=== PATIENT | female | born 1990 | race Caucasian/White ===

== ENCOUNTER → 2019-06-17 | Outpatient (CLI) | payer OTHER, SELFPAY ==
[2019-06-17 15:11] VITALS: BMI 30.3
[2019-06-17 17:40] LABS: Absolute Lymphocyte Count 1.62 X10^3/uL (0.83-4.51); Absolute Neutrophil Count 4.8 X10^3/uL (2.0-7.7); Basophil# 0.03 X10^3/uL; Basophil% 0.4 % (0-1); Eosinophil# 0.05 X10^3/uL; Eosinophils% 0.7 % (0-5); Hematocrit 39.1 % (37-47); Hemoglobin 12.9 g/dL (12.0-15.0); Lymphocyte # 1.62 X10^3/ul (4.0); Lymphocyte % 23.2 % (19-41); Mean Corpuscular Hgb 29.4 pg (27.0-32.0); Mean Corpuscular Volume 89.1 fL (81-99); Mean Platelet Vol. 10.4 fl (6.2-12.0); Monocyte# 0.45 X10^3/uL; Monocyte% 6.5 % (0-10); NRBC Flagged by Analyzer 0 % (0-5); Neutrophil # 4.79 X10^3/uL (2.7-7.7); Neutrophil % 68.8 % (47-70); Platelet Count 242 K/mm3 (150-450); RBC Distribution Width CV 11.9 % (11.6-14.6); RBC Distribution Width SD 39.1 fl (35.1-43.9); Red Blood Count 4.39 M/mm3 (4.2-5.4)
[2019-06-17 18:49] LABS: HIV - WCH Non-Reactive (Nonreactive); Rubella IgG 95.9 IU/mL
[2019-06-20 09:41] LABS: HPV Reflexed? NOT INDICATED
[2019-06-21 04:45] LABS: Rapid Plasmin Reagin (RPR) NONREACTIVE (NONREACTIVE)
== END | disposition home or self-care (01) ==
LOC: LAB 16:05
PROVIDERS: Family Provider Pediatrics; PCP Pediatrics; Referring Provider Nurse Practitioner Women's Health; Visit Provider Nurse Practitioner Women's Health
DX: Z34.90 Encounter for supervision of normal pregnancy, unspecified, unspecified trimester (principal)
CPT/HCPCS: 36415; 85025; 86592; 86703; 86762; 86850; 86900; 87086; 87088; 87624; 88175; G0145

== ENCOUNTER → 2019-07-19 | Outpatient (CLI) | payer OTHER, SELFPAY ==
[2019-07-19 17:00] VITALS: BMI 30.3
[2019-07-19 19:06] LABS: Chlamydia Trachomatis by PCR Negative (Negative); Neisserai gonorrhoeae by PCR Negative (Negative); Probe Check PASS; Sample Adequacy Control PASS; Specimen Processing Control PASS
== END | disposition home or self-care (01) ==
LOC: LAB 17:13
PROVIDERS: Family Provider Pediatrics; PCP Pediatrics; Referring Provider Obstetrics & Gynecology; Visit Provider Obstetrics & Gynecology
DX: Z34.81 Encounter for supervision of other normal pregnancy, first trimester (principal)
CPT/HCPCS: 36415; 87491; 87591

== ENCOUNTER → 2019-11-07 12:36 | Outpatient (CLI) | payer OTHER, SELFPAY ==
[2019-10-08 16:01] VITALS: BMI 30.3
[2019-11-07 13:03] LABS: Absolute Lymphocyte Count 1.56 X10^3/uL (0.83-4.51); Absolute Neutrophil Count 5.1 X10^3/uL (2.0-7.7); Basophil# 0.03 X10^3/uL; Basophil% 0.4 % (0-1); Eosinophil# 0.08 X10^3/uL; Eosinophils% 1.1 % (0-5); Hematocrit 33.8 % (37-47); Hemoglobin 11.3 g/dL (12.0-15.0); Lymphocyte # 1.56 X10^3/ul (4.0); Lymphocyte % 21.2 % (19-41); Mean Corp Hgb Conc 33.4 g/dL (32-36); Mean Corpuscular Hgb 30.2 pg (27.0-32.0); Mean Corpuscular Volume 90.4 fL (81-99); Monocyte# 0.51 X10^3/uL; Monocyte% 6.9 % (0-10); NRBC Flagged by Analyzer 0 % (0-5); Neutrophil # 5.12 X10^3/uL (2.7-7.7); Neutrophil % 69.7 % (47-70); Platelet Count 203 K/mm3 (150-450); RBC Distribution Width CV 12.7 % (11.6-14.6); RBC Distribution Width SD 41.3 fl (35.1-43.9); Red Blood Count 3.74 M/mm3 (4.2-5.4); White Blood Count 7.4 K/mm3 (4.4-11.0)
[2019-11-07 13:29] LABS: Glucose Challenge Gest 1H 50g 85 mg/dL (70-140)
[2019-11-07 13:57] LABS: Hepatitis B Surface Antigen Non-Reactive (Nonreactive)
== END ==
PROVIDERS: Family Provider Family Medicine; PCP Family Medicine; Referring Provider Obstetrics & Gynecology; Visit Provider Obstetrics & Gynecology
DX: Z34.00 Encounter for supervision of normal first pregnancy, unspecified trimester (principal)
CPT/HCPCS: 36415; 82950; 85025; 87340

== ENCOUNTER → 2020-01-03 | Outpatient (CLI) | payer OTHER, SELFPAY ==
[2020-01-03 16:13] VITALS: BMI 30.3
== END | disposition home or self-care (01) ==
LOC: LABSPEC 16:40
PROVIDERS: PCP Family Medicine; Referring Provider Obstetrics & Gynecology; Visit Provider Obstetrics & Gynecology
DX: Z34.93 Encounter for supervision of normal pregnancy, unspecified, third trimester (principal); Z3A.36 36 weeks gestation of pregnancy
CPT/HCPCS: 87081

== ENCOUNTER 2020-01-15 15:05 | Outpatient (CLI) | payer OTHER, SELFPAY ==
[2020-01-15 14:38] VITALS: BMI 30.3
[2020-01-15 15:21] VITALS: BMI 31.6
[2020-01-15 15:46] VITALS: BP 131/87; PULSE 86
[2020-01-15 15:53] LABS: Hematocrit 31.9 % (37-47); Hemoglobin 10.3 g/dL (12.0-15.0); Mean Corp Hgb Conc 32.3 g/dL (32-36); Mean Corpuscular Hgb 27.8 pg (27.0-32.0); Mean Corpuscular Volume 86.2 fL (81-99); Mean Platelet Vol. 12.3 fl (6.2-12.0); Platelet Count 157 K/mm3 (150-450); RBC Distribution Width CV 12.8 % (11.6-14.6); RBC Distribution Width SD 39.3 fl (35.1-43.9); White Blood Count 8.4 K/mm3 (4.4-11.0)
[2020-01-15 15:57] LABS: International Normalized Ratio 0.9; Partial Thromboplast Time 26.9 Seconds (24.1-36.2); Prothrombin Time (Protime)PT. 12.4 SECONDS (11.7-14.9)
[2020-01-15 16:02] VITALS: BP 135/80; PULSE 78
[2020-01-15 16:17] VITALS: BP 125/84; PULSE 83
[2020-01-15 16:32] VITALS: BP 135/93; PULSE 86
[2020-01-15 16:47] VITALS: BP 128/86; PULSE 79
[2020-01-15 16:52] LABS: AST(SGOT) 14 U/L (15-37); Alanine Aminotransfer ALT/SGPT 13 U/L (13-56); Creatinine, Serum 0.98 mg/dL (0.55-1.02); EST Glomerular Filtration Rate 72 mL/min (>60); Est Glom Filt Rate - Afr Amer 87 mL/min (>60); Estimated Creatinine Clearance 77.59 ml/min; Protein, Urine (Random) 19.7 mg/dL (<11.9); Protein:Creat Ratio 124 mg/g CRE (0-200); Uric Acid 5.7 mg/dL (2.6-6.0)
--- NOTE | 2020-01-16 16:27 | OB.TRI.PN ---
Progress Notes Date of Service: 01/15/20 Progress Note: Patient seen for elevated blood pressure in the office heart tone 130 moderate variability reactive no decelerations category 1 tracing [place]: No regular contractions Assessment and plan elevated blood pressure in the office with repeat blood pressures within normal limits normal preeclampsia labs. Patient asymptomatic at this time. Recommend preeclampsia precautions reviewed follow-up in the office for a blood pressure check. Laboratory Studies: Laboratory Tests 01/15/20 01/15/20 01/15/20 Range/Units 15:35 15:35 15:35 WBC (4.4-11.0) K/mm3 RBC (4.2-5.4) M/mm3 Hgb (12.0-15.0) g/dL Hct (37-47) % MCV (81-99) fL MCH (27.0-32.0) pg MCHC (32-36) g/dL RDW Std Deviation (35.1-43.9) fl RDW Coeff of Janelle (11.6-14.6) % Plt Count (150-450) K/mm3 MPV (6.2-12.0) fl PT 12.4 (11.7-14.9) SECONDS INR 0.9 APTT 26.9 (24.1-36.2) Seconds Creatinine 0.98 (0.55-1.02) mg/dL Estim Creat Clear Calc 77.59 ml/min Est GFR (MDRD) Af Amer 87 (>60) mL/min Est GFR (MDRD) Non-Af 72 (>60) mL/min Uric Acid 5.7 (2.6-6.0) mg/dL AST 14 L (15-37) U/L ALT 13 (13-56) U/L U Random Total Protein 19.7 H (<11.9) mg/dL Urine Creatinine 159.00 (NO RANGE EST.) mg/dL Protein/Creatinin Ratio 124 (0-200) mg/g CRE 01/15/20 Range/Units 15:35 WBC 8.4 (4.4-11.0) K/mm3 RBC 3.70 L (4.2-5.4) M/mm3 Hgb 10.3 L (12.0-15.0) g/dL Hct 31.9 L (37-47) % MCV 86.2 (81-99) fL MCH 27.8 (27.0-32.0) pg MCHC 32.3 (32-36) g/dL RDW Std Deviation 39.3 (35.1-43.9) fl RDW Coeff of Janelle 12.8 (11.6-14.6) % Plt Count 157 (150-450) K/mm3 MPV 12.3 H (6.2-12.0) fl PT (11.7-14.9) SECONDS INR APTT (24.1-36.2) Seconds Creatinine (0.55-1.02) mg/dL Estim Creat Clear Calc ml/min Est GFR (MDRD) Af Amer (>60) mL/min Est GFR (MDRD) Non-Af (>60) mL/min Uric Acid (2.6-6.0) mg/dL AST (15-37) U/L ALT (13-56) U/L U Random Total Protein (<11.9) mg/dL Urine Creatinine (NO RANGE EST.) mg/dL Protein/Creatinin Ratio (0-200) mg/g CRE Multi Select Codes - Urinary/Genital Urinary/Genital CPT Codes: 03325-65 non-stress test Interp
== END 2020-01-15 17:05 | disposition home or self-care (01) ==
LOC: WPOUT 15:15 → OBT 15:17
PROVIDERS: PCP Family Medicine; Referring Provider Obstetrics & Gynecology; Visit Provider Obstetrics & Gynecology
DX: O26.899 Other specified pregnancy related conditions, unspecified trimester (principal); R03.0 Elevated blood-pressure reading, without diagnosis of hypertension; Z3A.00 Weeks of gestation of pregnancy not specified
CPT/HCPCS: 36415; 59025; 59050; 82565; 82570; 84156; 84450; 84460; 84550; 85027; 85610; 85730; 99218; G0378

== ENCOUNTER → 2020-01-17 | Outpatient (CLI) | payer OTHER, SELFPAY ==
[2020-01-15 15:21] VITALS: BMI 31.6
[2020-01-17 08:33] LABS: Absolute Lymphocyte Count 2.06 X10^3/uL (0.83-4.51); Absolute Neutrophil Count 5.3 X10^3/uL (2.0-7.7); Basophil# 0.04 X10^3/uL; Basophil% 0.5 % (0-1); Eosinophil# 0.06 X10^3/uL; Eosinophils% 0.7 % (0-5); Hematocrit 36.9 % (37-47); Lymphocyte # 2.06 X10^3/ul (4.0); Lymphocyte % 25.3 % (19-41); Mean Corp Hgb Conc 32.5 g/dL (32-36); Mean Corpuscular Hgb 28.2 pg (27.0-32.0); Mean Corpuscular Volume 86.8 fL (81-99); Monocyte# 0.55 X10^3/uL; Monocyte% 6.8 % (0-10); NRBC Flagged by Analyzer 0 % (0-5); Neutrophil # 5.33 X10^3/uL (2.7-7.7); Neutrophil % 65.6 % (47-70); Platelet Count 168 K/mm3 (150-450); RBC Distribution Width CV 12.7 % (11.6-14.6); RBC Distribution Width SD 39.4 fl (35.1-43.9); Red Blood Count 4.25 M/mm3 (4.2-5.4); White Blood Count 8.1 K/mm3 (4.4-11.0)
[2020-01-17 08:46] LABS: Protein, Urine (Random) 26.7 mg/dL (<11.9); Protein:Creat Ratio 158 mg/g CRE (0-200)
[2020-01-17 08:48] LABS: ALB/GLOB Ratio 0.7 RATIO (0.9-2.4); AST(SGOT) 14 U/L (15-37); Alanine Aminotransfer ALT/SGPT 15 U/L (13-56); Albumin, Serum 2.9 g/dL (3.2-5.0); Alkaline Phosphatase 181 U/L (45-117); Anion Gap 6 (5-15); BUN 10 mg/dL (7-18); BUN/Creat Ratio 10.8 RATIO (10-20); Calcium,Total 8.8 mg/dL (8.5-10.1); Chloride 108 mmol/L (98-107); Creatinine, Serum 0.92 mg/dL (0.55-1.02); EST Glomerular Filtration Rate 77 mL/min (>60); Est Glom Filt Rate - Afr Amer 94 mL/min (>60); Globulin 4.2 g/dL (2.2-4.2); Glucose 78 mg/dL (74-106); Potassium 3.9 mmol/L (3.5-5.1); Protein, Total 7.1 g/dL (6.4-8.2); Sodium Level 138 mmol/L (136-145)
== END | disposition home or self-care (01) ==
LOC: PAVLAB 08:16
PROVIDERS: PCP Family Medicine; Referring Provider Obstetrics & Gynecology; Visit Provider Obstetrics & Gynecology
DX: O16.3 Unspecified maternal hypertension, third trimester (principal); Z3A.00 Weeks of gestation of pregnancy not specified
CPT/HCPCS: 36415; 80053; 82570; 84156; 85025

== ENCOUNTER → 2020-01-23 | Outpatient (CLI) | payer OTHER, SELFPAY ==
[2020-01-23 08:12] VITALS: BMI 31.6
[2020-01-23 08:51] LABS: Protein, Urine (Random) 25.1 mg/dL (<11.9); Protein:Creat Ratio 171 mg/g CRE (0-200)
== END | disposition home or self-care (01) ==
LOC: LABSPEC 08:24
PROVIDERS: PCP Family Medicine; Referring Provider Obstetrics & Gynecology; Visit Provider Obstetrics & Gynecology
DX: O16.9 Unspecified maternal hypertension, unspecified trimester (principal); Z3A.00 Weeks of gestation of pregnancy not specified
CPT/HCPCS: 82570; 84156

== ENCOUNTER 2020-02-05 03:48 | Inpatient (IN) | payer OTHER, SELFPAY ==
[2020-01-10 16:05] VITALS: BMI 30.3
[2020-01-31 15:48] VITALS: BMI 31.6
[2020-02-05] VITALS (80 sets, daily range): BP systolic 105–155; BP diastolic 60–98; PULSE 65–119; RESP 16–18; TEMP 36.6–37.9; O2SAT 92–100; BMI 31.1
[2020-02-05 03:48] LABS: ROM Internal Control Test YES-OK TO RESULT pt. (Internal QC)
[2020-02-05 03:49] LABS: ROM Patient Test POSITIVE (Negative)
[2020-02-05] MEDS: Lactated Ringers 1,000 ML 200 ML IV ×3 (04:05→15:33)
[2020-02-05] MEDS: Lactated Ringers 500 ML 999 ML IV ×3 (04:10→11:56)
[2020-02-05 04:20] LABS: Absolute Lymphocyte Count 2.13 X10^3/uL (0.83-4.51); Absolute Neutrophil Count 8.8 X10^3/uL (2.0-7.7); Basophil# 0.03 X10^3/uL; Basophil% 0.3 % (0-1); Eosinophil# 0.01 X10^3/uL; Eosinophils% 0.1 % (0-5); Hematocrit 34.1 % (37-47); Hemoglobin 11.3 g/dL (12.0-15.0); Lymphocyte # 2.13 X10^3/ul (4.0); Lymphocyte % 18.1 % (19-41); Mean Corp Hgb Conc 33.1 g/dL (32-36); Mean Corpuscular Volume 84.4 fL (81-99); Monocyte# 0.72 X10^3/uL; Monocyte% 6.1 % (0-10); NRBC Flagged by Analyzer 0 % (0-5); Neutrophil # 8.77 X10^3/uL (2.7-7.7); Neutrophil % 74.5 % (47-70); Platelet Count 176 K/mm3 (150-450); Red Blood Count 4.04 M/mm3 (4.2-5.4); White Blood Count 11.8 K/mm3 (4.4-11.0)
[2020-02-05] MEDS: fentaNYL-bupivacaine (epidural) 100 ML BAG EPIDURAL ×2 (05:22→10:15)
[2020-02-05] MEDS: Ondansetron 4 MG/2 ML Vial IV ×2 (07:20→11:25)
--- NOTE | 2020-02-05 07:34 | PCM.HP.OB ---
- Problem List (1) Active labor at term Status: Acute (2) Influenza vaccine administered Status: Acute Comment: Given on 08/16/19 (3) Status: Acute Qualifiers: Comment: decline ntd screen. declines carrier screening. NIPT low risk. Anatomy US normal (4) Supervision of normal first Status: Acute Qualifiers: Comment: PRR LILLY 01/30/20 gender surprise Spouse Lynn (5) Anxiety Status: Acute Comment: no meds, counseling encouraged History Date of Admission: 02/05/20 Final LILLY: 01/30/20 Gestational age: 40 Weeks and 6 Days History of this : This is a 29 year-old, G 1P0 at 40 weeks gestational age [place] in active labor made cervical change to 4 cm with positive rupture of membranes. Patient has had an uncomplicated and denies any vaginal bleeding reports some loss of fluid admits good movement.. Medical History: Medical History (Last Reviewed 01/31/20 @ 15:22 by Hyun Moyer) Anxiety (Acute) F41.9 no meds, counseling encouraged Surgical History: Surgical History (Last Reviewed 01/31/20 @ 15:22 by Hyun Moyer) s/p right ear surgery Allergies No Known Allergies Allergy (Verified 02/05/20 03:19) Home Medications: Home Medications prenat.vits,monica,[id number] 1 tab PO DAILY 06/17/19 Smoking Status: Former smoker NST - FHR Rate Baby A Baseline: 130 Variability:: Moderate Accelerations:: 15 x 15 Decelerations:: None NST Reactive:: Yes FHR Category:: Category I Uterine Activity:: Every 3 to 5 History Past Pregnancies: Past Pregnancies Delivery Date Name GA/ Weeks Outcome Route Wt Sex Labor Length Anesthesia Delivery Location Provider FOB Labs: Mom's Labs & Results 02/05/20 02/05/20 02/05/20 03:31 04:05 04:05 WBC 11.8 H RBC 4.04 L Hgb 11.3 L Hct 34.1 L MCV 84.4 MCH 28.0 MCHC 33.1 RDW Std Deviation 39.0 RDW Coeff of Janelle 13.0 Plt Count 176 MPV 13.0 H Immature Gran % (Auto) 0.900 Neut % (Auto) 74.5 H Lymph % (Auto) 18.1 L [place] % (Auto) 6.1 Eos % (Auto) 0.1 Baso % (Auto) 0.3 Absolute Neuts (auto) 8.8 H Absolute Lymphs (auto) 2.13 Nucleated RBC % 0 Vag Amniotic Fld Detect POSITIVE H Blood Type O POSITIVE Antibody Screen NEGATIVE Course Did the patient receive Yes care? Labs Blood Type: O RH: POSITIVE RPR/VDRL/Syphilis Nonreactive Rubella status Immune HbSAg Negative Date Done: 11/07/20 Chlamydia Negative Gonorrhea Negative HIV/AIDS Non-Reactive Group B Strep: Negative Current Obstetrical History Gestational Diabetes No Incompetent Cervix No Infertility No IUGR No Macrosomia No Hypertension/Pre-eclampsia No: had elevated bp x2, lab work done once and was wnl Placenta Previa/Abruption No PTL/PROM No Uterine anomaly No Oligohydramnios No Polyhydramnios No Multiple gestation No Past Medical History Asthma No Diabetes No Hypertension No Heart disease No Mitral valve prolapse No Neurologic/Seizure disorder/ No Migraines Kidney disease No Liver disease No Varicosities No Clotting disorders/Hx of DVT No Thyroid Dysfunction No Other medical diseases No Psychiatric disorders No Major trauma No Abnormal PAP smear No Sleep apnea No Mammogram in the last 2 years No Enter DETAILS of medical hx of anxiety history Social History Marital Status: Alleged father lynn gong Hx Smoking Yes Smoking Status Former smoker Expected Infant Delivery Method: Spontaneous Vaginal Review of Systems Constitutional: Denies: Fever, Malaise Eyes: Denies: Blurred vision, Vision Change HEENT: Denies: Head Aches, Visual Changes Cardiovascular: Denies: Chest Pain, Palpitations Respiratory: Denies: Cough, Shortness of Breath, Wheezing Gastrointestinal: Denies: Abdominal Pain, Diarrhea, Nausea, Vomiting Genitourinary: Denies: Dysuria, Hematuria Musculoskeletal: Denies: Joint Pain, Muscle pain Skin: Denies: Lesions, Rash Neurological: Denies: Blurred vision, Focal weakness, Headaches Psychiatric: Denies: Anxiety, Depression Endocrine: Denies: Heat/ Cold Intolerance Hematologic/ Lymphatic: Denies: Easy Bruising, Easy Bleeding Physical Exam Vitals: Vital Signs Temp Pulse BP Pulse Ox 98.0 F 88 112/68 100 02/05/20 07:03 02/05/20 07:03 02/05/20 07:03 02/05/20 06:53 General: Alert, Cooperative, No apparent distress HEENT: Atraumatic, Normocephalic. Negative for: Thyromegaly, Lymphadenopathy Cardiovascular: Regular rate Lungs: Normal air movement Abdomen: Soft, Non Tender, Gravid Neurological: Deep Tendon Reflexes 2+/4 and Symmetrical, Neuro grossly intact. Negative for: Clonus [employer]: Normal external genitalia. Negative for: Vulvar lesions Estimated gestational size: Appropriate for gestational size Presentation: Cephalic Cervix Dilation (cm): 4 Assessment/Plan All Active Problems (Last Reviewed 01/31/20 @ 15:22 by Hyun Moyer) Active labor at term (Acute) Elevated blood pressure affecting , antepartum (Acute) Influenza vaccine administered (Acute) (Acute) Supervision of normal first (Acute) Anxiety (Acute) This is a 29 year-old, at 40 weeks gestational age presents in active labor. Patient presents IAL, plan expectant management for , AROM clear fluid, Pitocin if needed. Pain management: Plans epidural. GBS negative. Management of any complications: None I have reviewed the [facility] and made any clinically relevant updates.
[2020-02-05] MEDS: fentaNYL 100 MCG/2 ML Ampul IV (10:25)
[2020-02-05] MEDS: DiphenhydrAMINE 50 MG/ML Syringe 25 MG IV (12:47)
--- NOTE | 2020-02-05 15:43 | PCM.OPRPT ---
Problem List (1) Active labor at term Status: Acute (2) Influenza vaccine administered Status: Acute Comment: Given on 08/16/19 (3) Status: Acute Qualifiers: Comment: decline ntd screen. declines carrier screening. NIPT low risk. Anatomy US normal (4) Supervision of normal first Status: Acute Qualifiers: Comment: PRR LILLY 01/30/20 gender surprise Spouse Wilian (5) Anxiety Status: Acute Comment: no meds, counseling encouraged Vaginal Delivery Maternal Presentation: Active Labor ial Amniotic Membrane Rupture Type: Spontaneous at home Amniotic Fluid Description: Clear Final LILLY: 01/30/20 Gestational age: 41 Weeks and 0 Days Date of Procedure: 02/05/20 Pre-Operative Diagnosis: ial Post-Operative Diagnosis: same Surgery/ Procedure Performed: Spontaneous Vaginal Delivery Type of Anesthesia: None Description of Procedure: Patient began pushing and delivered the head in the KANDI presentation. The head was delivered atraumatically. The anterior and posterior shoulders delivered without complication followed by the rest of the and the was placed on the maternal abdomen. Delayed cord clamping was employed for approximately 60 seconds. Cord was clamped and cut and gentle traction was applied to the cord and the placenta delivered spontaneously immediately following it was noted to be intact with three-vessel cord. The perineum and vagina were inspected and noted to have a second-degree perineal laceration that was repaired in the usual fashion with 3-0 Vicryl Rapide. EBL was 300 cc. Patient and infant tolerated delivery well. Presentation: KANDI Placental Delivery Description: Spontaneous Placenta Disposition: [facility] Cord Entanglement: None Estimated Blood Loss: 300 Infant A gender: Male Episiotomy Description: None Laceration: Perineal Extension/lac, 2nd degree Medications given after delivery: IV Pitocin Complications: None Multi Select Codes - Urinary/Genital Urinary/Genital CPT Codes: 61317 Vaginal Delivery [facility]
[2020-02-05] MEDS: Oxytocin 30 units/NS 500 ml 30 UNITS/500 ML IV.SOLN 334 UNITS IV (15:58)
[2020-02-05] MEDS: Acetaminophen 500 MG Tablet 1000 MG PO (22:54)
[2020-02-06] VITALS: BP 117/77; PULSE 78; RESP 16; TEMP 37.1
[2020-02-06] MEDS: Naproxen 250 MG Tablet 500 MG PO (01:50)
[2020-02-06 04:55] VITALS: BP 122/60; PULSE 69; RESP 16; TEMP 37.1
[2020-02-06] MEDS: Senna/Docusate Sodium 1 Tablet PO (06:17)
[2020-02-06 08:00] VITALS: BP 125/73; PULSE 77; RESP 18; TEMP 37.1
--- NOTE | 2020-02-06 08:01 | PCM.PN.OB ---
Patient Problems: Active and Suspected Problems (Last Reviewed 01/31/20 @ 15:22 by Hyun Moyer) Active labor at term (Acute) Subjective: Doing well, no complaints.Pain controlled. Denies CP, SOB, N,V. Ambulating well, tolerating po. Lochia moderate, going well. - Physical Exam Vitals/I&O's: Vital Signs Temp Pulse Resp BP Pulse Ox 98.7 F 69 16 122/60 H 98 02/06/20 04:55 02/06/20 04:55 02/06/20 04:55 02/06/20 04:55 02/05/20 20:34 Oxygen Delivery Method Room Air Weight: 187 lb 8 oz Body Mass Index (BMI) 31.1 Intake and Output for Last 24 Hours 02/04/20 02/05/20 02/06/20 23:59 23:59 23:59 Intake Total 4049.99 / 4049.99 0 / 0 Output Total 950 / 1950 1000 / 1000 Balance 3099.99 / 2099.99 -1000 / -1000 General: Alert, Oriented x3 Abdomen: Soft, Non Tender, - - FF below U Current Medications Acetaminophen (Tylenol) 1,000 mg PO Q8H PRN PRN PRN Reason: Pain Score 1-3/10 Last Admin: 02/05/20 22:54 Dose: 1,000 mg Documented by: Bisacodyl (Dulcolax) 10 mg RECTAL UD PRN PRN Reason: If no BM Dibucaine (Dibucaine) 1 applic TOPICAL TID PRN PRN; Protocol PRN Reason: Discomfort Hydrocortisone (Hytone) 1 applic TOPICAL TID PRN PRN; Protocol PRN Reason: Discomfort Methylergonovine Maleate (Methergine) 0.2 mg IM X1 PRN PRN Reason: Excess bleeding/uterine atony Naproxen (Naprosyn) 500 mg PO Q8H PRN PRN PRN Reason: Pain Score 1-3/10 Last Admin: 02/06/20 01:50 Dose: 500 mg Documented by: Ondansetron HCl (Zofran) 4 mg IV Q4H PRN PRN PRN Reason: Nausea Oxycodone HCl (Oxyir) 5 - 10 mg PO Q4H PRN PRN PRN Reason: Pain Score 4-10/10 Multivit/Folic Acid/Iron (Prenatabs Fa) 1 tablet PO DAILY@1200 CODY Senna/Docusate Sodium (Senokot-S, Eli-Colace) 1 - 2 tablet PO DAILY PRN PRN PRN Reason: Constipation Last Admin: 02/06/20 06:17 Dose: 2 tablet Documented by: Simethicone (Mylicon) 80 mg PO PCHS PRN PRN Reason: Indigestion/Stomach pain Sodium Chloride () 5 - 15 ml IV UD PRN PRN Reason: SALINE FLUSH Medical Necessity - Tobacco Use Smoking Status: Former smoker Assessment/Plan All Active Problems (Last Reviewed 01/31/20 @ 15:22 by Hyun Moyer) Active labor at term (Acute) Elevated blood pressure affecting , antepartum (Acute) Influenza vaccine administered (Acute) (Acute) Supervision of normal first (Acute) Anxiety (Acute) s/p PPD # 1 1. routine post delivery care 2. breast feeding- support given 3. rh positive 4. rubella immune
[2020-02-06 12:00] VITALS: BP 114/76; PULSE 68; RESP 20; TEMP 36.7
[2020-02-06] MEDS: Prenatal Vits Tablet 1 TABLET PO (13:41)
[2020-02-06 16:00] VITALS: BP 120/72; PULSE 81; RESP 18; TEMP 36.3
[2020-02-06 20:23] VITALS: BP 133/91; PULSE 89; RESP 16; TEMP 36.9
[2020-02-07 01:18] VITALS: BP 126/85; PULSE 76; RESP 16; TEMP 37.3
--- NOTE | 2020-02-07 07:53 | PCM.PN.OB ---
Patient Problems: Active and Suspected Problems (Last Reviewed 01/31/20 @ 15:22 by Hyun Moyer) Active labor at term (Acute) Subjective: doing well no complaints pain controlled no CP SOB N V ambulating well tolerating po lochia moderate, going well - Physical Exam Vitals/I&O's: Vital Signs Temp Pulse Resp BP Pulse Ox 99.1 F 76 16 126/85 H 98 02/07/20 01:18 02/07/20 01:18 02/07/20 01:18 02/07/20 01:18 02/05/20 20:34 Oxygen Delivery Method Room Air Weight: 187 lb 8 oz Body Mass Index (BMI) 31.1 Intake and Output for Last 24 Hours 02/05/20 02/06/20 02/07/20 23:59 23:59 23:59 Intake Total 4049.99 / 4049.99 0 / 0 Output Total 950 / 1950 1000 / 1000 Balance 3099.99 / 2099.99 -1000 / -1000 General: Alert, Oriented x3 Current Medications Acetaminophen (Tylenol) 1,000 mg PO Q8H PRN PRN PRN Reason: Pain Score 1-3/10 Last Admin: 02/05/20 22:54 Dose: 1,000 mg Documented by: Bisacodyl (Dulcolax) 10 mg RECTAL UD PRN PRN Reason: If no BM Dibucaine (Dibucaine) 1 applic TOPICAL TID PRN PRN; Protocol PRN Reason: Discomfort Hydrocortisone (Hytone) 1 applic TOPICAL TID PRN PRN; Protocol PRN Reason: Discomfort Methylergonovine Maleate (Methergine) 0.2 mg IM X1 PRN PRN Reason: Excess bleeding/uterine atony Naproxen (Naprosyn) 500 mg PO Q8H PRN PRN PRN Reason: Pain Score 1-3/10 Last Admin: 02/06/20 01:50 Dose: 500 mg Documented by: Ondansetron HCl (Zofran) 4 mg IV Q4H PRN PRN PRN Reason: Nausea Oxycodone HCl (Oxyir) 5 - 10 mg PO Q4H PRN PRN PRN Reason: Pain Score 4-10/10 Multivit/Folic Acid/Iron (Prenatabs Fa) 1 tablet PO DAILY@1200 CODY Last Admin: 02/06/20 13:41 Dose: 1 tablet Documented by: Senna/Docusate Sodium (Senokot-S, Eli-Colace) 1 - 2 tablet PO DAILY PRN PRN PRN Reason: Constipation Last Admin: 02/06/20 06:17 Dose: 2 tablet Documented by: Simethicone (Mylicon) 80 mg PO PCHS PRN PRN Reason: Indigestion/Stomach pain Sodium Chloride () 5 - 15 ml IV UD PRN PRN Reason: SALINE FLUSH Medical Necessity - Tobacco Use Smoking Status: Former smoker Assessment/Plan All Active Problems (Last Reviewed 01/31/20 @ 15:22 by Hyun Moyer) Active labor at term (Acute) Elevated blood pressure affecting , antepartum (Acute) Influenza vaccine administered (Acute) (Acute) Supervision of normal first (Acute) Anxiety (Acute) s/p PPD # 2 1. routine post delivery care 2. breast feeding- support given 3. rh positive 4. rubella immune
[2020-02-07 07:54] VITALS: BP 126/80; PULSE 74; RESP 18; TEMP 36.6; O2SAT 97
--- NOTE | 2020-02-07 07:54 | DCINST_ITS ---
Discharge Diet: No Restrictions Discharge Activity: Return to Normal Activity, May not drive while taking narcotic pain medications., May Shower May resume sexual activity in: 4-6 weeks Call your doctor if your incision/area has: Continuous Slow Oozing, Sudden Increased Bleeding, Increased Pain/ Swelling, Increased Redness, Foul Smelling Discharge Additional Instructions: If you experience any of the following, contact your healthcare provider. * Bleeding that soaks a pad every hour for 2 hours * Fever 100.4 or higher * Unrelieved incision or abdominal pain * Swelling, redness, discharge or bleeding from your incision or episiotomy site * Your incision begins to separate * Problems urinating (including inability to urinate or burning while urinating). * Visual changes * Severe headache * Flu-like symptoms * Pain or redness in one of both of your breasts * Pain, warmth, tenderness or swelling in your legs, especially the calf area * Frequent nausea and vomiting * Symptoms of depression or anxiety If you experience any of the following, call 911 or go to the nearest Emergency Room. * Chest pain * Problems breathing * Seizure activity * Partial or complete paralysis of a body part, slurred speech, weakness or drooping of the face, or a sudden inability to walk or hold your balance Allergies/Adverse Reactions: Allergies No Known Allergies Allergy (Verified 02/05/20 03:19) Medications to take at Discharge prenat.vits,monica,[id number] 1 tab PO DAILY 06/17/19 Naproxen [Naprosyn] 250 - 500 mg PO Q8H PRN PRN #30 tab 02/07/20 The following prescriptions were given: Naproxen [Naprosyn] 250 - 500 mg PO Q8H PRN PRN #30 tab PRN Reason: MILD PAIN Transmission Status: Pending to [facility] Please Follow Up With: Chari Zheng MD - [phone] When: Call to make an appointment with your doctor in 6 weeks. If you had elevated Blood pressure or 4th degree laceration you will need to be seen in 2 weeks. Primary Care Physician: Socrates Devlin MD [Primary Care Provider] - Test Results: Test results from this visit will be discussed in further detail at your follow- up appointment, if applicable.
--- NOTE | 2020-02-07 07:54 | PCM.DCVAG ---
Discharge Diet: No Restrictions Discharge Activity: Return to Normal Activity, May not drive while taking narcotic pain medications., May Shower May resume sexual activity in: 4-6 weeks Call your doctor if your incision/area has: Continuous Slow Oozing, Sudden Increased Bleeding, Increased Pain/ Swelling, Increased Redness, Foul Smelling Discharge Additional Instructions: If you experience any of the following, contact your healthcare provider. Bleeding that soaks a pad every hour for 2 hours Fever 100.4 or higher Unrelieved incision or abdominal pain Swelling, redness, discharge or bleeding from your incision or episiotomy site Your incision begins to separate Problems urinating (including inability to urinate or burning while urinating). Visual changes Severe headache Flu-like symptoms Pain or redness in one of both of your breasts Pain, warmth, tenderness or swelling in your legs, especially the calf area Frequent nausea and vomiting Symptoms of depression or anxiety If you experience any of the following, call 911 or go to the nearest Emergency Room. Chest pain Problems breathing Seizure activity Partial or complete paralysis of a body part, slurred speech, weakness or drooping of the face, or a sudden inability to walk or hold your balance Allergies/Adverse Reactions: Allergies No Known Allergies Allergy (Verified 02/05/20 03:19) Medications to take at Discharge prenat.vits,monica,[id number] 1 tab PO DAILY 06/17/19 Naproxen [Naprosyn] 250 - 500 mg PO Q8H PRN PRN #30 tab 02/07/20 The following prescriptions were given: Naproxen [Naprosyn] 250 - 500 mg PO Q8H PRN PRN #30 tab PRN Reason: MILD PAIN Transmission Status: Pending to [facility] Please Follow Up With: Chari Zheng MD - [phone] When: Call to make an appointment with your doctor in 6 weeks. If you had elevated Blood pressure or 4th degree laceration you will need to be seen in 2 weeks. Primary Care Physician: Socrates Devlin MD [Primary Care Provider] - Test Results: Test results from this visit will be discussed in further detail at your follow-up appointment, if applicable.
[2020-02-07 08:15] VITALS: BP 126/80; PULSE 74; RESP 18; TEMP 36.6; O2SAT 97
[2020-02-07] MEDS: Senna/Docusate Sodium 1 Tablet PO (08:33)
== END 2020-02-07 11:35 | disposition home or self-care (01) | DRG 807 ==
LOC: WP 16:01
PROVIDERS: Admitting Provider Obstetrics & Gynecology; PCP Family Medicine; Referring Provider Obstetrics & Gynecology; Visit Provider Obstetrics & Gynecology
DX: O48.0 Post-term pregnancy (principal); Z37.0 Single live birth; Z3A.40 40 weeks gestation of pregnancy; O70.1 Second degree perineal laceration during delivery
CPT/HCPCS: 59025; 59050; 84112; 85025; 86850; 86900; 86901; 99218; J7120; G0378; J2405

== ENCOUNTER → 2021-03-24 | Outpatient (CLI) | payer BC, SELFPAY ==
[2021-03-24 15:38] VITALS: BMI 31.1
== END | disposition home or self-care (01) ==
LOC: LABSPEC 16:45
PROVIDERS: PCP Family Medicine; Visit Provider Nurse Practitioner Women's Health
DX: N94.9 Unspecified condition associated with female genital organs and menstrual cycle (principal)
CPT/HCPCS: 87070; 87205

== ENCOUNTER → 2021-08-11 16:33 | Outpatient (CLI) | payer BC, SELFPAY | PROVIDERS: PCP Family Medicine; Visit Provider Obstetrics & Gynecology | DX: R35.0 Frequency of micturition (principal) | CPT/HCPCS: 87086; 87088 ==

== ENCOUNTER → 2022-06-24 | Outpatient (CLI) | payer OTHER, SELFPAY ==
--- NOTE | 2022-06-24 18:25 | US_ITS ---
HISTORY: check viability. LMP: 05/07/2022. TECHNIQUE: Transvaginal pelvic ultrasound was performed. 90 images. COMPARISON: None. FINDINGS: UTERUS: 9.5 x 6 x 5 cm. RIGHT OVARY: 3 x 3.6 x 2.5 cm. 2.3 cm and 1.8 cm cysts. LEFT OVARY: 1.5 x 3.2 x 1.7 cm with small follicles. No adnexal masses. FREE FLUID: None. INTRAUTERINE GESTATIONAL SAC: Single. Mean sac diameter 2.7 cm corresponding to 7 weeks 5 days. YOLK SAC: 4 mm, slightly irregular contour. Additional 8 mm irregular yolk sac in the gestational sac without associated pole. POLE: [place]-rump length 6 mm. ESTIMATED GESTATIONAL AGE: 6 weeks 4 days. HEART MOTION: 125 bpm. ESTIMATED DELIVERY DATE: 02/09/2023. US/Transvaginal w/Preg US IMPRESSION: Single living intrauterine with an estimated gestational age of 6 weeks 4 days. Second 8 mm irregular yolk sac in the gestational sac without pole. Small right ovarian cysts. Electronically Signed: Beth Reese MD at 8:21 EDT ,
== END | disposition home or self-care (01) ==
PROVIDERS: PCP Family Medicine; Visit Provider Obstetrics & Gynecology
DX: Z34.91 Encounter for supervision of normal pregnancy, unspecified, first trimester (principal); Z3A.01 Less than 8 weeks gestation of pregnancy
CPT/HCPCS: 36415; 76817; 84702

== ENCOUNTER → 2022-07-12 | Outpatient (CLI) | payer OTHER, SELFPAY ==
[2022-07-12 16:36] LABS: Amphetamine Urine VISTA NEGATIVE (<1000 ng/mL); Barbiturate Urine VISTA NEGATIVE (< 200 ng/mL); Benzodiazepine Urine VISTA NEGATIVE (< 200 ng/mL); Cocaine Urine VISTA NEGATIVE (< 300 ng/mL); Ecstacy Urine VISTA NEGATIVE (< 500 ng/mL); Methadone Urine VISTA NEGATIVE (< 300 ng/mL); PCP Urine VISTA NEGATIVE (< 25 ng/mL); THC Urine VISTA NEGATIVE (< 50 ng/mL); Vista UDS pH Range 4
[2022-07-15 00:06] LABS: Chlamydia By Nucleic Acid AMP Negative (Negative)
[2022-07-17 14:20] LABS: Gonococcus By Nucleic Acid AMP Negative (Negative)
[2022-07-21 16:41] LABS: HPV Reflexed? NOT INDICATED
== END | disposition home or self-care (01) ==
LOC: LABSPEC 15:59
PROVIDERS: PCP Family Medicine; Visit Provider Obstetrics & Gynecology
DX: Z34.90 Encounter for supervision of normal pregnancy, unspecified, unspecified trimester (principal)
CPT/HCPCS: 80307; 87086; 87088; 87491; 87591; 88175; G0145

== ENCOUNTER → 2022-08-12 | Outpatient (CLI) | payer OTHER, SELFPAY ==
[2022-08-12 11:15] LABS: Absolute Lymphocyte Count 1.82 X10^3/uL (0.83-4.51); Absolute Neutrophil Count 4.2 X10^3/uL (2.0-7.7); Basophil# 0.03 X10^3/uL; Basophil% 0.5 % (0-1); Eosinophil# 0.06 X10^3/uL; Eosinophils% 0.9 % (0-5); Hematocrit 36.2 % (37-47); Hemoglobin 12.4 g/dL (12.0-15.0); Lymphocyte # 1.82 X10^3/ul (0.83-4.51); Mean Corp Hgb Conc 34.3 g/dL (32-36); Mean Corpuscular Hgb 29.9 pg (27.0-32.0); Mean Corpuscular Volume 87.2 fL (81-99); Mean Platelet Vol. 10.4 fl (6.2-12.0); Monocyte# 0.38 X10^3/uL; Monocyte% 5.8 % (0-10); NRBC Flagged by Analyzer 0 % (0-5); Neutrophil % 64.5 % (47-70); Platelet Count 189 K/mm3 (150-450); RBC Distribution Width CV 12.2 % (11.6-14.6); RBC Distribution Width SD 38.9 fl (35.1-43.9); Red Blood Count 4.15 M/mm3 (4.2-5.4); White Blood Count 6.5 K/mm3 (4.4-11.0)
[2022-08-12 12:23] LABS: HIV - WCH Non-Reactive (Nonreactive); Hepatitis B Surface Antigen Non-Reactive (Nonreactive); Hepatitis C Antibody Non-Reactive (Nonreactive); Rubella IgG Reactive (Nonreactive); Syphilis Antibodies Non-reactive
== END | disposition home or self-care (01) ==
LOC: PAVLAB 10:55
PROVIDERS: PCP Family Medicine; Referring Provider Obstetrics & Gynecology; Visit Provider Obstetrics & Gynecology
DX: Z34.90 Encounter for supervision of normal pregnancy, unspecified, unspecified trimester (principal)
CPT/HCPCS: 36415; 85025; 86703; 86762; 86780; 86803; 86850; 86900; 86901; 87340

== ENCOUNTER 2022-09-20 18:07 | Emergency (ER) | payer OTHER, SELFPAY ==
[2022-09-20 18:07] VITALS: BP 123/92; PULSE 86; RESP 18; TEMP 36.1; O2SAT 99; BMI 29.2
--- NOTE | 2022-09-20 18:10 | NURSING ---
NO OLD EKGS
--- NOTE | 2022-09-20 18:58 | EDS_ITS ---
HPI History of Present Illness Chief Complaint: Chest Pain Informant: patient Onset/Context/Timing Onset: Today and Hours (3-4) Activity at onset: sudden Timing: Continuous Quality: Positive for Aching and Tightness Location: Right Chest and Left Chest Worsened By: Nothing Relieved By: Nothing Associated Symptoms: Positive for Palpitations; Negative for Nausea, Vomiting, Diaphoresis, Dyspnea, Cough, Fever, Lightheadedness or Acid Reflux Narrative Narrative: Patient is aPatient presents with chest pain that began approximately 3 hours prior to arrival. Patient states it began rather suddenly. Patient describes it as aching and tightness across her chest. Patient states it is across both sides of her chest. Patient states nothing makes it worse and nothing makes it better. Patient denies any shortness of breath or lightheadedness. Patient does admit to some palpitations where she feels like her heart is skipping beats. Patient is approximately 19 weeks . Patient denies any abnormal vaginal bleeding or discharge. Patient denies any abdominal cramping. CVD Risk Factors: Negative for Hypertension, Diabetes, Hypercholesterolemia, Family History 1' </=55 or Smoking PE Risk Factors: Positive for Recent Travel/Surgery (Recent melanoma removal) and Cancer (Melanoma); Negative for Recent Immobilization or Prior DVT or PE [facility] Medical History Anxiety Melanoma Home Medications prenat.vits,monica,jiq-[id number] 1 tab PO DAILY vitamin 06/17/19 [History Last Taken 02/04/20 08:00] Allergy/AdvReac Type Severity Reaction Status Date / Time No Known Allergies Allergy Verified 09/20/22 18:09 Family History Father Diabetes Colon cancer Surgical History s/p right ear surgery Social History adopted: No household members: spouse and children number of children: 1 current occupational status: employed current occupation: [employer] pets and animals: Yes pets and animals: dog(s) history of recent travel: No sexually active: Yes Smoking Status: Never smoker alcohol intake: former details: occasionally- not while substance use type: does not use well-balanced diet: daily or most days caffeine: No eating out: rarely or never during the past year weight has: remained stable what type of physical activity do you participate in: walking frequency: 1-2 times per week duration: 15-30 minutes/day alba/taoism: Adventism seatbelt use: always do you feel safe at home: Yes additional social history: [employer] 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 ROS ROS ED Constitutional Constitutional ED: Denies chills or fever(s) Eyes Eyes: Denies blurry vision or change in vision ENT ENT ED: Denies rhinorrhea or sore throat Cardiovascular Cardiovascular: Reports chest pain and palpitations Respiratory/Chest Respiratory/Chest: Denies cough or dyspnea Gastrointestinal Gastrointestinal: Denies abdominal pain, nausea or vomiting Genitourinary Genitourinary ED: Denies dysuria or hematuria Musculoskeletal Musculoskeletal: Reports back pain; Denies neck pain Integumentary Denies abscess or rash Neurologic Neurologic: Denies headache(s) or weakness Allergic/Immunologic Allergic/Immunologic ED: Denies mouth swelling or urticaria EXAM Physical Exam Const Vital Signs: 09/20/22 18:07 09/20/22 18:53 09/20/22 19:15 Temperature 97 F L Temperature Source Temporal Pulse Rate 86 Respiratory Rate 18 Respiratory Effort Normal Non-Labored Blood Pressure 123/92 H Blood Pressure Mean 102 Pulse Ox 99 98 Oxygen Delivery Method Room Air Room Air 09/20/22 19:07 09/20/22 20:43 Temperature 98.5 F Temperature Source Temporal Pulse Rate 95 86 Respiratory Rate 15 20 H Respiratory Effort Blood Pressure 125/77 H 118/84 H Blood Pressure Mean 93 95 Pulse Ox 99 99 Oxygen Delivery Method Room Air Room Air Positive well nourished, well developed and obese General Appearance ED: well developed and NAD Nutritional Appearance: obese HEENT normocephalic and atraumatic Eyes PERRL and EOMs intact bilaterally Neck supple and no JVD Chest Wall palpation of chest normal Resp normal respiratory effort and clear to auscultation bilaterally Effort and Inspection: Negative for respiratory distress Cardio regular rate, regular rhythm and no murmurs GI normal to inspection, nondistended, normoactive bowel sounds, soft to palpation, non-tender and non-distended Extremity normal to inspection General Extremety ED: Negative for edema or tenderness General Extremity: Negative for edema Neuro oriented x3, CN's II-XII intact bilaterally and no sensory deficits noted Sensorium / Orientation: awake and alert Motor Exam: strength 5/5 throughout Psych mental status grossly normal Heart Score History: Slightly/Non-Suspicious ECG: Normal Age: </= 45 years Risk Factors: No Risk Factors Score: 0 MDM MDM MDM Narrative Medical decision making narrative: EKG was obtained. On my interpretation, it showed a normal sinus rhythm with a rate of 91. [place] interval, QRS interval, and QTc intervals were all normal. [place] was normal. There are no acute ST or T wave changes. Portable 1 view chest x- ray was obtained. On my interpretation, lung lbuin are clear. There is normal cardiac silhouette. Bony thorax is normal. There is no acute process noted. Radiologist also interpreted the x-ray and agrees. CBC was within normal limits. Basic metabolic profile was within normal limits. High-sensitivity troponin was less than 3. D-dimer was elevated 2.27. Because of this, CTA of the chest was obtained. There is no evidence of pulmonary embolism or aortic dissection. This was interpreted by the radiologist and reviewed by myself. Patient was advised of her findings. 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 Patient understood and was agreeable with the plan. All questions were answered. Lab Data Attestation: I reviewed the patient's lab results. Labs: Laboratory Results - last 24 hr 09/20/22 09/20/22 09/20/22 19:12 19:12 19:12 WBC 7.5 RBC 3.85 L Hgb 11.5 L Hct 33.5 L MCV 87.0 MCH 29.9 MCHC 34.3 RDW Std Deviation 39.7 RDW Coeff of Janelle 12.6 Plt Count 163 MPV 10.3 Immature Gran % (Auto) 0.500 Neut % (Auto) 66.2 Lymph % (Auto) 24.2 Wells % (Auto) 7.4 Eos % (Auto) 1.2 Baso % (Auto) 0.5 Absolute Neuts (auto) 5.0 Absolute Lymphs (auto) 1.82 Nucleated RBC % 0 D-Dimer Quant (PE/DVT) 2.27 H* Sodium 137 Potassium 3.7 Chloride 107 Carbon Dioxide 21.0 Anion Gap 9 BUN 15 Creatinine 0.78 Estim Creat Clear Calc 95.76 Est GFR (MDRD) Af Amer 111 Est GFR (MDRD) Non-Af 92 BUN/Creatinine Ratio 19.1 Glucose 82 Calcium 8.7 Troponin I High Sens < 3 L Radiography Diagnostic Testing: Clinical Impression(s) from Imaging Studies Chest X-Ray 09/20/22 19:18 IMPRESSION: There are no acute findings. Electronically Signed: Colton Cohn MD at 19:29 EST , Chest CTA 09/20/22 19:54 IMPRESSION: No acute findings in the visualized arteries of the chest. Electronically Signed: Colton Cohn MD at 20:31 EST , EKG Initial EKG: Attestation: I personally reviewed and interpreted this EKG as follows: Interpretation: Sinus Rhythm (91) and No Acute Injury Pattern Prior EKG tracings: not available for review Prior: No Prior Discharge Plan Triage Chief Complaint: Chest Pain ED Provider: Haresh Garcia Dx/Rx/DC Orders Clinical Impression: Chest pain, Instructions: ED Chest Pain, Uncertain Cause Prescriptions: No Action prenat.vits,monica,[id number] Tablet 1 tab PO DAILY Primary Care Provider: Socrates Devlin Referrals: Socrates Devlin MD [Primary Care Provider] - 5-7 Days Disposition Disposition: Home, Self Care
--- NOTE | 2022-09-20 19:05 | EKG12_ITS ---
Test Reason : CP Blood Pressure : / mmHG Vent. Rate : 091 BPM Atrial Rate : 091 BPM P-R Int : 146 ms QRS Dur : 076 ms QT Int : 354 ms P-R-T Axes : 024 078 026 degrees QTc Int : 435 ms Normal sinus rhythm Normal ECG Confirmed by MYNOR EDWARDS, LANDY ([id number]), book editor ZOE JAIMES ([id number]) on 09/21/2022 11:21:32 AM Referred By: Confirmed By:LANDY LOWE MD
[2022-09-20 19:07] VITALS: BP 125/77; PULSE 95; RESP 15; O2SAT 99
[2022-09-20] MEDS: Aspirin 81 MG TAB.CHEW 324 MG PO (19:13)
[2022-09-20 19:15] VITALS: O2SAT 98
--- NOTE | 2022-09-20 19:18 | RAD_ITS ---
STUDY: X-RAY CHEST REASON FOR EXAM: Female, 31 years old. CHEST PAIN chest pain -- Shield abdomen TECHNIQUE: XR Chest 1 View COMPARISON: None FINDINGS: There is no demonstrated pleural abnormality. Normal size heart. Normal mediastinum and la. Normal visualized pulmonary arteries. Normal visualized aortic arch and descending thoracic aorta. Normal visualized thoracic spine. Normal visualized ribs, clavicles, and shoulders. There is no demonstrated abnormality of the visualized soft tissue structures of the upper abdomen. RAD/Chest 1 View (Portable) IMPRESSION: There are no acute findings. Electronically Signed: Colton Cohn MD at 19:29 EST ,
[2022-09-20 19:23] LABS: Absolute Lymphocyte Count 1.82 X10^3/uL (0.83-4.51); Basophil# 0.04 X10^3/uL; Basophil% 0.5 % (0-1); Eosinophil# 0.09 X10^3/uL; Eosinophils% 1.2 % (0-5); Hematocrit 33.5 % (37-47); Hemoglobin 11.5 g/dL (12.0-15.0); Lymphocyte # 1.82 X10^3/ul (0.83-4.51); Lymphocyte % 24.2 % (19-41); Mean Corp Hgb Conc 34.3 g/dL (32-36); Mean Corpuscular Hgb 29.9 pg (27.0-32.0); Mean Platelet Vol. 10.3 fl (6.2-12.0); Monocyte# 0.56 X10^3/uL; Monocyte% 7.4 % (0-10); NRBC Flagged by Analyzer 0 % (0-5); Neutrophil # 4.97 X10^3/uL (2.7-7.7); Neutrophil % 66.2 % (47-70); Platelet Count 163 K/mm3 (150-450); RBC Distribution Width CV 12.6 % (11.6-14.6); RBC Distribution Width SD 39.7 fl (35.1-43.9); Red Blood Count 3.85 M/mm3 (4.2-5.4); White Blood Count 7.5 K/mm3 (4.4-11.0)
[2022-09-20 19:39] LABS: D-Dimer Quantitative (DVT/PE) 2.27 FEU/ug/m (0.27-0.49)
[2022-09-20 19:42] LABS: Anion Gap 9 (5-15); BUN 15 mg/dL (7-18); BUN/Creat Ratio 19.1 RATIO (10-20); Calcium,Total 8.7 mg/dL (8.5-10.1); Chloride 107 mmol/L (98-107); Creatinine, Serum 0.78 mg/dL (0.55-1.02); EST Glomerular Filtration Rate 92 mL/min (>60); Est Glom Filt Rate - Afr Amer 111 mL/min (>60); Estimated Creatinine Clearance 95.76 ml/min; Glucose 82 mg/dL (74-106); Potassium 3.7 mmol/L (3.5-5.1); Sodium Level 137 mmol/L (136-145); Troponin-I HS (w/2H Reflex) < 3 pg/mL (3.0-54.0)
--- NOTE | 2022-09-20 19:54 | CT_ITS ---
EXAM: CT ANGIOGRAPHY CHEST WITHOUT AND WITH INTRAVENOUS CONTRAST CLINICAL INDICATION: Elevated D-dimer -- Shield abdomen TECHNIQUE: Helically acquired angiography images were obtained of the chest without and with intravenous contrast. This CT exam was performed using one or more of the following dose reduction techniques: automated exposure control, adjustment of the mA and/or kV according to patient size, and/or use of iterative reconstruction technique. This report was created using [employer] report generation technology. MIP reconstructed images were created and reviewed. CONTRAST: IV 75mL [id number]-300 RADIATION DOSE: CTDIvol = 9.81 mGy, DLP = 378.50 mGy-cm COMPARISON: None. FINDINGS: PULMONARY ARTERIES: Unremarkable. Normal in caliber. No evidence of pulmonary embolism. AORTA: Unremarkable. Normal in caliber. No evidence of dissection. GREAT VESSELS OF AORTIC ARCH: Unremarkable. Normal in caliber. No evidence of dissection. LUNGS AND PLEURAL SPACES: Unremarkable. No mass. No consolidation or edema. No pleural effusion or thickening. No pneumothorax. HEART: Unremarkable. Heart size is normal. No pericardial effusion. No signs of right heart strain, ratio of right ventricle to left ventricle measures less than 1. MEDIASTINUM: Unremarkable. No mediastinal or hilar adenopathy. Esophagus is unremarkable. No hiatal hernia. THYROID: Unremarkable. No thyroid lesions. BONES/JOINTS: Unremarkable. No suspicious lytic or blastic abnormality. SPLEEN: 64 mm hypodensity in the spleen. ACR White Paper guidelines (Camila, et al. JACR 2013; 10(11):833-9) suggest no follow-up is necessary. CT/CTA Chest W/WO Contrast IMPRESSION: No acute findings in the visualized arteries of the chest. Electronically Signed: Colton Cohn MD at 20:31 EST ,
[2022-09-20 20:43] VITALS: BP 118/84; PULSE 86; RESP 20; TEMP 36.9; O2SAT 99
[2022-09-20 21:20] LABS: Reflex Troponin-HS? (from REC) Y
== END 2022-09-20 21:22 | disposition home or self-care (01) ==
PROVIDERS: Emergency Provider Emergency Medicine; PCP Family Medicine; Visit Provider Emergency Medicine
DX: O99.891 Other specified diseases and conditions complicating pregnancy (principal); O99.212 Obesity complicating pregnancy, second trimester; R07.9 Chest pain, unspecified; Z3A.19 19 weeks gestation of pregnancy
CPT/HCPCS: 71045; 71275; 80048; 84484; 85025; 85379; 93005; 99284; Q9967; A4216

== ENCOUNTER → 2022-11-09 | Outpatient (CLI) | payer OTHER, SELFPAY ==
[2022-11-09 09:41] LABS: Absolute Lymphocyte Count 1.33 X10^3/uL (0.83-4.51); Absolute Neutrophil Count 5.4 X10^3/uL (2.0-7.7); Basophil# 0.03 X10^3/uL; Basophil% 0.4 % (0-1); Eosinophil# 0.09 X10^3/uL; Eosinophils% 1.2 % (0-5); Hematocrit 37.4 % (37-47); Hemoglobin 12.8 g/dL (12.0-15.0); Lymphocyte # 1.33 X10^3/ul (0.83-4.51); Lymphocyte % 18.2 % (19-41); Mean Corp Hgb Conc 34.2 g/dL (32-36); Mean Corpuscular Hgb 31.2 pg (27.0-32.0); Mean Corpuscular Volume 91.2 fL (81-99); Mean Platelet Vol. 10.8 fl (6.2-12.0); Monocyte# 0.41 X10^3/uL; Monocyte% 5.6 % (0-10); NRBC Flagged by Analyzer 0 % (0-5); Neutrophil # 5.39 X10^3/uL (2.7-7.7); Neutrophil % 73.9 % (47-70); Platelet Count 197 K/mm3 (150-450); RBC Distribution Width CV 13.2 % (11.6-14.6); RBC Distribution Width SD 43.2 fl (35.1-43.9); White Blood Count 7.3 K/mm3 (4.4-11.0)
[2022-11-09 10:07] LABS: Glucose Challenge Gest 1H 50g 103 mg/dL (70-140)
[2022-11-09 10:38] LABS: HIV - WCH Non-Reactive (Nonreactive); Syphilis Antibodies Non-reactive
== END | disposition home or self-care (01) ==
LOC: PAVLAB 09:13
PROVIDERS: PCP Family Medicine; Referring Provider Obstetrics & Gynecology; Visit Provider Obstetrics & Gynecology
DX: Z34.90 Encounter for supervision of normal pregnancy, unspecified, unspecified trimester (principal)
CPT/HCPCS: 36415; 82950; 85025; 86703; 86780

== ENCOUNTER → 2023-01-13 | Outpatient (CLI) | payer OTHER, SELFPAY ==
[2023-01-13 17:46] LABS: Protein, Urine (Random) 78.5 mg/dL (<11.9); Protein:Creat Ratio 132 mg/g CRE (0-200)
== END | disposition home or self-care (01) ==
LOC: LABSPEC 16:50
PROVIDERS: PCP Family Medicine; Visit Provider Obstetrics & Gynecology
DX: O12.10 Gestational proteinuria, unspecified trimester (principal)
CPT/HCPCS: 82570; 84156

== ENCOUNTER → 2023-01-20 | Outpatient (CLI) | payer OTHER, SELFPAY | END | disposition home or self-care (01) | LOC: LABSPEC 16:40 | PROVIDERS: PCP Family Medicine; Referring Provider Obstetrics & Gynecology; Visit Provider Obstetrics & Gynecology | DX: Z34.90 Encounter for supervision of normal pregnancy, unspecified, unspecified trimester (principal) | CPT/HCPCS: 87081 ==

== ENCOUNTER 2023-01-30 01:30 | Inpatient (IN) | payer OTHER, SELFPAY ==
[2023-01-30] VITALS (74 sets, daily range): BP systolic 126–151; BP diastolic 66–96; PULSE 71–118; RESP 16–18; TEMP 36.2–37.1; O2SAT 92–100; BMI 30.9
[2023-01-30] MEDS: LACTATED RINGERS 500 ML 999 ML IV (02:13)
[2023-01-30 02:14] LABS: Absolute Lymphocyte Count 1.95 X10^3/uL (0.83-4.51); Absolute Neutrophil Count 5.6 X10^3/uL (2.0-7.7); Basophil# 0.07 X10^3/uL; Basophil% 0.8 % (0-1); Eosinophil# 0.06 X10^3/uL; Eosinophils% 0.7 % (0-5); Hematocrit 37.1 % (37-47); Lymphocyte # 1.95 X10^3/ul (0.83-4.51); Lymphocyte % 23.2 % (19-41); Mean Corp Hgb Conc 32.3 g/dL (32-36); Mean Corpuscular Volume 89.6 fL (81-99); Mean Platelet Vol. 12.5 fl (6.2-12.0); Monocyte# 0.65 X10^3/uL; Monocyte% 7.7 % (0-10); NRBC Flagged by Analyzer 0 % (0-5); Neutrophil # 5.62 X10^3/uL (2.7-7.7); Neutrophil % 66.8 % (47-70); Platelet Count 148 K/mm3 (150-450); RBC Distribution Width CV 12.8 % (11.6-14.6); RBC Distribution Width SD 41.8 fl (35.1-43.9); Red Blood Count 4.14 M/mm3 (4.2-5.4); White Blood Count 8.4 K/mm3 (4.4-11.0)
[2023-01-30] MEDS: Lactated Ringers 1,000 ML 200 ML IV (02:24)
[2023-01-30] MEDS: fentaNYL-bupivacaine (epidural) 100 ML BAG EPIDURAL (02:58)
[2023-01-30 03:05] LABS: Syphilis Antibodies Non-reactive
[2023-01-30] MEDS: Oxytocin 15 Units/NS 250ml 15 UNITS/250 ML IV.SOLN 83 UNITS IV (03:52)
[2023-01-30] MEDS: Oxytocin 10 UNITS/ML Vial IM (03:55)
--- NOTE | 2023-01-30 04:05 | HP.PCM.OB_ITS ---
HPI - General General Date of Admission: 01/30/23 HPI Narrative ED PORTILLO, is a 32 F who presents IAL delivers quick within 4 hours. Maternal Data Information LILLY Calculator Estimated Delivery Date Method Current WG Current Estimate 02/11/23 LMP (Certain) 38w 2d Other Estimates 02/08/23 Ultrasound #1 38w 5d PFSH PFSH Medical History Anxiety Melanoma Home Medications prenat.vits,monica,[id number] 1 tab PO DAILY vitamin 06/17/19 [History Last Taken 02/04/20 08:00] Allergy/AdvReac Type Severity Reaction Status Date / Time No Known Allergies Allergy Verified 01/27/23 10:55 Family History Father Diabetes Colon cancer Surgical History s/p right ear surgery Social History adopted: No household members: spouse and children number of children: 1 current occupational status: employed current occupation: [employer] pets and animals: Yes pets and animals: dog(s) history of recent travel: No sexually active: Yes Smoking Status: Never smoker alcohol intake: former details: occasionally- not while substance use type: does not use well-balanced diet: daily or most days caffeine: No eating out: rarely or never during the past year weight has: remained stable what type of physical activity do you participate in: walking frequency: 1-2 times per week duration: 15-30 minutes/day alba/christianity: Hinduism seatbelt use: always do you feel safe at home: Yes additional social history: [employer] 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 Date Name GA/Weeks Outcome Route Bth Weight Infant Gen Labor Lgth Anesthesia Del Locatn Provider FOB 02/05/20 Chay 41 live - full term Male none [facility] Visit Details Expected Delivery Route/Plan Labor Preferences- CB/BF classes: no labor support person: Wilian labor intervention preferences: [] pain management options preferred: epidural cut cord/dad catch: yes, could love to catch again! : yes PP control planned: discussed discussed possible routes of delivery and associated risks: [] special requests: [] Plans Covid status: vaccinated, not boosted Flu vaccine: given Tdap vaccine: given Rhogam: NA LARC form signed: yes Problem list reviewed and updated with the most current plan of care details and appropriate orders placed. Relevant counseling for the gestational age provided. Continue routine care and follow up unless otherwise noted in visit notes/problem list details OB Flowsheet Initial Weight: Not Recorded Date -?-?-?-?-?-?-?-?-?-?-?-?- EGA Weight BP Urine Prot -?-?-?-?-?-?--?-?-?-?-?-?- Glucose FHR FuHt Pres Dilation -?-?-?-?-?-?-?-?-?-?-?-?- Effaced St Visit Note 07/12/22 -?-?-?-?-?-?-?-?-?-?-?-?- 9w 3d 176 lb 4 oz 120/70 -?-?-?-?-?-?-?-?-?-?-?-?- 175 -?-?-?-?-?-?-?-?-?-?-?-?- JV- CRL consiste nt with LMP. declines genetics. 08/12/22 -?-?-?-?-?-?-?-?-?-?-?-?- 13w 6d 172 lb 120/80 Negative -?-?-?-?-?-?-?-?-?-?-?-?- Negative 160 -?-?-?-?-?-?-?-?-?-?-?-?- SM- no vb crampi ng SM- had small episode spotti ng x 1, no crmaping 09/09/22 -?-?-?-?-?-?-?-?-?-?-?-?- 17w 6d 175 lb 6 oz 123/84 Nega tive -?-?-?-?-?-?-?-?-?-?-?-?- Negative 178 158 -?-?-?-?-?-?-?-?-?-?-?-?- JV- no lof, vagi nal bleeding, or cramping. normal labs reviewed 10/21/22 -?-?-?-?-?-?-?-?-?-?-?-?- 23w 6d 178 lb 4 oz 135/82 Nega tive -?-?-?-?-?-?-?-?-?-?-?-?- Negative 150 -?-?-?-?-?-?-?-?-?-?-?-?- JV- no lof, vagi nal bleeding, or dec fm. glucola drink ordered. no complaints. 11/09/22 -?-?-?-?-?-?-?-?-?-?-?-?- 26w 4d 179 lb 130/80 Negative -?-?-?-?-?-?-?-?-?-?-?-?- Negative 154 26 -?-?-?-?-?-?-?-?-?-?-?-?- MH-No Vb, LOF. G ood FM. 28 wk labs. [facility] 11/25/22 -?-?-?-?-?-?-?-?-?-?-?-?- 28w 6d 179 lb 116/83 -?-?-?-?-?-?-?-?-?-?-?-?- 145 29 -?-?-?-?-?-?-?-?-?-?-?-?- SM- no vb lof go od fm no regular ctx 12/09/22 -?-?-?-?-?-?-?-?-?-?-?-?- 30w 6d 182 lb 149/82 121/83 Negative -?-?-?-?-?-?-?-?-?-?-?-?- Negative 147 30 -?-?-?-?-?-?-?-?-?-?-?-?- JV-no lof, vagin al bleeding, or dec fm. tdap today. 12/23/22 -?-?-?-?-?-?-?-?-?-?-?-?- 32w 6d 181 lb 8 oz 122/74 Nega tive -?-?-?-?-?-?-?-?-?-?-?-?- Negative 137 32 -?-?-?-?-?-?-?-?-?-?-?-?- LC- no lof/vb/ct x. good fm. no concerns. reviewed hx of elevated d-dimer without evidence of pe/dvt. reviewed s/sx of dvt. 01/06/23 -?-?-?-?-?-?-?-?-?-?-?-?- 34w 6d 181 lb 4 oz 124/86 Nega tive -?-?-?-?-?-?-?-?-?-?--?-?- Negative 132 33 -?-?-?-?-?-?-?-?-?-?-?-?- JV- no lof, vagi nal bleeding, or dec fm. no complaints today. normal D- dimer 01/13/23 -?-?-?-?-?-?-?-?-?-?-?-?- 35w 6d 183 lb 124/85 1+ -?-?-?-?-?-?-?-?-?-?-?-?- Negative 145 35 Cephalic -?-?-?-?-?-?-?-?-?-?-?-?- JV- +1 protein i n urine but likely dehydration. will send pr:cr and call if issues. vtx on bedside scan today. 01/20/23 -?-?-?-?-?-?-?-?-?-?-?-?- 36w 6d 182 lb 6 oz 133/86 Nega tive -?-?-?-?-?-?-?-?-?-?-?-?- Negative 120 37 Cephalic 1 -?-?-?-?-?-?-?-?-?-?-?-?- 70 -3 JV- no com plaints today. GBS collectd. 01/27/23 -?-?-?-?-?-?-?--?-?-?-?-?- 37w 6d 184 lb 4 oz 125/86 1+ -?-?-?-?-?-?-?-?-?-?-?-?- Negative 135 35 Cephalic 2 -?-?-?-?-?-?-?-?-?-?-?-?- 70 -1 JV- station dropped significantly making FH look lower. no lof ,vaginal bleeding, or dec fm. 01/30/23 -?-?-?-?-?-?-?-?-?-?-?-?- 38w 2d 186 lb 134/89 140/78 140/90 140/85 129/79 135/83 130/96 133/66 136/82 135/84 132/72 129/75 126/75 131/82 134/87 134/79 135/78 -?-?-?-?-?-?-?-?-?-?-?-?- -?-?-?-?-?-?-?-?-?-?-?-?- NST FHR Rate Baby A Baseline: 140 Variability:: Moderate Accelerations:: 15 x 15 Decelerations:: None NST Reactive:: Yes FHR Category:: Category I Uterine Activity:: q3-5 ROS Constitutional Constitutional: Reports systems reviewed and no addt'l complaints, except as documented ENT HEENT: Reports systems reviewed and no addt'l complaints, except as documented Cardiovascular Cardiovascular: Reports systems reviewed and no addt'l complaints, except as documented Respiratory/Chest Respiratory/Chest: Reports systems reviewed and no addt'l complaints, except as documented Gastrointestinal Gastrointestinal: Reports systems reviewed and no addt'l complaints, except as documented and nausea; Denies abdominal pain Genitourinary Genitourinary: Reports systems reviewed and no addt'l complaints, except as documented, contractions Details: present and frequency (regular ) and movement Details: present Musculoskeletal Musculoskeletal: Reports systems reviewed and no addt'l complaints, except as documented Integumentary Integumentary: Reports as per HPI Neurologic Neurologic: Reports systems reviewed and no addt'l complaints, except as documented Endocrine Endocrinology: Reports systems reviewed and no addt'l complaints, except as documented Vital Signs Vital Signs Vital Signs: 01/30/23 01:09 01/30/23 01:09 01/30/23 01:09 Temperature Temperature Source Pulse Rate 102 H Blood Pressure 134/89 H BP Systolic 134 BP Diastolic 89 Pulse Ox 99 01/30/23 01:09 01/30/23 01:13 01/30/23 01:13 Temperature Temperature Source Pulse Rate 87 101 H Blood Pressure BP Systolic BP Diastolic Pulse Ox 99 01/30/23 01:09 01/30/23 01:09 01/30/23 01:09 Temperature 98.2 F Temperature Source Tympanic Pulse Rate Blood Pressure BP Systolic BP Diastolic Pulse Ox 99 01/30/23 01:19 01/30/23 01:19 01/30/23 02:23 Temperature Temperature Source Pulse Rate 85 101 H Blood Pressure BP Systolic BP Diastolic Pulse Ox 99 01/30/23 02:23 01/30/23 02:28 01/30/23 02:28 Temperature Temperature Source Pulse Rate 91 Blood Pressure BP Systolic BP Diastolic Pulse Ox 100 100 01/30/23 02:30 01/30/23 02:30 01/30/23 02:32 Temperature Temperature Source Pulse Rate 74 Blood Pressure 140/78 H 140/90 H BP Systolic 140 140 BP Diastolic 78 90 Pulse Ox 01/30/23 02:33 01/30/23 02:33 01/30/23 02:37 Temperature Temperature Source Pulse Rate 99 Blood Pressure 140/85 H BP Systolic 140 BP Diastolic 85 Pulse Ox 100 01/30/23 02:38 01/30/23 02:38 01/30/23 02:39 Temperature Temperature Source Pulse Rate 77 Blood Pressure 129/79 H BP Systolic 129 BP Diastolic 79 Pulse Ox 98 01/30/23 02:39 01/30/23 02:43 01/30/23 02:43 Temperature Temperature Source Pulse Rate 76 99 Blood Pressure BP Systolic BP Diastolic Pulse Ox 92 01/30/23 02:43 01/30/23 02:43 01/30/23 02:48 Temperature Temperature Source Pulse Rate 94 87 Blood Pressure 135/83 H BP Systolic 135 BP Diastolic 83 Pulse Ox 01/30/23 02:48 01/30/23 02:52 01/30/23 02:53 Temperature Temperature Source Pulse Rate 84 Blood Pressure 130/96 H BP Systolic 130 BP Diastolic 96 Pulse Ox 99 01/30/23 02:53 01/30/23 02:58 01/30/23 02:58 Temperature Temperature Source Pulse Rate 88 Blood Pressure 133/66 H BP Systolic 133 BP Diastolic 66 Pulse Ox 96 01/30/23 02:59 01/30/23 02:59 01/30/23 02:59 Temperature Temperature Source Tympanic Pulse Rate 84 Blood Pressure BP Systolic BP Diastolic Pulse Ox 100 01/30/23 02:59 01/30/23 02:59 01/30/23 03:04 Temperature 97.1 F L Temperature Source Pulse Rate Blood Pressure 136/82 H BP Systolic 136 BP Diastolic 82 Pulse Ox 100 01/30/23 03:04 01/30/23 03:04 01/30/23 03:07 Temperature Temperature Source Pulse Rate 97 Blood Pressure 135/84 H BP Systolic 135 BP Diastolic 84 Pulse Ox 100 01/30/23 03:07 01/30/23 03:09 01/30/23 03:09 Temperature Temperature Source Pulse Rate 95 97 Blood Pressure BP Systolic BP Diastolic Pulse Ox 99 01/30/23 03:12 01/30/23 03:12 01/30/23 03:13 Temperature Temperature Source Pulse Rate 115 H Blood Pressure 132/72 H 129/75 H BP Systolic 132 129 BP Diastolic 72 75 Pulse Ox 01/30/23 03:13 01/30/23 03:14 01/30/23 03:14 Temperature Temperature Source Pulse Rate 90 97 Blood Pressure BP Systolic BP Diastolic Pulse Ox 99 01/30/23 03:17 01/30/23 03:17 01/30/23 03:19 Temperature Temperature Source Pulse Rate 84 90 Blood Pressure 126/75 H BP Systolic 126 BP Diastolic 75 Pulse Ox 01/30/23 03:19 01/30/23 03:19 01/30/23 03:19 Temperature Temperature Source Pulse Rate 92 Blood Pressure BP Systolic BP Diastolic Pulse Ox 96 94 01/30/23 03:23 01/30/23 03:24 01/30/23 03:24 Temperature Temperature Source Pulse Rate 118 H Blood Pressure 131/82 H BP Systolic 131 BP Diastolic 82 Pulse Ox 99 01/30/23 03:27 01/30/23 03:27 01/30/23 03:29 Temperature Temperature Source Pulse Rate 86 93 Blood Pressure 134/87 H BP Systolic 134 BP Diastolic 87 Pulse Ox 01/30/23 03:29 01/30/23 03:33 01/30/23 03:33 Temperature Temperature Source Pulse Rate 83 Blood Pressure 134/79 H BP Systolic 134 BP Diastolic 79 Pulse Ox 100 01/30/23 03:34 01/30/23 03:34 01/30/23 03:57 Temperature Temperature Source Pulse Rate 107 H Blood Pressure 135/78 H BP Systolic 135 BP Diastolic 78 Pulse Ox 99 01/30/23 03:57 01/30/23 04:01 01/30/23 04:01 Temperature Temperature Source Pulse Rate 96 92 Blood Pressure BP Systolic BP Diastolic Pulse Ox 100 01/30/23 03:57 Temperature 97.6 F L Temperature Source Pulse Rate Blood Pressure BP Systolic BP Diastolic Pulse Ox Weight Weight: 186 lb Body Mass Index (BMI) 30.9 Physical Exam Const alert, oriented x3 and healthy appearing Constitutional Narrative: uncomfortable with contractions HEENT normocephalic and moist oral mucous membranes Head and Scalp: atraumatic Neck full ROM, no lymphadenopathy, supple and thyroid normal General: trachea midline Thyroid: thyroid normal Lymph Lymphatic: no lymphadenopathy noted Chest inspection of chest normal Resp normal respiratory effort Cardio regular rate GI normal to inspection, nondistended, normoactive bowel sounds, soft to palpation and non-tender Inspection: gravid external exam normal Bimanual Exam - Vag & Uterus: uterus non-tender Manual OB Exam: estimated gestational size appropriate, presentation cephalic, dilated, effaced and station Extremity normal to inspection General Extremity: Negative for edema Skin no rashes or lesions noted Neuro deep tendon reflexes 2+ bilaterally Motor Exam: strength 5/5 throughout and clonus absent Psych mental status grossly normal Labs Labs Labs: Blood Type O POSITIVE Antibody Screen NEGATIVE Hct 37.1 % (37-47) Hgb 12.0 g/dL (12.0-15.0) Obstetrics US Syphilis Total Ab Non-reactive Rubella IgG Antibody Reactive (Nonreactive) Hep Bs Antigen Non-Reactive (Nonreactive) Chlamydia DNA (LIBBY) Negative (Negative) Neisseria gonorrhoeae DNA (LIBBY) Negative (Negative) HIV 1&2 Antibody Non-Reactive (Nonreactive) Glucose 1 Hr 50 gm 103 mg/dL (70-140) Rhogam given: No Miscellaneous Test Assessment & Plan (1) : QUALIFIERS: Weeks of gestation: 37 weeks Qualified Code(s): Z3A.37 - 37 weeks gestation of COMMENT: GBS neg, anatomy nl, declined NIPT & Carrier testing (2) Supervision of normal : COMMENT: [id number], LILLY 02/11/23, ZAHRA Cartwright, Spouse Wilian (3) Anxiety: COMMENT: no meds, counseling encouraged; stable (4) Active labor at term: PLAN: Plan Patient presents IAL, plan expectant management for , pitocin/AROM PRN if needed. Pain management: plans epidural. GBS neg. Management of any complications: none I have reviewed the PFSH and made any clinically relevant updates.
--- NOTE | 2023-01-30 04:05 | OP.PCM_ITS ---
Assessment & Plan (1) Anxiety: COMMENT: no meds, counseling encouraged; stable (2) Supervision of normal : COMMENT: [id number], LILLY 02/11/23, ZAHRA Cartwright, Spouse Wilian (3) : QUALIFIERS: Weeks of gestation: 37 weeks Qualified Code(s): Z3A.37 - 37 weeks gestation of COMMENT: GBS neg, anatomy nl, declined NIPT & Carrier testing (4) Active labor at term: (5) Vaginal delivery: COMMENT: SM IAL girl Tino Maternal Data Information LILLY Calculator 2 Estimated Delivery Date Method Current WG Current Estimate 02/11/23 LMP (Certain) 38w 2d Other Estimates 02/08/23 Ultrasound #1 38w 5d Vaginal Delivery Operative Information Date of Procedure: 01/30/23 Pre-Operative Diagnosis: see a/p diagnoses Post-Operative Diagnosis: same Surgery / Procedure Performed: Spontaneous Vaginal Delivery Type of Anesthesia: Epidural Special Medications: none Estimated Blood Loss: 200 Fluids Replaced: crystalloid Findings Description of Procedure: Patient began pushing and delivered the head in the KANDI presentation. The head was delivered atraumatically . The anterior and posterior shoulders delivered without complication followed by the rest of the and the infant was placed on the maternal abdomen. Delayed cord clamping was employed for approximately 60 seconds. Cord was clamped and cut and gentle traction was applied to the cord and the placenta delivered spontaneously immediately following it was noted to be intact with three-vessel cord. The perineum and vagina were inspected and noted to have a first degree perineal laceration which was repaired in the usual fashion with 3-0 vicryl rapide.. EBL was 200 cc. Patient and tolerated delivery well. Amniotic Fluid Description: Clear Placental Delivery Description: Spontaneous Placenta Disposition: [facility] Cord Vessel Description: 3 Vessels Cord Entanglement: None Delayed Cord Clamping: Yes Post Vaginal Delivery Medications Given After Delivery: IV Pitocin Episiotomy Description: None Complication Complications: None Procedures Urinary/Genital [id number]: [id number] Vaginal Delivery global pkg
--- NOTE | 2023-01-30 04:06 | DCINST_ITS ---
Discharge Instructions Diet Discharge Diet: No restrictions Activity Discharge Activity: Return to Normal Activity, May Drive, May Shower and May Take a Tub Bath (in 4 weeks) May resume sexual activity in: 6-8 weeks (after seen by OB provider) Weight Bearing Status: Full weight bearing Lifting Restrictions: none Dressing / Incision Call your doctor if you observe: Fever of 101 or Higher, Inability to urinate, Using more than 1 pad per hour (for more than 2 hours in a row or more), Shortness of breath, Dizziness, Chest pain and - (headache not controlled with tylenol, change in vision) Follow Up Care When: in 6 weeks for visit, call the office to make the appointment. If you had elevated blood pressures call the office to be seen within 1 week. Test Results: Test results from this visit will be discussed in further detail at your follow- up appointment, if applicable. Discharge Plan Admission Admit Date/Time: 01/30/23 01:30 Attending Provider: Chari Zheng Primary Care Provider: Socrates Devlin Discharge Orders/Prescriptions Prescriptions: No Action prenat.vits,monica,[id number] Tablet 1 tab PO DAILY Referrals / Follow Up: Socrates Devlin MD [Primary Care Provider] - Disposition Disposition (needs filled in before D/C Order can be placed): Home, Self Care
[2023-01-31 04:13] VITALS: BP 121/81; PULSE 76; RESP 14; TEMP 36.1
[2023-01-31 07:42] VITALS: BP 141/81; PULSE 86; RESP 16; TEMP 36.6; O2SAT 100
[2023-01-31 07:44] VITALS: BP 141/81; PULSE 83
[2023-01-31 07:55] VITALS: BP 122/80; PULSE 88
[2023-01-31 07:56] VITALS: BP 122/80
--- NOTE | 2023-01-31 08:04 | PCM.PN.OB ---
Subjective Subjective Patient doing well without complaints. Tolerating PO. Ambulating and voiding without difficulty. Feeding well. Denies chest pain, shortness of breath, calf pain/swelling, fevers, chills, lightheadedness. Objective Data Objective Data Vital Signs: Vital Signs Temp Pulse Resp BP Pulse Ox O2 Del Method 97.8 F 88 16 122/80 H 100 Room Air 01/31/23 07:42 01/31/23 07:55 01/31/23 07:42 01/31/23 07:56 01/31/23 07:42 01/31/23 07:42 Oxygen Delivery Method Room Air Weight: 186 lb Body Mass Index (BMI) 30.9 Intake & Output: Intake and Output for Last 24 Hours 01/29/23 01/30/23 01/31/23 23:59 23:59 23:59 Intake Total 713.15 / 713.15 Output Total 1200 / 1200 Balance -486.85 / -486.85 Lab / Micro Data Attestation: I reviewed the patient's lab results. Result Diagrams: 01/30/23 02:05 ROS Constitutional Constitutional: Reports systems reviewed and no addt'l complaints, except as documented Cardiovascular Cardiovascular: Reports systems reviewed and no addt'l complaints, except as documented Respiratory/Chest Respiratory/Chest: Reports systems reviewed and no addt'l complaints, except as documented Gastrointestinal Gastrointestinal: Reports systems reviewed and no addt'l complaints, except as documented; Denies anorexia, constipation, diarrhea, heartburn or nausea Genitourinary Genitourinary: Reports systems reviewed and no addt'l complaints, except as documented; Denies burning urination or difficulty urinating Musculoskeletal Musculoskeletal: Reports systems reviewed and no addt'l complaints, except as documented Neurologic Neurologic: Reports systems reviewed and no addt'l complaints, except as documented Psychiatric Psychiatric: Reports systems reviewed and no addt'l complaints, except as documented; Denies anxiety or depression Physical Exam Const alert, oriented x3 and no apparent distress General Appearance: cooperative and comfortable Neck full ROM Chest inspection of chest normal Resp normal respiratory effort and normal air movement Effort and Inspection: able to speak in complete sentences GI normal to inspection, nondistended, normoactive bowel sounds, soft to palpation and non-tender external exam normal Extremity normal to inspection and full ROM Psych mental status grossly normal, thought process normal, cooperative and affect normal Assessment & Plan (1) Vaginal delivery: COMMENT: SM IAL girl Jiménez PLAN: s/p PPD # 1 1. routine post delivery care 2. breast feeding- support given 3. rh positive 4. rubella immune
--- NOTE | 2023-01-31 08:09 | DCINST_ITS ---
Discharge Instructions Diet Discharge Diet: No restrictions Activity May resume sexual activity in: 6-8 weeks (after seen by OB provider) Weight Bearing Status: Full weight bearing Dressing / Incision Call your doctor if you observe: Fever of 101 or Higher, Inability to urinate, Using more than 1 pad per hour (for more than 2 hours in a row or more), Shortness of breath, Dizziness, Chest pain and - (headache not controlled with tylenol, change in vision) Follow Up Care Test Results: Test results from this visit will be discussed in further detail at your follow- up appointment, if applicable. Discharge Plan Admission Admit Date/Time: 01/30/23 01:30 Primary Reason for Your Visit: Attending Provider: Chari Zheng Primary Care Provider: Socrates Devlin Instructions Patient Instructions: After a Vaginal Discharge Orders/Prescriptions Prescriptions: No Action prenat.vits,monica,[id number] Tablet 1 tab PO DAILY Referrals / Follow Up: Socrates Devlin MD [Primary Care Provider] - Disposition Disposition (needs filled in before D/C Order can be placed): Home, Self Care
== END 2023-01-31 11:35 | disposition home or self-care (01) | DRG 807 ==
LOC: WPOUT 01:31 → WP 01:31
PROVIDERS: Admitting Provider Obstetrics & Gynecology; PCP Family Medicine; Referring Provider Obstetrics & Gynecology; Visit Provider Obstetrics & Gynecology
DX: O99.344 Other mental disorders complicating childbirth (principal); Z37.0 Single live birth; F41.9 Anxiety disorder, unspecified; O70.0 First degree perineal laceration during delivery; Z3A.37 37 weeks gestation of pregnancy
CPT/HCPCS: 59025; 59050; 85025; 86780; 86850; 86900; 86901; 99221; J7120; G0378

== ENCOUNTER → 2023-03-20 | Outpatient (CLI) | payer OTHER, SELFPAY ==
[2023-03-23 07:08] LABS: Chlamydia By Nucleic Acid AMP Negative (Negative); Gonococcus By Nucleic Acid AMP Negative (Negative)
== END | disposition home or self-care (01) ==
LOC: LABSPEC 16:56
PROVIDERS: PCP Family Medicine; Referring Provider Registered Nurse; Visit Provider Registered Nurse
DX: Z11.51 Encounter for screening for human papillomavirus (HPV) (principal)
CPT/HCPCS: 87491; 87591

== ENCOUNTER → 2023-03-27 | Outpatient (CLI) | payer OTHER, SELFPAY ==
--- NOTE | 2023-03-27 09:20 | US_ITS ---
STUDY: ULTRASOUND OF THE FEMALE PELVIS - COMPLETE REASON FOR EXAM: Female, 32 years old. IUD placement -- POST 8 WEEKS -- LMP UNKNOWN LMP: Unknown. TECHNIQUE: Transvaginal TECHNICAL QUALITY: Adequate. COMPARISON: None. FINDINGS: The uterus is anteverted and is in a midline position. The uterus measures 9 cm x 6.1 cm x 3.6 cm. Normal uterine cervix. The endometrium measures 5 mm in thickness, and is hyperechoic. There is no demonstrated endometrial mass. There is no demonstrated myometrial mass. I.U.D. - The patient does have an I.U.D. . The IUD is in the fundal portion of uterus. The right ovary is visualized. The right ovary measures 3.4 cm x 2.9 cm x 1.6 cm. There is no right ovarian cyst or ovarian mass. There is no visualized right adnexal mass or complex lesion. There is normal arterial and normal venous vascularity. The left ovary is visualized. The left ovary measures 2.8 cm x 2 cm x 1.6 cm. There is no left ovarian cyst or ovarian mass. There is no visualized left adnexal mass or complex lesion. There is normal arterial and normal venous vascularity. There is no fluid in the cul-de-sac. US/Transvaginal Non- IMPRESSION: The IUD is in the fundal portion of the uterus. Electronically Signed: David Gilman MD at 15:04 EDT ,
== END | disposition home or self-care (01) ==
PROVIDERS: PCP Family Medicine; Referring Provider Registered Nurse; Visit Provider Registered Nurse
DX: Z30.431 Encounter for routine checking of intrauterine contraceptive device (principal)
CPT/HCPCS: 76830

== ENCOUNTER 2024-09-01 09:40 | Emergency (ER) | payer OTHER, SELFPAY ==
[2024-09-01 09:41] VITALS: BP 131/82; PULSE 109; RESP 20; TEMP 36.2; O2SAT 100; BMI 27.9
--- NOTE | 2024-09-01 10:31 | EDS_ITS ---
HPI History of Present Illness Chief Complaint: Cellulitis Narrative Narrative: Chief complaint and HPI: Right foot cellulitis. 33-year-old female presents for evaluation of right foot cellulitis. Patient states that she went to [place] couple days ago and noticed redness at the web of the right first and second digit. She states the redness progressed and was seen by urgent care. She was placed on Bactrim for cellulitis. Patient denies any injury to her foot or insect bite that she knows of. She states the redness is progressing. She endorses mild pain in the area of the redness. She denies any fever, chills, abdominal pain, nausea, vomiting. Review of systems: See HPI Medications: As listed on the chart Allergies: As listed on the chart PFSH: Per chart Vital signs: As listed on the chart. Reviewed. Physical exam: Gen: A&O x3, NAD Head: Normocephalic, atraumatic Eyes: No sclera icterus, conjunctiva clear ENT: Moist mucous membranes CV: Regular rate and rhythm, no murmurs Resp: Lungs CTA BL, no w/r/c Musc: Full ROM, no deformity, patient has erythema and warmth at the right webspace of the first and second digit, there is a small area of ecchymosis in the center. Mild swelling to the first and second digit. No crepitus. No bullae. No skin sloughing. Mildly tender to palpation. Full range of motion of the foot, toes, ankle. Neuro: Alert, oriented, grossly intact, sensation intact Psych: Cooperative, appropriate mood and affect [facility] Medical History Vaginal delivery Melanoma Anxiety Home Medications ?Medication ?Instructions ?Recorded ?Last Taken ?Type levonorgestrel 21 mcg/24 hr (up to 1 device intrauterine ONCE 04/05/24 Unknown History 8 years) 52 mg intrauterine device (Mirena) doxycycline hyclate 100 mg capsule 100 mg PO BID #10 caps 09/01/24 Unknown Rx Allergy/AdvReac Type Severity Reaction Status Date / Time No Known Allergies Allergy Verified 04/05/24 09:39 Family History Father Diabetes Colon cancer Surgical History s/p right ear surgery Social History (Updated 04/05/24 @ 09:40 by Genesis Valenzuela) adopted: No household members: spouse and children number of children: 2 current occupational status: employed current occupation: [employer] pets and animals: Yes pets and animals: dog(s) history of recent travel: No sexually active: Yes Smoking Status: Never smoker alcohol intake: former details: occasionally- not while substance use type: does not use well-balanced diet: daily or most days caffeine: No eating out: rarely or never during the past year weight has: remained stable what type of physical activity do you participate in: none alba/sikh: [employer] seatbelt use: always do you feel safe at home: Yes additional social history: [employer] 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 See physical exam findings. Findings are concerning for cellulitis however cannot rule out early Lyme disease or spider bite. Given that patient is tender in this area will obtain x-ray of the foot. [place] ordered for pain. X-ray of the right foot was interpreted by me, EM physician no fracture or dislocation. Patient does have swelling of the first and second digit which is seen also on physical exam. Patient has no systemic symptoms at this time. Will broaden the patient's antibiotic to doxycycline. She was placed on a 10-day course. Patient was told to monitor for worsening symptoms such as worsening swelling, worsening spreading, fever, chills, abdominal pain, nausea vomiting, worsening pain in the foot. She was told to return back to the ED if any of these occur or she receives no improvement. She confirmed understanding the plan. Follow- up with PCP. Impression: 1. Right foot cellulitis Radiography Diagnostic Testing: Clinical Impression(s) from Imaging Studies Foot X-Ray 09/01/24 10:35 IMPRESSION: No acute osseous abnormality identified in the right foot. Soft tissue swelling of the first and second toes. Electronically Signed: Beth Reese MD at 11:02 EDT , Discharge Plan Triage Chief Complaint: Cellulitis ED Provider: Nader Monk Dx/Rx/DC Orders Clinical Impression: Cellulitis of foot, right Instructions: Cellulitis Dc Prescriptions: New doxycycline hyclate 100 mg capsule 100 mg PO BID Qty: 10 0RF No Action Mirena 21 mcg/24 hr (8 yrs) 52 mg intrauterine device 1 device intrauterine ONCE Rx Instructions: as a single dose Primary Care Provider: Socrates Devlin Referrals: Socrates Devlin MD [Primary Care Provider] - 3-5 Days Activity Restrictions/Additional Instructions: Return back to the ED if swelling or redness worsens, pain worsens, you develop symptoms such as fever, chills, nausea, vomiting. Print Language: [place]an Disposition Disposition: Home, Self Care Discharge Date/Time: 09/01/24 12:03
--- NOTE | 2024-09-01 10:35 | RAD_ITS ---
HISTORY: Pain. TECHNIQUE: XR Foot Min 3 Views. COMPARISON: None. FINDINGS: BONES : No acute fracture identified. Mineralization unremarkable. JOINTS: No dislocation. Joint spaces maintained. SOFT TISSUES: Soft tissue swelling of the first and second toes. No radiopaque foreign body identified. RAD/Foot min 3 Views IMPRESSION: No acute osseous abnormality identified in the right foot. Soft tissue swelling of the first and second toes. Electronically Signed: Beth Reese MD at 11:02 EDT ,
== END 2024-09-01 12:03 | disposition home or self-care (01) ==
PROVIDERS: Emergency Provider Surgery; PCP Family Medicine; Visit Provider Surgery
DX: L03.115 Cellulitis of right lower limb (principal); S80.11XA Contusion of right lower leg, initial encounter; X58.XXXA Exposure to other specified factors, initial encounter; Z97.5 Presence of (intrauterine) contraceptive device; Z85.820 Personal history of malignant melanoma of skin
CPT/HCPCS: 73630; 99282

== ENCOUNTER → 2025-04-21 | Outpatient (CLI) | payer OTHER, SELFPAY ==
[2025-04-22 22:07] LABS: HPV APTIMA, High Risk Negative (Negative)
== END | disposition home or self-care (01) ==
LOC: LABSPEC 11:51
PROVIDERS: PCP Family Medicine; Referring Provider Nurse Practitioner Women's Health; Visit Provider Nurse Practitioner Women's Health
DX: Z12.4 Encounter for screening for malignant neoplasm of cervix (principal)
CPT/HCPCS: 87624; 88175; G0145

== ENCOUNTER → 2025-05-27 | Outpatient (CLI) | payer OTHER, SELFPAY ==
--- OUTSIDE RECORDS SUMMARY | 2025-05-27 21:20 | XMS RPT_ITS | CCD ---
Author Organization [facility] CliniSyaz Care Team Providers Care Supervisor Webbing Name Role Phone Dr. Chavez Devlin Primary Care Provider [place], Dr. Crowell Referring Provider Dr. Akiko Ruelas Attending Provider [phone]) Dr. Chari Mg Attending Provider [phone] CHARI MG [facility] MELVI GUADARRAMA Attending Unavailable CHAVEZ DEVLIN Primary Care Unavailable Dr. Chavez Devlin Primary Care Provider [place], Dr. Crowell Referring Provider Dr. Chari Mg Attending Provider [phone] Dr. Akiko Ruelas Attending Provider 1(3 30) SURINDER Goodson NP Attending Provider [phone] [phone] [place], Dr. Crowell Primary Care Provider [place], Dr. Crowell Referring Provider Dr. Akiko Ruelas Attending Provider 1(3 30) Dr. Chari Mg Attending Provider [phone] [phone] ROBERT Jiméenz Attending Provider [place], Dr. Crowell Primary Care Provider [place], Dr. Crowell Referring Provider Dr. Akiko Ruelas Attending Provider [phone] SURINDER Goodson NP Attending Provider [phone] [phone] Dr. Chari Mg Attending Provider [phone] ROBERT Jiménez Attending Provider [phone] Dr. Chari Mg Admit Provider [phone] Chari Mg Referring Provider [phone] [phone] Dr. Chari Mg Other Provider [phone] ROBERT Beckman Attending Provider Chavez Devlin MD Primary Care Provider CHAVEZ DEVLIN Primary Care Unavailable Dr. Chavez Devlin MD Primary Care Provider Dr. Chavez Devlin MD Referring Provider Marce EDWARDS, Dr. Marcelino Attending Provider [phone] Kellee TRAVEL REGISTERED NURSE PACU-C, Avelina Attending Provider Kellee TRAVEL REGISTERED NURSE PACU-C, Avelina Referring Provider Kellee TRAVEL REGISTERED NURSE PACU, Avelina Attending Unavailable [place] Referring Unavailable [facility] Chavez Primary Care Unavailable Kellee TRAVEL REGISTERED NURSE PACU, Avelina Attending Unavailable Kellee TRAVEL REGISTERED NURSE PACU, Avelina Referring Unavailable [place] Primary Care Unavailable [facility] Chavez Primary Care Unavailable Nader Monk Attending Unavailabl e Chari Mg Attending Unavailable [facility] Referring Unavailable [facility] Primary Care Unavailable Medications Current Medications Medication Drug Class(es) Dates Sig (Normalized) Sig (Original) docosahexaenoic acid 200 mg oral capsule (1 source) Start: 05-27-2025 Docosahexaenoic Acid ( Dha) 200 mg capsule Active mg PO May 27, 2025 12:00am Kuna (Nk) (2 sources) Start: 02-28-2025 Kuna (Nk) Active February 28, 2025 12:00am Prenat.Vits,Monica,Min-I vamshi-Folic (6 sources) Start: 06-17-2019 take 1 tablet by mouth once daily Prenat.Vits,Monica,Min- Iron-Folic Active 1 TABLET PO DAILY June 16, 2019 11:00pm Start: 06-17-2019 take 1 tablet by cande th once daily Prenat.Vits,Monica,Mim-Ajhu-Dcscl Active 1 TABLET PO DAILY June 17, 2019 12:00am sulfamethoxazole 800 mg / trimethoprim 160 mg oral tablet (11 sources) Dihydrofolate Reductase Inhibitor Antibacterial, Sulfonamide Antimicrobial Start: 08-29-2024 End: 09-05-2024 take 1 tablet by mouth twice daily sulfamethoxazole-trimethoprim (BACTRIM DS) 800-160 mg per tablet Take 1 tablet by mouth two times a day for 7 days. 14 tablet 08/29/2024 09/05/2024 Active Start: 08-11-2021 End: 08-14-2021 Sulfamethoxazole-Trimethopri m (Bactrim Ds) 800-160 mg tablet Discontinued 1 {tbl} PO TWICE A DAY 6 3 0 August 11, 2021 12:00am August 13, 2021 12:00am August 14, 2021 12:01am Completed/Discontinued Medications Medication Drug Class(es) Dates Sig (Normalized) Sig (Original) doxycycline hyclate 100 mg oral capsule (3 sources) Tetracycline-cla ss Drug Start: 09-01-2024 End: 02-28-2025 take 1 capsule by mouth twice daily Doxycycline Hyclate 100 mg capsule Discontinued 100 mg PO TWICE A DAY 10 September 01, 2024 12:00am February 28, 2025 9:15am estradiol 0.1 mg/ml vaginal cream (12 sources) Estrogen Start: 03-16-2023 End: 04-05-2024 Estradiol (Estrace) 0.01 % (0.1 mg/gram) cream Discontinued 0 VAGINAL .COMPLEX 42.5 3 March 16, 2023 12:00am April 05, 2024 9:40am use fingertip amount or 1-2g every night vaginally x 2 weeks, then 1-3x weekly for maintenance Start: 07-22-2020 End: 03-24-2021 Estradiol 0.01 % (0.1 mg/gra m) cream Discontinued 1 g VAGINAL .COMPLEX 42.5 2 July 22, 2020 12:00am March 24, 2021 3:43pm 1 g vaginal three times a week X 4 weeks then may reduce to twice a week; Norgestimate-Ethinyl Estradiol (9 sources) Progestin, Estrogen Start: 01-04-2019 End: 06-17-2019 Norgestimate-Ethinyl Estradiol (Sprintec (28)) 0.25-35 mg-mcg tablet Discontinued 1 {tbl} PO DAILY January 04, 2019 1:00am June 17, 2019 3:07pm Start: 01-04-2019 End: 06-17-2019 take 1 tablet by mouth once daily Norgestimate-Ethinyl Estradiol (Sprintec (28)) 0.25-35 mg-mcg tablet Discontinued 1 TABLET PO DAILY January 04, 2019 12:00am June 17, 2019 2:07pm Start: 01-04-2019 End: 06-17-2019 take 1 tablet by mouth once daily Norgestimate-Ethinyl Estradiol (Sprintec (28)) 0.25-35 mg-mcg tablet Discontinued 1 TABLET PO DAILY January 04, 2019 1:00am June 17, 2019 3:07pm FLUoxetine 10 mg oral capsule (9 sources) Serotonin Reuptake Inhibitor Start: 01-04-2019 End: 06-17-2019 take 1 capsule by mouth once daily Fluoxetine 10 mg capsule Discontinued 10 mg PO DAILY January 04, 2019 1:00am June 17, 2019 3:07pm levonorgestrel 0.289059 mg/hr intrauterine system (12 sources) Progestin, Progestin-containi ng Intrauterine Device Start: 04-05-2024 End: 02-28-2025 Levonorgestrel (Mirena) 21 mcg/24 hr (8 yrs) 52 mg intrauterine device Discontinued 1 NMA INTRA-UTER ONCE April 05, 2024 12:00am February 28, 2025 9:15am as a single dose Start: 03-19-2020 End: 04-19-2022 Levonorgestrel (Mirena) 20 m cg/24 hours (5 yrs) 52 mg intrauterine device Discontinued 1 NMA INTRA-UTER ONCE 1 March 19, 2020 12:00am April 19, 2022 2:16pm as a single dose Start: 03-19-2020 End: 04-19-2022 Levonorgestrel (Mirena) 20 m cg/24 hours (5 yrs) 52 mg intrauterine device Discontinued 1 DEVICE INTRA-UTER ONCE March 19, 2020 12:00am April 19, 2022 2:16pm as a single dose miconazole nitrate 20 mg/ml vaginal cream (9 sources) Azole Antifungal Start: 11-22-2019 End: 12-06-2019 Miconazole Nitrate (Monistat 7) 2 % cream Discontinued 1 NMA VAGINAL AT BEDTIME November 22, 2019 1:00am December 06, 2019 5:18pm Start: 11-22-2019 End: 12-06-2019 Miconazole Nitrate (Monistat 7) 2 % cream Discontinued 1 APPFUL VAGINAL AT BEDTIME November 22, 2019 1:00am December 06, 2019 5:18pm naproxen 250 mg oral tablet (9 sources) Nonsteroidal Anti-inflammatory Drug Start: 02-07-2020 End: 03-19-2020 take 250-500 mg by mouth every eight hours as needed for pain Naproxen 250 MG tablet Discontinued 250 - 500 mg PO EVERY 8 HOURS NEEDED as needed for MILD PAIN 30 February 07, 2020 12:00am March 19, 2020 2:29pm norethindrone 0.35 mg oral tablet (9 sources) Start: 03-19-2020 End: 04-01-2020 take 1 tablet by mouth once daily Norethindrone (Contraceptive) (Ortho Micronor) 0.35 mg tablet Discontinued 0.35 mg PO DAILY 28 March 19, 2020 12:00am April 01, 2020 10:11am start day 1 of menstrual cycle Prenat.Vits,Monica,Mi s-Fdkp-Hodur tablet (3 sources) Start: 06-17-2019 End: 04-05-2024 Prenat.Vits,Monica,Mi p-Wskw-Hnfqc tablet Discontinued 1 {tbl} PO DAILY June 17, 2019 12:00am April 05, 2024 9:40am vitamin Start: 06-17-2019 End: 04-05-2024 Prenat.Vits,Monica,Iuv-Dacg-Bnq ic tablet Discontinued 1 {tbl} PO DAILY June 17, 2019 12:00am April 05, 2024 9:40am Problems Active Problems Problem Classification Problem Date Documented Date Episodic/Chronic Anxiety disorders (20 sources) Anxiety; Translations: [Anxiety disorder, unspecified] Onset: 08-22-2014 Chronic Comment on above: no meds, counseling encouraged; stable Contraceptive and procreative management (14 sources) Patient encounter status; Translations: [Encounter for removal of intrauterine contraceptive device] Episodic Melanomas of skin (2 sources) Malignant melanoma of lower limb ; Translations: [Malignant melanoma of right lower limb, including hip] Onset: 06-06-2022 06-06-2022 Chronic Melanomas of skin (11 sources) History of melanoma in situ of skin; Translations: [Personal history of melanoma in-situ] Episodic Comment on above: area removed from Le ft thigh 05/30/22. Menstrual disorders (4 sources) Excessive and frequent menstruation; Translations: [Excessive and frequent menstruation with regular cycle] Onset: 05-12-2009 05-12-2009 Chronic Nonspecific chest pain (9 sources) Chest pain; Translations: [Chest pain, unspecified] Onset: 11-18-2010 Resolved: 08-31-2016 09-28-2022 Episodic Other female genital disorders (3 sources) Dyspareunia; Translations: [Dyspareunia] 04-21-2025 Chronic Comment on above: vaginal estrogen cre am while nursing Other and delivery including normal (20 sources) Normal ; Translations: [Encounter for supervision of normal , unspecified, unspecified trimester] Episodic Comment on above: SM IAL girl Khanh ins [id number], LILLY 02/11/23, PC Chay, Spouse Wilian GBS neg, anatomy nl, declined NIPT & Carrier testing Other screening for suspected conditions (not mental disorders or infectious disease) (1 source) Encounter for screening for malignant neoplasm of cervix; Translations: [Encounter for screening for malignant neoplasm of cervix] Onset: 04-25-2025 Episodic Skin and subcutaneous tissue infections (5 sources) Cellulitis of right foot; Translations: [Cellulitis of right lower limb] Onset: 09-24-2024 08-29-2024 Episodic Unclassified (2 sources) Normal labor; Translations: [Active labor at term] 01-30-2023 Past or Other Problems Problem Classification Problem Date Documented Da te Episodic/Chronic Other skin disorders (2 sources) Acne; Translations: [Other acne] Onset: 05-12-2009 05-12-2009 Episodic Results Test Name Value Interpretation Reference Range Facility PAP IG HPV APTIMA 16/18,45on 04-22-2025 ADEQ Comment Normal . [facility] Comment on above: Order Comment: Speci men Comment: [id number] Specimen Comment: No. of containers..01 ThinPrep Vial Result Comment: Sati sfactory for evaluation. No endocervical component is identified. Performed By: #### L 7400.0280 #### [facility] [address] [place], [address] COMM . Normal . [facility] Comment on above: Order Comment: Speci men Comment: [id number] Specimen Comment: No. of containers..01 ThinPrep Vial Performed By: #### L 7400.0280 #### [facility] [address] [place], [address] COMMENT Comment Normal . [facility] Comment on above: Order Comment: Speci men Comment: [id number] Specimen Comment: No. of containers..01 ThinPrep Vial Result Comment: This liquid based ThinPrep(R) pap test was screened with the use of an image guided system. Performed By: #### L 7400.0280 #### [facility] [address] [place], [address] DIAG Comment Normal . [facility] Comment on above: Order Comment: Speci men Comment: [id number] Specimen Comment: No. of containers..01 ThinPrep Vial Result Comment: NEGA TIVE FOR INTRAEPITHELIAL LESION OR MALIGNANCY. Performed By: #### L 7400.0280 #### [facility] [address] [place], [address] HPV APTIMA, HR Negative Normal Negative [facility] Comment on above: Order Comment: Speci men Comment: [id number] Specimen Comment: No. of containers..01 ThinPrep Vial Result Comment: This nucleic acid amplification test detects fourteen high- risk HPV types (16,18,31,33,35,39,45,51,52,56,58,59,66,68) without differentiation. Performed By: #### L 7400.0280 #### [facility] [address] [place], [address] HPV Kelsi Rfx Comment Normal . [facility] Comment on above: Order Comment: Speci men Comment: [id number] Specimen Comment: No. of containers..01 ThinPrep Vial Result Comment: Crit eria not met, HPV Genotype not performed. Performed at: - [address] [id number] Remnants Cutter: Colleen Rose MD, Phone: [phone] Performed at: = - [facility] [address] [facility], [place] [id number] Remnants Cutter: Colleen Rose MD, Phone: [phone] Performed By: #### L 7400.0280 #### [facility] [address] [place], [place], [id number] PAPSMR Comment Normal . [facility] Comment on above: Order Comment: Speci men Comment: [id number] Specimen Comment: No. of containers..01 ThinPrep Vial Result Comment: The Pap smear is a screening test designed to aid in the detection of premalignant and malignant conditions of the uterine cervix. It is not a diagnostic procedure and should not be used as the sole means of detecting cervical cancer. Both false-positive and false-negative reports do occur. Performed By: #### L 7400.0280 #### [facility] [address] [place], [place], [id number] PERFORM Comment Normal . [facility] Comment on above: Order Comment: Speci men Comment: [id number] Specimen Comment: No. of containers..01 ThinPrep Vial Result Comment: Tres Hodgson Parasitologist (ASCP) Performed By: #### L 7400.0280 #### [facility] [address] [place], [place], [address] Cervical or vaginal specimen microscopic examination by liquid based cytology (reportOrdered By: Avelina Goodson on 04-21-2025 Cytology report Cyto stain.thin prep Doc (Cvx/Vag) Comment . [facility] Comment on above: Criteria not met, HP V Genotype not performed.Performed at: - [address], [place] [id number] Director: Colleen Rose MD, Phone: [phone] at: =G - [facility] [address] [place] [id number] Director: Colleen Rose MD, Phone: [phone] Cervical or vagninal specime n microscopic examination by cytology stain (reported asOrdered By: Avelina Goodson on 04-21-2025 Cytology report Cyto stain Doc (Cvx/Vag) Comment . [facility] Comment on above: The Pap smear is a s creening test designed to aid in thedetection of premalignant and malignant conditions of theuterine cervix. It is not a diagnostic procedure andshould not be used as the sole means of detecting cervicalcancer. Both false-positive and false-negative reports dooccur. Detection in cervical specim en of any of human papilloma virus (HPV) 16, 18, 31, 33,Ordered By: Avelina Goodson on 04-21-2025 HPV 16+18+31+33+35+39+45+ 51+52+56+58+59+66+68 DNA Probe+sig amp Ql (Cvx) Negative Negative [facility] Comment on above: This nucleic acid am plification test detects fourteen high- risk HPV types (16,18,31,33,35,39,45,51,52,56,58,59,66,68)without differentiation. Laboratory - CytologyOrdered By: Avelina Goodson on 04-21-2025 Parasitologist Cyto stain Nom (Cvx/Vag) [ID] Comment . [facility] Comment on above: Miguel Hodgson, Cyto logist (ASCP) Laboratory - Miscellaneous t estsOrdered By: Avelina Goodson on 04-21-2025 Service comment (Unsp spec) [Interp] . . [facility] No Panel InformationOrdered By: Avelina Goodson on 04-21-2025 Pap Smear Specimen Adequacy Comment . [facility] Comment on above: Satisfactory for durga luation. No endocervical component is identified. Facilities Administrator Office Visit Reporton 04-21-2025 Facilities Administrator Office Visit Report [facility] [address], [address] [place] [address] OFFICE VISIT Date of Service: 04/21/25 MR#: [id number] Acct: [id number] Name: LITZY PORTILLO Rep #: [id number] : 1990 Provider: SURINDER uribe Age/Sex: 34/F [place] [facility] [place]: Signed Intake Vital Signs 09/01/24 09:41 02/28/25 09:14 04/21/25 09:11 04/21/25 09:16 Height 5 ft 5 in 5 ft 5 in 5 ft 5 in 5 ft 5 in Weight: 167 lb 14.4 oz 174 lb 8 oz 171 lb BMI 27.9 29.0 28.4 BP 131/82 H 117/84 H 122/84 H Respiration 20 H Pulse 109 H Temp 97.1 F L Pulse Oximetry (%) 100 Intake Visit Reasons: Annual (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) Chief Complaint: Annual Fitting Room Checker Required: No Is patient in pain?: No Allergies No Known Allergies Allergy (Verified 04/21/25 09:11) Medications ???Medication ???Instructions ???Recorded ???Confirmed ???Type NK 02/28/25 04/21/25 History Is last menstrual period known: Yes Last Menstrual Period: 04/16/25 Post menopausal: No Patient : No : No PFSH Medical History Vaginal delivery Melanoma Anxiety Surgical History s/p right ear surgery Family History Father Diabetes Colon cancer Social History adopted: No household members: spouse and children number of children: 2 current occupational status: employed current occupation: [employer] pets and animals: Yes pets and animals: dog(s) history of recent travel: No sexually active: Yes Smoking Status: Never smoker alcohol intake: former details: occasionally- not while substance use type: does not use well-balanced diet: daily or most days caffeine: No eating out: rarely or never during the past year weight has: remained stable what type of physical activity do you participate in: none alba/evangelical: Latter Day seatbelt use: always do you feel safe at home: Yes additional social history: Lnaqcet-Wwnkhc-[employer]biouskqh [employer] 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 Date Name GA/Weeks Outcome Route Bth Weight Infant Gen Labor Lgth Anesthesia Del Locatn Provider FOB Unknown Jiménez 39 live - full term 6#6oz Female Wilian 02/05/20 Chay 41 live - full term Male none [facility] Encounter for routine gynecological examination Details: LITZY PORTILLO is a 34 year old who presents for annual exam. Denies concerns. Plans to attempt next month. Just had first menses since IUD removal Last PAP: 2021 History of abnormal PAP: no Last mammogram: age 42 Female Reproductive History Last Menstrual Period: 04/16/25 ROS Const Constitutional: Denies fatigue, weight gain or weight loss Cardio Card: Denies chest pain Resp Resp: Denies cough or dyspnea on exertion GI GI: Denies abdominal pain, bloating, change in stool character, constipation or vomiting : Reports as per HPI; Denies difficulty voiding, pelvic pain, urinary frequency, urinary incontinence, urinary urgency, vaginal discharge or vaginal pruritus Exam Const General: cooperative, healthy appearing, no acute distress and well developed Orientation: alert, oriented to person and oriented to place HENLA Head: normal to inspection Neck Neck: normal visual inspection Thyroid: thyroid normal Lymphatic: no lymphadenopathy noted Chest Breast inspection: normal inspection of the breasts and normal inspection of the axillae Breast palpation: normal palpation of the breasts, normal palpation of the axillae and no axillary lymphadenopathy Resp Effort Inspection: normal respiratory effort GI Palpation: soft, no masses and nontender Rectal Exam: deferred External Female Exam: normal external appearance and normal appearance of the urethra Urethra: normal appearance of the urethra and normal palpation Speculum Exam - Vagina: normal appearance of the vagina and normal vaginal discharge Speculum Exam - Cervix: normal appearance of the cervix Bimanual Exam- Vagina Uterus: normal bimanual exam, uterine size normal, uterine shape normal and non-tender Bimanual Exam- Adnexa, other: normal adnexae, no masses, normal and non-tender Pelvic Support: normal Neuro General: patient alert and patient oriented x3 Psych Affect: normal affect Coding Level of Care Code Off vis,est,prev 18-39yrs Diagnoses Encounter for (more content not included)... Normal [facility] Facilities Administrator Office Visit Reporton 02-28-2025 Facilities Administrator Office Visit Report [facility] [address], [address] [place] [address] OFFICE VISIT Date of Service: 02/28/25 MR#: [id number] Acct: [id number] Name: LITZY PORTILLO Rep #: [id number] : 1990 Provider: Dr. Chari proctor MD Age/Sex: 34/F Location[place] [facility] [place] Status: Signed with Addenda ADDENDUM by Dr. Chari Mg MD on 03/20/25 at 0136 Assessment and Plan Assessment and Plan Orders: Orders IUD Removal 02/28/25 Z30.432 - Encounter for removal of intrauterine contraceptive device Comments Comments: Sign out documentation: Completed Procedure: Speculum placed in vagina, IUD string visualized and grasped with ring forceps. IUD easily removed in its entirety and patient tolerated well. 03/20/25 0136 Date Chari Mg MD cc: * Signed Intake Vital Signs 09/01/24 09:41 02/28/25 09:14 Height 5 ft 5 in 5 ft 5 in Weight: 174 lb 8 oz BMI 29.0 BP 117/84 H Intake Visit Reasons: IUD REMOVAL (MIRENA) Fitting Room Checker Required: No Is patient in pain?: No Allergies No Known Allergies Allergy (Verified 04/05/24 09:39) Medications ???Medication ???Instructions ???Recorded ???Confirmed ???Type NK 02/28/25 02/28/25 History Is last menstrual period known: No PFSH PFSH Medical History Vaginal delivery Melanoma Anxiety Surgical History s/p right ear surgery Family History Father Diabetes Colon cancer Social History (Updated 04/05/24 @ 09:40 by Genesis Valenzuela) adopted: No household members: spouse and children number of children: 2 current occupational status: employed current occupation: [employer] pets and animals: Yes pets and animals: dog(s) history of recent travel: No sexually active: Yes Smoking Status: Never smoker alcohol intake: former details: occasionally- not while substance use type: does not use well-balanced diet: daily or most days caffeine: No eating out: rarely or never during the past year weight has: remained stable what type of physical activity do you participate in: none alba/evangelical: Latter Day seatbelt use: always do you feel safe at home: Yes additional social history: [employer]ruogju[employer] 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 Date Name GA/Weeks Outcome Route Bth Weight Infant Gen Labor Lgth Anesthesia Del Locatn Provider FOB Unknown Tino 39 live - full term 6#6oz Female Wilian 02/05/20 Chay 41 live - full term Male none [facility] HPI IUD REMOVAL (MIRENA) Details: LITZY PORTILLO is a 34 year old who presents for iud removal wanting to conceive ROS Const Constitutional: Reports system reviewed and no additional complaints, except as documented : Reports system reviewed and no additional complaints, except as documented and as per HPI Exam Const General: cooperative, healthy appearing, comfortable and no acute distress External Female Exam: normal external appearance and normal appearance of the urethra Urethra: normal appearance of the urethra Speculum Exam - Vagina: normal appearance of the vagina and normal vaginal discharge Speculum Exam - Cervix: normal appearance of the cervix (strings seen 3-4 cm in length) Bimanual Exam- Vagina Uterus: normal bimanual exam Bimanual Exam- Adnexa, other: normal adnexae, adnexae mobile and no masses Coding Level of Care Code Off vis,est,level 2 Diagnoses Encounter for IUD removal Z30.432 Assessment and Plan Assessment and Plan (1) Encounter for IUD removal: Orders: Orders IUD Removal Today Z30.432 - Encounter for removal of intrauterine contraceptive device Plan Problem list updated and treatment plans were reviewed with the patient and relevant educational handouts given. See problem list details for specific plan information. 02/28/25 1140 Date Chari Laraign Signature: Date (if applicable) CC: Normal [facility] Emergency Department Summary on 09-01-2024 Emergency Department Summary [facility] Medical Records Department [address] [place] [address] Emergency Department Summary 09/01/24 MR#: [id number] Acct: [id number] Name: LITZY PORTILLO Rep #: [id number] : 1990 33 From: Nader Monk DO PCP: Dr. Chavez Devlin MD Status:DEP ER Location: ED HPI History of Present Illness Chief Complaint: Cellulitis Narrative Narrative: Chief complaint and HPI: Right foot cellulitis. 33-year-old female presents for evaluation of right foot cellulitis. Patient states that she went to [place] couple days ago and noticed redness at the web of the right first and second digit. She states the redness progressed and was seen by urgent care. She was placed on Bactrim for cellulitis. Patient denies any injury to her foot or insect bite that she knows of. She states the redness is progressing. She endorses mild pain in the area of the redness. She denies any fever, chills, abdominal pain, nausea, vomiting. Review of systems: See HPI Medications: As listed on the chart Allergies: As listed on the chart PFSH: Per chart Vital signs: As listed on the chart. Reviewed. Physical exam: Gen: A O x3, NAD Head: Normocephalic, atraumatic Eyes: No sclera icterus, conjunctiva clear ENT: Moist mucous membranes CV: Regular rate and rhythm, no murmurs Resp: Lungs CTA BL, no w/r/c Musc: Full ROM, no deformity, patient has erythema and warmth at the right webspace of the first and second digit, there is a small area of ecchymosis in the center. Mild swelling to the first and second digit. No crepitus. No bullae. No skin sloughing. Mildly tender to palpation. Full range of motion of the foot, toes, ankle. Neuro: Alert, oriented, grossly intact, sensation intact Psych: Cooperative, appropriate mood and affect [facility] History Vaginal delivery Melanoma Anxiety Home Medications ???Medication ???Instructions ???Recorded ???Last Taken ???Type levonorgestrel 21 mcg/24 hr (up to 1 device intrauterine ONCE 04/05/24 Unknown History 8 years) 52 mg intrauterine device (Mirena) doxycycline hyclate 100 mg capsule 100 mg PO BID #10 caps 09/01/24 Unknown Rx Allergy/AdvReac Type Severity Reaction Status Date / Time No Known Allergies Allergy Verified 04/05/24 09:39 Family History Father Diabetes Colon cancer Surgical History s/p right ear surgery Social History (Updated 04/05/24 @ 09:40 by Genesis Valenzuela) adopted: No household members: spouse and children number of children: 2 current occupational status: employed current occupation: [employer] pets and animals: Yes pets and animals: dog(s) history of recent travel: No sexually active: Yes Smoking Status: Never smoker alcohol intake: former details: occasionally- not while substance use type: does not use well-balanced diet: daily or most days caffeine: No eating out: rarely or never during the past year weight has: remained stable what type of physical activity do you participate in: none alba/evangelical: Latter Day seatbelt use: always do you feel safe at home: Yes additional social history: [employer] 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 See physical exam findings. Findings are concerning for cellulitis however cannot rule out early Lyme disease or spider bite. Given that patient is tender in this area will obtain x-ray of the foot. [place] ordered for pain. X-ray of the right foot was interpreted by me, EM physician no fracture or dislocation. Patient does have swelling of the first and second digit which is seen also on physical exam. Patient has no systemic symptoms at this time. Will broaden the patient's antibiotic to doxycycline. She was placed on a 10-day course. Patient was told to monitor for worsening symptoms such as worsening swelling, worsening spreading, fever, chills, abdominal pain, nausea vomiting, worsening pain in the foot. She was told to return back to the ED if any of these occur or she receives no improvement. She confirmed understanding the plan. Follow-up with PCP. Impression: 1. Right foot cellulitis Radiography Diagnostic Testing: Clinical Impression(s) from Imaging Studies Foot X-Ray 09/01/24 10:35 (more content not included)... Normal [facility] Foot min 3 Viewson 4 Foot min 3 Views [facility] Imaging Services [address] [place] [address] Foot min 3 Views MR#: [id number] Acct: [id number] Name: LITZY PORTILLO Rep #: [id number] : 1990 F 33 From: Beth rodriguez MD PCP: Dr. Chavez Devlin MD Status: REG ER Study: Foot min 3 Views Date of Exam: 09/01/24 Exam# [id number] Ordering Dr: Nader Monk DO [id number] HISTORY: Pain. TECHNIQUE: XR Foot Min 3 Views. COMPARISON: None. FINDINGS: BONES : No acute fracture identified. Mineralization unremarkable. JOINTS: No dislocation. Joint spaces maintained. SOFT TISSUES: Soft tissue swelling of the first and second toes. No radiopaque foreign body identified. RAD/Foot min 3 Views IMPRESSION: No acute osseous abnormality identified in the right foot. Soft tissue swelling of the first and second toes. Electronically Signed: Beth Reese MD at 11:02 EDT , CC: Dr. Nader Monk DO; Dr. Chavez Devlin MD Pattern Generator Operator: [facility]igned [facility] Visit (UCWSTR ) -------- LITZY PORTILLO ([id number]) 1990 F Date Time Provider Department 08/29/24 6:00 PM JEFFY HANEY [facility] During your visit today, we recorded the following information about you: Temperature Pulse Respiration Blood pressure 98.7 degrees 80/minute 18/minute 133/79 Weight 75.6 kg Jeffy Haney APRN.INSPECTOR [employer]IC 08/30/2024 8:54 AM Signed This note was created using NoteWriter. Subjective Litzy Portillo is a 33 year old female. Relevant PMH and allergies reviewed: Pt is a 33 year old female who presents today with right foot pain, swelling and rash x 3 days. Pt states she noticed the rash on her foot after taking off her socks. Pt states the rash began to spread and she started to have numbness/tingling in her toes. Pt states she has is having difficulty walking due to the pain. Pt denies any trauma, changes in detergents, soaps, puncture wounds or possible exposures. Pt denies nausea, vomiting, headache, fever, chills, chest pain and SOB. Denies prior history of same Has been applying topical cream without much relief My sister who is a nurse said it looks like cellulitis The history is provided by the patient. No computer language coder was used. Rash This is a new problem. The current episode started in the past 7 days. The problem has been gradually worsening since onset. The affected locations include the right foot. The rash is characterized by pain, itchiness and redness. It is unknown if there was an exposure to a precipitant. Pertinent negatives include no congestion, cough, diarrhea, eye pain, fatigue, fever, rhinorrhea, shortness of breath, sore throat or vomiting. Treatments tried: hydrocortisone cream. The treatment provided no relief. There is no history of allergies, asthma, eczema or varicella. PAST MEDICAL HISTORY Diagnosis Date Juvenile osteochondrosis of lower extremity, excluding foot past med had a seizure after a fall in gymnastics. CT normal. 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 MEDICATIONS sulfamethoxazole-trimeth oprim (BACTRIM DS) 800-160 mg per tablet Take 1 tablet by mouth two times a day for 7 days. FAMILY HISTORY Problem Relation Age of Onset Diabetes Paternal Grandfather Alzheimer's Disease Paternal Grandfather Arthritis Mother rheumatoid Diabetes Father Social History Tobacco Use Smoking status: Never Smokeless tobacco: Never Substance Use Topics Alcohol use: No Drug use: No Review of Systems Constitutional: Negative for activity change, appetite change, chills, fatigue and fever. HENT: Negative for congestion, ear discharge, ear pain, rhinorrhea, sinus pressure, sinus pain, sore throat and trouble swallowing. Eyes: Negative for pain, discharge and itching. Respiratory: Negative for cough, shortness of breath and wheezing. Cardiovascular: Negative for chest pain and palpitations. Gastrointestinal: Negative for abdominal pain, diarrhea, nausea and vomiting. Musculoskeletal: Negative for neck pain. Skin: Positive for color change and rash. Allergic/Immunologic: Negative for environmental allergies and food allergies. Neurological: Negative for headaches. Hematological: Negative for adenopathy. Does not bruise/bleed easily. Objective BP 133/79 Pulse 80 Temp 37.1 ?C (98.7 ?F) Resp 18 Wt 75.6 kg (166 lb 10.7 oz) LMP 09/13/2017 (Exact Date) SpO2 99% BMI 27.73 kg/m? Physical Exam Constitutional: General: She is not in acute distress. Appearance: Normal appearance. She is not ill-appearing. HENT: Head: Normocephalic and atraumatic. Mouth/Throat: Mouth: Mucous membranes are moist. Eyes: General: Right eye: No discharge. Left eye: No discharge. Conjunctiva/sclera: Conjunctivae normal. Pupils: Pupils are equal, round, and reactive to light. Cardiovascular: Rate and Rhythm: Normal rate and regular rhythm. Pulses: Normal pulses. Heart sounds: Normal heart sounds. Pulmonary: Effort: Pulmonary effort is normal. No respiratory distress. Breath sounds: Normal breath sounds. No wheezing or rhonchi. Abdominal: General: Abdomen is flat. Palpations: Abdomen is soft. Musculoskeletal: General: Normal range of motion. Cervical back: Normal range of motion and neck supple. No tenderness. Skin: General: Skin is warm. Capillary Refill: Capillary refill takes less than 2 seconds. Findings: Rash present. No signs of injury. Rash is macular. Rash is not crusting. Comments: Warm erythematous irregular cir (more content not included)... Normal [facility] Absolute lymphocyte countOrd ered By: Dr. Mg on 01-30-2023 Lymphocytes Auto (Unsp spec) [#/Vol] 1.95 10*3/uL 0.83-4.51 [facility] Basophil percentageOrdered B y: Dr. Mg on 01-30-2023 Basophils/100 WBC (Bld) 0.8 % 0-1 [facility] Eosinophils/100 WBC (Bld) 0.7 % 0-5 [facility] Neutrophils (Bld) [#/Vol] 5.6 10*3/uL 2.0-7.7 [facility] Neutrophils/100 WBC (Bld) 66.8 % 47-70 [facility] WBC (Bld) [#/Vol] 8.4 10*3/uL 4.4-11.0 [facility] Blood erythrocytes count (nu mber/volume)Ordered By: Dr. Mg on 01-30-2023 RBC (Bld) [#/Vol] 4.14 10*6/uL 4.2-5.4 [facility] Blood hemoglobin measurement (mass/volume)Ordered By: Dr. Mg on 01-30-2023 Hemoglobin (Bld) [Mass/Vol] 12.0 g/dL 12.0-15.0 [facility] Blood lymphocytes/100 leukoc ytesOrdered By: Dr. Mg on 01-30-2023 Lymphocytes/100 WBC (Bld) 23.2 % 19-41 [facility] Blood monocytes/100 leukocyt esOrdered By: Dr. Mg on 01-30-2023 Monocytes/100 WBC (Bld) 7.7 % 0-10 [facility] Blood platelet mean volumeOr dered By: Dr. Mg on 01-30-2023 Platelet mean volume (Bld) [Entitic vol] 12.5 fL 6.2-12.0 [facility] Determination of erythrocyte mean corpuscular volume (MCV)Ordered By: Dr. Mg on 01-30-2023 MCV (RBC) [Entitic vol] 89.6 fL 81-99 [facility] Hematocrit Auto (Bld) [Volum e fraction]Ordered By: Dr. Mg on 01-30-2023 Hematocrit (Bld) [Volume fraction] 37.1 % 37-47 [facility] Laboratory - Hematology and Cell countsOrdered By: Dr. Mg on 01-30-2023 Erythrocyte distribution width (RBC) [Entitic vol] 41.8 fL 35.1-43.9 [facility] Erythrocyte distribution width (RBC) [Ratio] 12.8 % 11.6-14.6 [facility] Immature granulocytes/100 WBC (Bld) 0.800 % 0.0-0.9 [facility] Comment on above: IG% - Immature Granu locytes (promyelocytes, myelocytes and metamyelocytes) > 1% indicates that a LEFT SHIFT is Present. MCH (RBC) [Entitic mass] 29.0 pg 27.0-32.0 [facility] Nucleated RBC/100 WBC (Bld) [Ratio] 0 % 0-5 [facility] MCHC Auto (RBC) [Mass/Vol]Or dered By: Dr. Mg on 01-30-2023 MCHC (RBC) [Mass/Vol] 32.3 g/dL 32-36 [facility] Platelets bldOrdered By: Dr. Mg on 01-30-2023 Platelets (Bld) [#/Vol] 148 10*3/uL 150-450 [facility] Serum Treponema species anti body detectionOrdered By: Dr. Mg on 01-30-2023 Treponema sp Ab Ql (S) Non-Reactive [facility] Laboratory - Chemistry and C hemistry - challengeon 01-27-2023 Glucose Ql (U) Negative [facility] Laboratory - Urinalysison Protein Ql (U) 1+ [facility] No Panel InformationOrdered By: Dr. Hobbs on 01-23-2023 Group B Streptococcus Culture Group B Beta Streptococcus is not isolated. [facility] Laboratory - Chemistry and C hemistry - challengeon 01-20-2023 Glucose Ql (U) Negative [facility] Laboratory - Urinalysison Protein Ql (U) Negative [facility] Laboratory - Chemistry and C hemistry - challengeon 01-13-2023 Glucose Ql (U) Negative [facility] Laboratory - Urinalysison Protein Ql (U) 1+ [facility] Urine creatinine measurement (mass/volume)Ordered By: Dr. Hobbs on 01-13-2023 Creatinine (U) [Mass/Vol] 596.00 mg/dL NO RANGE EST. [facility] Urine protein measurement (m ass/volume)Ordered By: Dr. Hobbs on 01-13-2023 Protein (U) [Mass/Vol] 78.5 mg/dL 0.0-11.8 [facility] Urine protein/creatinine mas s ratioOrdered By: Dr. Hobbs on 01-13-2023 Protein/Creatinine (U) [Mass ratio] 132 mg/g CRE 0-200 [facility] Laboratory - Chemistry and C hemistry - challengeon 01-06-2023 Glucose Ql (U) Negative [facility] Laboratory - Urinalysison Protein Ql (U) Negative [facility] Laboratory - Chemistry and C hemistry - challengeon 12-23-2022 Glucose Ql (U) Negative [facility] Laboratory - Urinalysison Protein Ql (U) Negative [facility] Laboratory - Chemistry and C hemistry - challengeon 12-09-2022 Glucose Ql (U) Negative [facility] Laboratory - Urinalysison Protein Ql (U) Negative [facility] Absolute lymphocyte countOrd ered By: Dr. Hobbs on 11-09-2022 Lymphocytes Auto (Unsp spec) [#/Vol] 1.33 10*3/uL 0.83-4.51 [facility] Basophil percentageOrdered B y: Dr. Hobbs on 11-09-2022 Basophils/100 WBC (Bld) 0.4 % 0-1 [facility] Eosinophils/100 WBC (Bld) 1.2 % 0-5 [facility] Neutrophils (Bld) [#/Vol] 5.4 10*3/uL 2.0-7.7 [facility] Neutrophils/100 WBC (Bld) 73.9 % 47-70 [facility] WBC (Bld) [#/Vol] 7.3 10*3/uL 4.4-11.0 [facility] Blood erythrocytes count (nu mber/volume)Ordered By: Dr. Hobbs on 11-09-2022 RBC (Bld) [#/Vol] 4.10 10*6/uL 4.2-5.4 [facility] Blood hemoglobin measurement (mass/volume)Ordered By: Dr. Hobbs on 11-09-2022 Hemoglobin (Bld) [Mass/Vol] 12.8 g/dL 12.0-15.0 [facility] Blood lymphocytes/100 leukoc ytesOrdered By: Dr. Hobbs on 11-09-2022 Lymphocytes/100 WBC (Bld) 18.2 % 19-41 [facility] Blood monocytes/100 leukocyt esOrdered By: Dr. Hobbs on 11-09-2022 Monocytes/100 WBC (Bld) 5.6 % 0-10 [facility] Blood platelet mean volumeOr dered By: Dr. Hobbs on 11-09-2022 Platelet mean volume (Bld) [Entitic vol] 10.8 fL 6.2-12.0 [facility] Determination of erythrocyte mean corpuscular volume (MCV)Ordered By: Dr. Hobbs on 11-09-2022 MCV (RBC) [Entitic vol] 91.2 fL 81-99 [facility] Gestational diabetes screen 1-hour screen with 50g oral glucose loadOrdered By: Dr. Hobbs on 11-09-2022 Glucose 1 Hr post 50 g glucose PO [Mass/Vol] 103 mg/dL 70-140 [facility] HIV 1 and HIV-2 antibody ass ay with HIV-1 p24 antigen detectionOrdered By: Dr. Hobbs on 11-09-2022 HIV 1+2 Ab+HIV1 p24 Ag IA Ql Non-Reactive Nonreactive [facility] Hematocrit Auto (Bld) [Volum e fraction]Ordered By: Dr. Hobbs on 11-09-2022 Hematocrit (Bld) [Volume fraction] 37.4 % 37-47 [facility] Laboratory - Chemistry and C hemistry - challengeon 11-09-2022 Glucose Ql (U) Negative [facility] Laboratory - Hematology and Cell countsOrdered By: Dr. Hobbs on 11-09-2022 Erythrocyte distribution width (RBC) [Entitic vol] 43.2 fL 35.1-43.9 [facility] Erythrocyte distribution width (RBC) [Ratio] 13.2 % 11.6-14.6 [facility] Immature granulocytes/100 WBC (Bld) 0.700 % 0.0-0.9 [facility] Comment on above: IG% - Immature Granu locytes (promyelocytes, myelocytes and metamyelocytes) > 1% indicates that a LEFT SHIFT is Present. MCH (RBC) [Entitic mass] 31.2 pg 27.0-32.0 [facility] Nucleated RBC/100 WBC (Bld) [Ratio] 0 % 0-5 [facility] Laboratory - Urinalysison Protein Ql (U) Negative [facility] MCHC Auto (RBC) [Mass/Vol]Or dered By: Dr. Hobbs on 11-09-2022 MCHC (RBC) [Mass/Vol] 34.2 g/dL 32-36 [facility] Platelets bldOrdered By: Dr. Hobbs on 11-09-2022 Platelets (Bld) [#/Vol] 197 10*3/uL 150-450 [facility] Serum Treponema species anti body detectionOrdered By: Dr. Hobbs on 11-09-2022 Treponema sp Ab Ql (S) Non-Reactive [facility] Laboratory - Chemistry and C hemistry - challengeon 10-21-2022 Glucose Ql (U) Negative [facility] Laboratory - Urinalysison Protein Ql (U) Negative [facility] Absolute lymphocyte counton 09-20-2022 Lymphocytes Auto (Unsp spec) [#/Vol] 1.82 10*3/uL 0.83-4.51 [facility] Work Phone: Basophil percentageon 2021 Basophils/100 WBC (Bld) 0.5 % 0-1 [facility] Work Phone: Chloride [Moles/Vol] 107 mmol/L 98-107 [facility] Work Phone: Eosinophils/100 WBC (Bld) 1.2 % 0-5 [facility] Work Phone: Glucose [Mass/Vol] 82 mg/dL 74-106 [facility] Work Phone: Neutrophils (Bld) [#/Vol] 5.0 10*3/uL 2.0-7.7 [facility] Work Phone: Neutrophils/100 WBC (Bld) 66.2 % 47-70 [facility] Work Phone: Potassium [Moles/Vol] 3.7 mmol/L 3.5-5.1 [facility] Work Phone: Sodium [Moles/Vol] 137 mmol/L 136-145 [facility] Work Phone: WBC (Bld) [#/Vol] 7.5 10*3/uL 4.4-11.0 [facility] Work Phone: Blood erythrocytes count (nu mber/volume)on 09-20-2022 RBC (Bld) [#/Vol] 3.85 10*6/uL 4.2-5.4 [facility] Work Phone: Blood hemoglobin measurement (mass/volume)on 09-20-2022 Hemoglobin (Bld) [Mass/Vol] 11.5 g/dL 12.0-15.0 [facility] Work Phone: Blood lymphocytes/100 leukoc yteson 09-20-2022 Lymphocytes/100 WBC (Bld) 24.2 % 19-41 [facility] Work Phone: Blood monocytes/100 leukocyt eson 09-20-2022 Monocytes/100 WBC (Bld) 7.4 % 0-10 [facility] Work Phone: Blood platelet mean volumeon 09-20-2022 Platelet mean volume (Bld) [Entitic vol] 10.3 fL 6.2-12.0 [facility] Work Phone: Determination of erythrocyte mean corpuscular volume (MCV)on 09-20-2022 MCV (RBC) [Entitic vol] 87.0 fL 81-99 [facility] Work Phone: Hematocrit Auto (Bld) [Volum e fraction]on 09-20-2022 Hematocrit (Bld) [Volume fraction] 33.5 % 37-47 [facility] Work Phone: Laboratory - Chemistry and C hemistry - challengeon 09-20-2022 CO2 [Moles/Vol] 21.0 mmol/L 21.0-32.0 [facility] Work Phone: Urea nitrogen/Creatinine [Mass ratio] 19.1 mg/mg 10-20 [facility] Work Phone: Laboratory - Hematology and Cell countson 09-20-2022 Erythrocyte distribution width (RBC) [Entitic vol] 39.7 fL 35.1-43.9 [facility] Work Phone: Erythrocyte distribution width (RBC) [Ratio] 12.6 % 11.6-14.6 [facility] Work Phone: Immature granulocytes/100 WBC (Bld) 0.500 % 0.0-0.9 [facility] Work Phone: Comment on above: IG% - Immature Granu locytes (promyelocytes, myelocytes and metamyelocytes) > 1% indicates that a LEFT SHIFT is Present. MCH (RBC) [Entitic mass] 29.9 pg 27.0-32.0 [facility] Work Phone: Nucleated RBC/100 WBC (Bld) [Ratio] 0 % 0-5 [facility] Work Phone: MCHC Auto (RBC) [Mass/Vol]on 09-20-2022 MCHC (RBC) [Mass/Vol] 34.3 g/dL 32-36 [facility] Work Phone: No Panel Informationon 09-20 D-Dimer Quantitative (PE/DVT) 2.27 FEU/ug/m 0.27-0.49 [facility] Work Phone: Comment on above: CRITICAL VALUE VERIF IED. CALLED TO BRIDGET COONEY RN ED09/20/221937 Ryan Yi.RESULTS READ BACK BY SAME . D-Dimer ELEVATED (>0.49): Additional studies and clinicalassessments are indicated to conclude diagnosis of:Deep Vein Thrombosis (DVT) or Pulmonary Embolism (PE) Estimated Creatinine Clearance Calc 95.76 ml/min [facility] Work Phone: Estimated GFR (MDRD) Amer 111 mL/min >60 [facility] Work Phone: Comment on above: GFR Calc Estimated GFR (MDRD) Non-Af Amer 92 mL/min >60 [facility] Work Phone: Comment on above: Non- GFR Calc Troponin I High Sensitivity < 3 pg/mL 3.0-54.0 [facility] Work Phone: Comment on above: Please Note: [place] t Units and Gender Specific Reference Ranges. For more information see Policy Stat Procedure [place] High Sensitivity Troponin (TNIH) and attachments. Platelets bldon 09-20-2022 Platelets (Bld) [#/Vol] 163 10*3/uL 150-450 [facility] Work Phone: Serum or plasma calcium roxie urement (mass/volume)on 09-20-2022 Calcium [Mass/Vol] 8.7 mg/dL 8.5-10.1 [facility] Work Phone: Serum or plasma creatinine m easurement (mass/volume)on 09-20-2022 Creatinine [Mass/Vol] 0.78 mg/dL 0.55-1.02 [facility] Work Phone: Comment on above: The validity of the calculated GFR & GFRAA in patients over 70 years has not been determined. Clinical correlation is essential. Serum or plasma urea nitroge n measurement (mass/volume)on 09-20-2022 Urea nitrogen [Mass/Vol] 15 mg/dL 7-18 [facility] Work Phone: Thin prep Papanicolaou smear with manual screeningon 09-20-2022 Thin prep Papanicolaou smear with manual screening 9 5-15 [facility] Work Phone: Laboratory - Chemistry and C hemistry - challengeon 09-09-2022 Glucose Ql (U) Negative [facility] Work Phone: Laboratory - Urinalysison Protein Ql (U) Negative [facility] Work Phone: Absolute lymphocyte counton 08-12-2022 Lymphocytes Auto (Unsp spec) [#/Vol] 1.82 10*3/uL 0.83-4.51 [facility] Work Phone: Basophil percentageon 2021 Basophils/100 WBC (Bld) 0.5 % 0-1 [facility] Work Phone: Eosinophils/100 WBC (Bld) 0.9 % 0-5 [facility] Work Phone: Neutrophils (Bld) [#/Vol] 4.2 10*3/uL 2.0-7.7 [facility] Work Phone: Neutrophils/100 WBC (Bld) 64.5 % 47-70 [facility] Work Phone: WBC (Bld) [#/Vol] 6.5 10*3/uL 4.4-11.0 [facility] Work Phone: Blood erythrocytes count (nu mber/volume)on 08-12-2022 RBC (Bld) [#/Vol] 4.15 10*6/uL 4.2-5.4 [facility] Work Phone: [phone] Blood hemoglobin measurement (mass/volume)on 08-12-2022 Hemoglobin (Bld) [Mass/Vol] 12.4 g/dL 12.0-15.0 [facility] Work Phone: Blood lymphocytes/100 leukoc yteson 08-12-2022 Lymphocytes/100 WBC (Bld) 28.0 % 19-41 [facility] Work Phone: Blood monocytes/100 leukocyt eson 08-12-2022 Monocytes/100 WBC (Bld) 5.8 % 0-10 [facility] Work Phone: Blood platelet mean volumeon 08-12-2022 Platelet mean volume (Bld) [Entitic vol] 10.4 fL 6.2-12.0 [facility] Work Phone: Determination of erythrocyte mean corpuscular volume (MCV)on 08-12-2022 MCV (RBC) [Entitic vol] 87.2 fL 81-99 [facility] Work Phone: HIV 1 and HIV-2 antibody ass ay with HIV-1 p24 antigen detectionon 08-12-2022 HIV 1+2 Ab+HIV1 p24 Ag IA Ql Non-Reactive Nonreactive [facility] Work Phone: Hematocrit Auto (Bld) [Volum e fraction]on 08-12-2022 Hematocrit (Bld) [Volume fraction] 36.2 % 37-47 [facility] Work Phone: Laboratory - Chemistry and C hemistry - challengeon 08-12-2022 Glucose Ql (U) Negative [facility] Work Phone: Laboratory - Hematology and Cell countson 08-12-2022 Erythrocyte distribution width (RBC) [Entitic vol] 38.9 fL 35.1-43.9 [facility] Work Phone: Erythrocyte distribution width (RBC) [Ratio] 12.2 % 11.6-14.6 [facility] Work Phone: Immature granulocytes/100 WBC (Bld) 0.300 % 0.0-0.9 [facility] Work Phone: Comment on above: IG% - Immature Granu locytes (promyelocytes, myelocytes and metamyelocytes) > 1% indicates that a LEFT SHIFT is Present. MCH (RBC) [Entitic mass] 29.9 pg 27.0-32.0 [facility] Work Phone: Nucleated RBC/100 WBC (Bld) [Ratio] 0 % 0-5 [facility] Work Phone: Laboratory - Urinalysison Protein Ql (U) Negative [facility] Work Phone: MCHC Auto (RBC) [Mass/Vol]on 08-12-2022 MCHC (RBC) [Mass/Vol] 34.3 g/dL 32-36 [facility] Work Phone: No Panel Informationon 08-12 Hepatitis B Surface Antigen Non-Reactive Nonreactive [facility] Work Phone: Hepatitis C Antibody Non-Reactive Nonreactive [facility] Work Phone: Comment on above: Non Reactive: < 0.8 Equivocal: >/= 0.8 to < 1.0 Reactive: >/= 1.0The CDC recommends that a reactive/equivocal HCV antibody result be followed up by the HCV Nucleic Acid Amplificationtest (794214) Rubella IgG Antibody Reactive Nonreactive [facility] Work Phone: Comment on above: Antibody Results Int erpretation of Immune Status Non Reactive Presumed Non-Immune Equivocal Equivocal Reactive Presumed Immune Platelets bldon 08-12-2022 Platelets (Bld) [#/Vol] 189 10*3/uL 150-450 [facility] Work Phone: Serum Treponema species anti body detectionon 08-12-2022 Treponema sp Ab Ql (S) Non-Reactive [facility] Work Phone: Cervical or vagninal specime n microscopic examination by cytology stain (reported ason 07-12-2022 Cytology report Cyto stain Doc (Cvx/Vag) Comment . [facility] Work Phone: Comment on above: The Pap smear is a s creening test designed to aid in thedetection of premalignant and malignant conditions of theuterine cervix. It is not a diagnostic procedure andshould not be used as the sole means of detecting cervicalcancer. Both false-positive and false-negative reports dooccur. Chlamydia trachomatis rRNA d etection by probe and target amplification methodon 07-12-2022 C. trachomatis rRNA LIBBY+probe Ql (Unsp spec) Negative Negative [facility] Work Phone: Laboratory - Cytologyon 06-15 Parasitologist Cyto stain Nom (Cvx/Vag) [ID] Comment . [facility] Work Phone: Comment on above: [address] Cytote chnologist (ASCP) Laboratory - Drug toxicology on 07-12-2022 Amphetamines Ql (U) Negative <1000 ng/mL [facility] Work Phone: Benzodiazepines Ql (U) Negative < 200 ng/mL [facility] Work Phone: Cannabinoids Screen Ql (U) Negative < 50 ng/mL [facility] Work Phone: Cocaine Ql (U) Negative < 300 ng/mL [facility] Work Phone: Opiates Ql (U) Negative < 300 ng/mL [facility] Work Phone: Laboratory - Microbiology an d Antimicrobial susceptibilityon 07-12-2022 N. gonorrhoeae DNA LIBBY+probe Ql (Unsp spec) Negative Negative [facility] Work Phone: Comment on above: Performed at: =[facility] Rosalind jacobo [address] [id number] Director: Colleen Rose MD, Phone: [phone] Laboratory - Miscellaneous t estson 07-12-2022 Service comment (Unsp spec) [Interp] Comment . [facility] Work Phone: Comment on above: This liquid based Th inPrep(R) pap test was screened withthe use of an image guided system. Service comment (Unsp spec) [Interp] . . [facility] Work Phone: No Panel Informationon 07-12 Human Papillomavirus Screen Comment . [facility] Work Phone: Comment on above: The HPV DNA reflex c riteria were not met with this specimenresult therefore, no HPV testing was performed.Performed at: [address] [id number] Director: Colleen Rose MD, Phone: [phone] MDMA (Ecstasy) Screen Negative < 500 ng/mL [facility] Work Phone: Pathology report final diagnosis Narrative Comment . [facility] Work Phone: Comment on above: NEGATIVE FOR INTRAEP ITHELIAL LESION OR MALIGNANCY. Urine Barbiturates Screen Negative < 200 ng/mL [facility] Work Phone: Urine Drug Screen Comment [facility] Work Phone: Comment on above: CONFIRMATORY TESTING FOR ALL POSITIVE URINE DRUG SCREENRESULTS WILL ONLY BE SENT OUT UPON PHYSICIAN ORDER. VISTA Urine Drug Screen methods provide only preliminaryanalytical test results. A more specific alternate chemicalmethod must be used in order to obtain a confirmedanalytical result. Gas chromatography/mass spectrometery(GC/MS) is the preferred confirmatory method. Clinicalconsideration and professional judgement should be appliedto any drug of abuse test result, particularly whenpreliminary positive results are used. URINE TCA TESTING MUST BE ORDERED SEPARATELY. USE TESTMNEMONIC: [facility] Urine Methadone Screen Negative < 300 ng/mL [facility] Work Phone: Urine phencyclidine (PCP) de tectionon 07-12-2022 Phencyclidine Ql (U) Negative < 25 ng/mL [facility] Work Phone: Serum or plasma choriogonado tropin detectionon 06-24-2022 HCG ( test) [place]l [address]37 mIU/mL <4 [facility] Work Phone: Comment on above: hCG levels with Gest ational AgeGestational Age hCG mIU/mL (IU/L)0.2 - 1 week 5 - 501-2 weeks 50 - 5002-3 weeks 100 - 61551-3 weeks 500 - 726283-0 weeks 1000 - 015115-2 weeks 42229 - 100,0006-8 weeks 88749 - 200,0002-3 months 27233 - 100,000 Culture, urine Bacteria identified Cx Nom (U) Positive [facility] Work Phone: Vital Signs Date Time Vital Sign Value Performing Clinician Facility 05-27-2025 08:06-0400 Body height 165.[address] Chavez Devlin MD Work Phone: 5(517)280-925985 [place] [address] 05-27-2025 08:06-0400 Body mass index (BMI) [Ratio] 29 kg/m2 Dr. Chavez Devlin MD Work Phone: 2(752)179-247285 [place] [address] 05-27-2025 08:06-0400 Body weight 78.[address] Chavez Devlin MD Work Phone: 9(176)087-292885 [place] [address] 05-27-2025 08:06-0400 Diastolic blood pressure 85 mm[Hg] Dr. Chavez Devlin MD Work Phone: 6(320)194-324985 [place] [address] 05-27-2025 08:06-0400 Systolic blood pressure 122 mm[Hg] Dr. Chavez Devlin MD Work Phone: 6(201)165-025274 [place] [address] 04-21-2025 09:16-0400 Body height 165.[address] Chavez Devlin MD Work Phone: 6(467)260-423285 [place] [address] 04-21-2025 09:11-0400 Body mass index (BMI) [Ratio] 28.4 kg/m2 Dr. Chavez Devlin MD Work Phone: 9(287)959-457774 [place] [address] 04-21-2025 09:11-0400 Body weight 77.[address] Chavez Devlin MD Work Phone: 4(719)798-804285 [place] [address] 04-21-2025 09:11-0400 Diastolic blood pressure 84 mm[Hg] Dr. Chavez Devlin MD Work Phone: [facility] 04-21-2025 09:11-0400 Systolic blood pressure 122 mm[Hg] Dr. Chavez Devlin MD Work Phone: [facility] 02-28-2025 09:14-0400 Body mass index (BMI) [Ratio] 29 kg/m2 Dr. Chavez Devlin MD Work Phone: [facility] 02-28-2025 09:14-0400 Body weight 79.[address] Chavez Devlin MD Work Phone: [facility] 02-28-2025 09:14-0400 Diastolic blood pressure 84 mm[Hg] Dr. Chavez Devlin MD Work Phone: [facility] 02-28-2025 09:14-0400 Systolic blood pressure 117 mm[Hg] Dr. Chavez Devlin MD Work Phone: [facility] 08-29-2024 18:03-0400 Body mass index (BMI) [Ratio] 27.73 kg/m2 Jeffy Haney SALES SPECIAL AGENT.INSPECTOR [employer]RIC Work Phone: [facility] 08-29-2024 18:03-0400 Body temperature 98.71 [degF] Jeffy Haney SALES SPECIAL AGENT.INSPECTOR FABRIC Work Phone: [facility] 08-29-2024 18:03-0400 Body weight 75.6 kg Jeffy Haney SALES SPECIAL AGENT.INSPECTOR [employer]RIC Work Phone: [facility] 08-29-2024 18:03-0400 Diastolic blood pressure 79 mm[Hg] Jeffy Haney SALES SPECIAL AGENT.INSPECTOR FABRIC Work Phone: [facility] 08-29-2024 18:03-0400 Heart rate 80 /min Jeffy Haney SALES SPECIAL AGENT.INSPECTOR FABRIC Work Phone: [facility] 08-29-2024 18:03-0400 Respiratory rate 18 /min Jeffy Haney SALES SPECIAL AGENT.INSPECTOR FABRIC Work Phone: [facility] 08-29-2024 18:03-0400 SaO2% (BldA) [Mass fraction] 99 % Jeffy Haney SALES SPECIAL AGENT.INSPECTOR FABRIC Work Phone: [facility] 08-29-2024 18:03-0400 Systolic blood pressure 133 mm[Hg] Jeffy Haney SALES SPECIAL AGENT.INSPECTOR FABRIC Work Phone: [facility] 01-31-2023 07:56-0400 Diastolic blood pressure 80 mm[Hg] Dr. Chavez Devlin Work Phone: [facility] 01-31-2023 07:56-0400 Systolic blood pressure 122 mm[Hg] Dr. Chavez Devlin Work Phone: [facility] 01-31-2023 07:55-0400 Heart rate 88 /min Dr. Chavez Devlin Work Phone: 7(955)445-269738 [address] 01-31-2023 07:42-0400 Body temperature 97.8 [degF] Dr. Chavez Devlin Work Phone: 6(188)492-311574 [place] [address] 01-31-2023 07:42-0400 Respiratory rate 16 /min Dr. Chavez Devlin Work Phone: [facility] 01-31-2023 07:42-0400 SaO2% (BldA) [Mass fraction] 100 % Dr. Chavez Devlin Work Phone: 3(337)845-631774 [place] [address] 01-30-2023 01:18-0400 Body height 165.[address] Chavez Devlin Work Phone: [facility] 01-30-2023 01:18-0400 Body mass index (BMI) [Ratio] 30.9 kg/m2 Dr. Chavez Devlin Work Phone: 5(818)290-531574 [place] [address] 01-30-2023 01:18-0400 Body weight 84.[address] Chavez Devlin Work Phone: 6(058)554-537474 [place] [address] 01-27-2023 10:56-0400 Body height 165.[address] Chavez Devlin Work Phone: 1(231)791-165574 [place] [address] 01-27-2023 10:56-0400 Body mass index (BMI) [Ratio] 30.7 kg/m2 Dr. Chavez Devlin Work Phone: 6(941)979-143985 [place] [address] 01-27-2023 10:56-0400 Body weight 83.[address] Chavez Devlin Work Phone: 7(669)890-242585 [place] [address] 01-27-2023 10:56-0400 Diastolic blood pressure 86 mm[Hg] Dr. Chavez Devlin Work Phone: 3(518)465-966185 [place] [address] 01-27-2023 10:56-0400 Systolic blood pressure 125 mm[Hg] Dr. Chavez Devlin Work Phone: 0(406)508-962785 [place] [address] 01-20-2023 09:33-0500 Body mass index (BMI) [Ratio] 30.3 kg/m2 Dr. Chavez Devlin Work Phone: 0(272)005-204985 [place] [address] 01-20-2023 09:33-0500 Body weight 82.[address] Chavez Devlin Work Phone: 0(830)403-461385 [place] [address] 01-20-2023 09:33-0500 Diastolic blood pressure 86 mm[Hg] Dr. Chavez Devlin Work Phone: 4(470)815-636785 [place] [address] 01-20-2023 09:33-0500 Systolic blood pressure 133 mm[Hg] Dr. Chavez Devlin Work Phone: 3(863)707-504885 [place] [address] 01-13-2023 09:20-0500 Body height 165.[address] Chavez Devlin Work Phone: 3(330)299-026585 [place] [address] 01-13-2023 09:20-0500 Body mass index (BMI) [Ratio] 30.4 kg/m2 Dr. Chavez Devlin Work Phone: 4(393)672-409485 [place] [address] 01-13-2023 09:20-0500 Body weight [address] Chavez Devlin Work Phone: 5(532)317-246285 [place] [address] 01-13-2023 09:20-0500 Diastolic blood pressure 85 mm[Hg] Dr. Chavez Devlin Work Phone: 5(902)838-450385 [place] [address] 01-13-2023 09:20-0500 Systolic blood pressure 124 mm[Hg] Dr. Chavez Devlin Work Phone: 3(626)727-929085 [place] [address] 01-06-2023 09:28-0500 Body mass index (BMI) [Ratio] 30.1 kg/m2 Dr. Chavez Devlin Work Phone: 9(886)892-797585 [place] [address] 01-06-2023 09:28-0500 Body weight 82.[address] Chavez Devlin Work Phone: 4(311)948-789285 [place] [address] 01-06-2023 09:28-0500 Diastolic blood pressure 86 mm[Hg] Dr. Chavez Devlin Work Phone: 1(067)350-090685 [place] [address] 01-06-2023 09:28-0500 Systolic blood pressure 124 mm[Hg] Dr. Chavez Devlin Work Phone: 5(634)658-234485 [place] [address] 12-23-2022 10:33-0500 Body mass index (BMI) [Ratio] 30.2 kg/m2 Dr. Chavez Devlin Work Phone: 7(194)089-561285 [place] [address] 12-23-2022 10:33-0500 Body weight 82.[address] Chavez Devlin Work Phone: 6(579)320-474485 [place] [address] 12-23-2022 10:33-0500 Diastolic blood pressure 74 mm[Hg] Dr. Chavez Devlin Work Phone: 0(985)344-414185 [place] [address] 12-23-2022 10:33-0500 Systolic blood pressure 122 mm[Hg] Dr. Chavez Devlin Work Phone: 7(482)195-118685 [place] [address] 12-09-2022 13:24-0500 Diastolic blood pressure 83 mm[Hg] Dr. Chavez Devlin Work Phone: 4(185)399-333685 [place] [address] 12-09-2022 13:24-0500 Systolic blood pressure 121 mm[Hg] Dr. Chavez Devlin Work Phone: 6(447)806-527485 [place] [address] 12-09-2022 13:11-0500 Body mass index (BMI) [Ratio] 30.2 kg/m2 Dr. Chavez Devlin Work Phone: 1(448)348-391885 [place] [address] 12-09-2022 13:11-0500 Body weight 82.[address] Chavez Devlin Work Phone: 7(985)107-070385 [place] [address] 11-25-2022 10:05-0500 Diastolic blood pressure 83 mm[Hg] Dr. Chavez Devlin Work Phone: 5(397)270-740685 [place] [address] 11-25-2022 10:05-0500 Systolic blood pressure 116 mm[Hg] Dr. Chavez Devlin Work Phone: 0(154)257-220685 [place] [address] 11-25-2022 09:10-0500 Body mass index (BMI) [Ratio] 29.7 kg/m2 Dr. Chavez Devlin Work Phone: 8(064)931-543885 [place] [address] 11-25-2022 09:10-0500 Body weight 81.[address] Chavez Devlin Work Phone: 5(878)231-636685 [place] [address] 11-09-2022 09:44-0500 Body height 165.[address] Chavez Devlin Work Phone: 6(074)455-340185 [place] [address] Work Phone: 11-09-2022 09:44-0500 Body mass index (BMI) [Ratio] 29.7 kg/m2 Dr. Chavez Devlin Work Phone: 4(366)907-378285 [place] [address] 11-09-2022 09:44-0500 Body weight 81.[address] Chavez Devlin Work Phone: 2(589)668-775585 [place] [address] 11-09-2022 09:44-0500 Diastolic blood pressure 80 mm[Hg] Dr. Chavez Devlin Work Phone: 9(014)988-291085 [place] [address] 11-09-2022 09:44-0500 Systolic blood pressure 130 mm[Hg] Dr. Chavez Devlin Work Phone: 4(753)464-378085 [place] [address] 10-21-2022 13:56-0500 Body mass index (BMI) [Ratio] 29.6 kg/m2 Dr. Chavez Devlin Work Phone: 7(739)010-471985 [place] [address] 10-21-2022 13:56-0500 Body weight 80.[address] Chavez Devlin Work Phone: 4(306)199-903185 [place] [address] 10-21-2022 13:56-0500 Diastolic blood pressure 82 mm[Hg] Dr. Chavez Devlin Work Phone: [facility] 10-21-2022 13:56-0500 Systolic blood pressure 135 mm[Hg] Dr. Chavez Devlin Work Phone: [facility] 09-20-2022 20:43-0500 Body temperature 98.5 [degF] Dr. Chavez Devlin Work Phone: [facility] Work Phone: 09-20-2022 20:43-0500 Diastolic blood pressure 84 mm[Hg] Dr. Chavez Devlin Work Phone: [facility] Work Phone: 09-20-2022 20:43-0500 Heart rate 86 /min Dr. Chavez Devlin Work Phone: [facility] Work Phone: 09-20-2022 20:43-0500 Respiratory rate 20 /min Dr. Chavez Devlin Work Phone: [facility] Work Phone: 09-20-2022 20:43-0500 SaO2% (BldA) [Mass fraction] 99 % Dr. Chavez Deviln Work Phone: [facility] Work Phone: 09-20-2022 20:43-0500 Systolic blood pressure 118 mm[Hg] Dr. Chavez Devlin Work Phone: [facility] Work Phone: 09-20-2022 18:07-0500 Body mass index (BMI) [Ratio] 29.2 kg/m2 Dr. Chavez Devlin Work Phone: [facility] Work Phone: 09-20-2022 18:07-0500 Body weight 79.[address] Chavez Devlin Work Phone: [facility] Work Phone: 09-09-2022 15:32-0400 Body mass index (BMI) [Ratio] 29.2 kg/m2 Dr. Chavez Devlin Work Phone: [facility] Work Phone: 09-09-2022 15:32-0400 Body weight 79.[address] Chavez Devlin Work Phone: [facility] Work Phone: 09-09-2022 15:32-0400 Diastolic blood pressure 84 mm[Hg] Dr. Chavez Devlin Work Phone: [facility] Work Phone: 09-09-2022 15:32-0400 Systolic blood pressure 123 mm[Hg] Dr. Chavez Devlin Work Phone: [facility] Work Phone: 08-12-2022 10:19-0400 Body height 165.[address] Chavez Devlin Work Phone: [facility] Work Phone: 08-12-2022 10:18-0400 Body mass index (BMI) [Ratio] 28.6 kg/m2 Dr. Chavez Devlin Work Phone: [facility] Work Phone: 08-12-2022 10:18-0400 Body weight 78.[address] Chavez Devlin Work Phone: [facility] Work Phone: 08-12-2022 10:18-0400 Diastolic blood pressure 80 mm[Hg] Dr. Chavez Devlin Work Phone: [facility] Work Phone: 08-12-2022 10:18-0400 Systolic blood pressure 120 mm[Hg] Dr. Chavez Devlin Work Phone: [facility] Work Phone: 07-12-2022 14:21-0400 Body height 165.[address] Chavez Devlin Work Phone: [facility] Work Phone: 07-12-2022 14:20-0400 Body mass index (BMI) [Ratio] 29.3 kg/m2 Dr. Chavez Devlin Work Phone: [facility] Work Phone: 07-12-2022 14:20-0400 Body weight 79.[address] Chavez Devlin Work Phone: [facility] Work Phone: 07-12-2022 14:20-0400 Diastolic blood pressure 70 mm[Hg] Dr. Chavez Devlin Work Phone: [facility] Work Phone: 07-12-2022 14:20-0400 Systolic blood pressure 120 mm[Hg] Dr. Chavez Devlin Work Phone: [facility] Work Phone: 04-19-2022 14:10-0400 Body mass index (BMI) [Ratio] 29 kg/m2 Dr. Chavez Devlin Work Phone: [facility] Work Phone: 04-19-2022 14:10-0400 Body weight 79.[address] Chavez Devlin Work Phone: [facility] Work Phone: 04-19-2022 14:10-0400 Diastolic blood pressure 79 mm[Hg] Dr. Chavez Devlin Work Phone: [facility] Work Phone: 04-19-2022 14:10-0400 Systolic blood pressure 146 mm[Hg] Dr. Chavez Devlin Work Phone: [facility] Work Phone: Encounters Encounter Date Encounter Type Care Provider Facility Start: 05-27-2025 End: 05-27-[address] Chavez Devlin MD Work Phone: -[facility] Start: 05-27-2025 End: 05-27-2025 Patient encounter procedure Avelina CADENA -[facility] Work Phone: Start: 04-21-2025 End: 04-21-[address] Chavez Devlin MD Work Phone: [facility] Work Phone: Start: 04-21-2025 End: 04-21-2025 Patient encounter procedure Avelina Goodson TRAVEL REGISTERED NURSE PACU-C -Laboratory Specimen Work Phone: Start: 04-21-2025 End: 04-21-2025 Patient encounter procedure Avelina Goodson TRAVEL REGISTERED NURSE PACU-C -[facility] Work Phone: Start: 04-21-2025 End: 04-21-2025 Patient encounter status Avelina Goodson TRAVEL REGISTERED NURSE PACU-C [facility] Start: 04-21-2025 End: 04-21-[address] Chavez Devlin MD Work Phone: [facility] Work Phone: Start: 04-21-2025 End: 04-21-2025 ambulatory Avelina Goodson TRAVEL REGISTERED NURSE PACU Facility:[facility] Start: 02-28-2025 End: 02-28-[address] Chari Mg MD -[facility] Work Phone: Start: 02-28-2025 End: 02-28-2025 ambulatory Chari Mg [place] [place]: 09-01-2024 End: 09-01-2024 ambulatory Gwendolyn Hewitt RN NURSE IN STORE MARKETING REPRESENTATIVE Comment on above: Foot Pain (Midfoot) Start: 09-01-2024 End: 09-01-2024 Emergency department patient visit Chavez Devlin Facility:[facility] Start: 08-29-2024 End: 08-29-2024 ambulatory CHAVEZ DEVLIN Facility:[facility] Start: 08-29-2024 End: 08-29-2024 Patient encounter procedure Jeffy Haney APRN.INSPECTOR FABRIC Work Phone: [facility] Comment on above: Cellulitis of right foot (Primary Dx) Start: 01-31-2023 Non-patient / Non-visit Dr. Chavez Devlin Work Phone: [facility] Start: 01-30-2023 Non-patient / Non-visit Dr. Chavez Devlin Work Phone: [facility] Start: 01-30-2023 End: 01-31-2023 Evaluation and management of inpatient Dr. Chavez Philip Phone: [facility] Start: 01-27-2023 End: 01-27-[address] Chavez Devlin Work Phone: [facility] Start: 01-20-2023 End: 01-20-[address] Chavez Devlin Work Phone: [facility] Work Phone: Start: 01-20-2023 End: 01-20-[address] [facility] Start: 01-20-2023 End: 01-20-[address] Chavez Devlin Work Phone: [facility] Start: 01-13-2023 End: 01-13-[address] Chavez Devlin Work Phone: [facility] Work Phone: Start: 01-13-2023 End: 01-13-[address] [facility] Start: 01-13-2023 End: 01-13-[address] Chavez Devlin Work Phone: [facility] Start: 01-06-2023 End: 01-06-[address] Chavez Devlin Work Phone: [facility] Start: 12-23-2022 End: 12-23-[address] Chavez Devlin Work Phone: [facility] Start: 12-09-2022 End: 12-09-[address] Chavez Devlin Work Phone: [facility] Start: 11-25-2022 End: 11-25-[address] Chavez Devlin Work Phone: [facility] Start: 11-09-2022 End: 11-09-[address] Chavez Devlin Work Phone: [facility] Work Phone: Start: 11-09-2022 End: 11-09-[address] Chavez Devlin Work Phone: [facility] Start: 10-21-2022 End: 10-21-[address] Chavez Devlin Work Phone: [facility] Start: 09-23-2022 End: 09-23-2022 ambulatory [facility] Start: 09-20-2022 End: 09-20-2022 Emergency department patient visit Dr. Chaevz Devlin Work Phone: [facility]-Emergency Department Start: 09-09-2022 End: 09-09-[address] Chavez Devlin Work Phone: [facility] Start: 08-12-2022 End: 08-12-[address] Chavez Devlin Work Phone: [facility] Work Phone: Start: 08-12-2022 End: 08-12-[address] Chavez Devlin Work Phone: [facility] Start: 07-12-2022 End: 07-12-[address] Chavez Devlin Work Phone: [facility] Work Phone: Start: 07-12-2022 End: 07-12-[address] Chavez Devlin Work Phone: [facility]-Laboratory, Specimen Start: 07-12-2022 End: 07-12-[address] Chavez Devlin Work Phone: [facility] Start: 06-24-2022 End: 06-24-[address] Chavez Devlin Work Phone: [facility]-Ultrasound, [facility] Start: 04-19-2022 End: 04-19-[address] Chavez Devlin Work Phone: [facility] Procedures Date Procedure Procedure Detail Performing Clinician Start: 04-21-2025 Liquid based cervica l cytology screening Dr. Chavez Devlin MD Work Phone: Comment on above: NEGATIVE FOR INTRAEP ITHELIAL LESION OR MALIGNANCY. This liquid based Th inPrep(R) pap test was screened withthe use of an image guided system. Start: 09-20-2022 CT angiography of ch est with contrast Dr. Chavez Devlin Work Phone: Start: 09-20-2022 Plain chest X-ray Dr. Connor Devlin Work Phone: Start: 06-24-2022 Transvaginal obstetr ic ultrasonography Dr. Chavez Devlin Work Phone: Group B Streptococcu s Culture Dr. Chavez Devlin Work Phone: Urine culture Dr. Chavez Hunter Work Phone: Plan of Treatment Date Care Activity Detail Author Start: 12-09-2032 Urine microalbumin profile DTaP,Tdap,Td Vaccine (9 - Td or Tdap) [facility] Start: 07-12-2027 Screening for malignant neoplasm of cervix Cervical Cancer Screening [facility] Start: 07-14-2024 Covid-19 Vaccine () Covid-19 Vaccine () [facility] Start: 07-14-2024 Influenza vaccination Influenza Vaccine (#1) [facility] Start: 01-31-2023 Patient discharge [facility] Start: 01-30-2023 Administration of medication [facility] Start: 01-30-2023 Application of ice collar, cap or bag [facility] Start: 01-30-2023 Catheterization of vein [facility] Start: 01-30-2023 Introduction of urinary catheter [facility] Start: 01-30-2023 Measuring intake and output [facility] Start: 01-30-2023 Notification of physician [facility] Start: 01-30-2023 Procedure discontinued [facility] Start: 01-30-2023 Provision of activity privileges [facility] Start: 01-30-2023 Vital signs measurements [facility] Start: 01-30-2023 [facility] Start: 01-30-2023 Admission procedure [facility] Start: 09-20-2022 [facility] Work Phone: Start: 07-12-2022 Chlamydia deoxyribonucleic acid detection [facility] Work Phone: Start: 07-12-2022 Liquid based cervical cytology screening [facility] Work Phone: Start: 2010 Depression Screening Depression Screening [facility] Start: 2010 Hepatitis C screening Hepatitis C Screening [facility] Start: 2010 HIV screening HIV Screening [facility] Start: 08-07-2006 Hepatitis B Vaccine (3 of 3 - 3-dose series) Hepatitis B Vaccine (3 of 3 - 3-dose series) [facility] CBC W Auto Different ial panel - Blood [facility] Work Phone: Hepatitis B surface antigen measurement [facility] Work Phone: Hepatitis C antibody measurement [facility] Work Phone: HIV 1+2 Ab+HIV1 p24 Ag [Presence] in Serum or Plasma by Immunoassay [facility] Work Phone: Liquid based cervica l cytology screening [facility] Neisseria gonorrhoea e rRNA [Presence] in Unspecified specimen by LIBBY with probe detection [facility] Work Phone: Path report.final Dx Spec [facility] Work Phone: Patient Education [facility] Work Phone: Patient referral [facility] Work Phone: PCR test for Chlamyd ia trachomatis [facility] Work Phone: Rubella IgG measurement [facility] Work Phone: Streptococcus agalac tiae [Presence] in Unspecified specimen by Organism specific culture [facility] Treponema sp Ab [Pre sence] in Serum [facility] Work Phone: [facility] Immunizations Immunization Date Immunization Notes Care Provider Fa cility 12-09-2022 tetanus toxoid, reduced diphtheria toxoid, and acellular pertussis vaccine, adsorbed Dr. Chavez Devlin Work Phone: [facility] 11-07-2019 tetanus toxoid, reduced diphtheria toxoid, and acellular pertussis vaccine, adsorbed Dr. Chavez Devlin Work Phone: [facility] 09-13-2019 influenza virus vaccine, unspecified formulation Jeffy Haney SALES SPECIAL AGENT.INSPECTOR FABRIC Work Phone: [facility] 08-16-[address] Chavez Devlin Work Phone: [facility] 09-21-2017 influenza, seasonal, injectable Jeffy Haney SALES SPECIAL AGENT.INSPECTOR FABRIC Work Phone: [facility] 06-12-2006 hepatitis B vaccine, pediatric or pediatric/adolescent dosage Jeffy Haney SALES SPECIAL AGENT.INSPECTOR FABRIC Work Phone: [facility] 06-12-2006 tetanus toxoid, reduced diphtheria toxoid, and acellular pertussis vaccine, adsorbed Jeffy Haney SALES SPECIAL AGENT.INSPECTOR FABRIC Work Phone: [facility] 06-02-2005 hepatitis B vaccine, pediatric or pediatric/adolescent dosage Jeffy Haney SALES SPECIAL AGENT.INSPECTOR FABRIC Work Phone: [facility] 06-02-2005 measles, mumps and rubella virus vaccine Jeffy Haney SALES SPECIAL AGENT.INSPECTOR FABRIC Work Phone: [facility] 07-08-1997 diphtheria, tetanus toxoids and acellular pertussis vaccine Jeffy Haney SALES SPECIAL AGENT.INSPECTOR FABRIC Work Phone: [facility] 07-08-1997 haemophilus influenz ae type b vaccine, HbOC conjugate Jeffy Haney SALES SPECIAL AGENT.INSPECTOR FABRIC Work Phone: [facility] 07-08-1997 trivalent poliovirus vaccine, live, oral Jeffy Haney SALES SPECIAL AGENT.INSPECTOR FABRIC Work Phone: [facility] 09-13-1996 chicken pox (disease) Tootie a Haney SALES SPECIAL AGENT.INSPECTOR FABRIC Work Phone: [facility] Work Phone: 07-09-1996 diphtheria, tetanus toxoids and acellular pertussis vaccine Jeffy Haney SALES SPECIAL AGENT.INSPECTOR FABRIC Work Phone: [facility] 07-09-1996 trivalent poliovirus vaccine, live, oral Jeffy Haney SALES SPECIAL AGENT.INSPECTOR FABRIC Work Phone: [facility] 03-17-1994 diphtheria, tetanus toxoids and acellular pertussis vaccine Jeffy Haney SALES SPECIAL AGENT.INSPECTOR FABRIC Work Phone: [facility] 03-17-1994 haemophilus influenz ae type b vaccine, HbOC conjugate Jeffy Haney SALES SPECIAL AGENT.INSPECTOR FABRIC Work Phone: [facility] 03-17-1994 measles, mumps and rubella virus vaccine Jeffy Haney SALES SPECIAL AGENT.INSPECTOR FABRIC Work Phone: [facility] 03-17-1994 trivalent poliovirus vaccine, live, oral Jeffy Haney SALES SPECIAL AGENT.INSPECTOR FABRIC Work Phone: [facility] 01-28-1993 diphtheria, tetanus toxoids and acellular pertussis vaccine Jeffy Haney SALES SPECIAL AGENT.INSPECTOR FABRIC Work Phone: [facility] Work Phone: 01-28-1993 haemophilus influenz ae type b vaccine, HbOC conjugate Jeffy Haney SALES SPECIAL AGENT.INSPECTOR FABRIC Work Phone: [facility] 01-28-1993 trivalent poliovirus vaccine, live, oral Jeffy Haney SALES SPECIAL AGENT.INSPECTOR FABRIC Work Phone: [facility] Work Phone: NEGATED: Highlighted row has not occurred!09-24-2007 hepatitis B vaccine, pediatric or pediatric/adolescent dosage Jeffy Haney SALES SPECIAL AGENT.INSPECTOR FABRIC Work Phone: [facility] Work Phone: Comment on above: Deferred: Postponed NEGATED: Highlighted row has not occurred!09-24-2007 Meningococcal, MCV4, unspecified conjugate formulation(groups A, C, Y and W-135) Jeffy Bailey SALES SPECIAL AGENT.INSPECTOR FABRIC Work Phone: [facility] Comment on above: Deferred: Postponed Payers Date Payer Category Payer Self-pay [id number] 2023 Unknown MMO MMO [employer] PPO [id number] 2023-Present [phone] [address] [place] [address] PPO [id number] 2023 Unknown [id number] 2010 Private Health Insurance [id number] 1992 Unknown [id number] Unknown ANTHEM [id number] Unknown [facility] [id number] Unknown [id number] Unknown [id number] Unknown [id number] Unknown [id number] Social History Date Type Detail Facility Start: 07-12-2022 End: 01-30-2023 Tobacco smoking status NHIS Unknown if ever smoked [facility] Start: 1990 Sex Assigned At Female [facility] Start: 09-01-2024 End: 05-27-2025 Tobacco smoking status NHIS Never smoked tobacco [facility] Start: 08-29-2024 Alcoholic beverage intake Current non-drinker of alcohol (finding) [facility] Start: 10-21-2020 End: 08-29-2024 History of Social function [facility] Start: 10-21-2020 End: 08-29-2024 Tobacco use panel [facility] National Score (1-10 0), lower number is lower risk Not on file [facility] Start: 1990 [facility] Goals Date Patient Goal Desired Activity /State Mental Status Date Assessment Result Facility 09-20-2022 Cognitive function Voice/Name [facility] Work Phone: Clinical Notes 07-12-2022 to 02-28-2025 Note Date & Type Note Facility 02-28-2025 Evaluation note Diagnosis Onset Date Resolution Encounter for IUD removal noneactive February 28, 2025 9:05am Encounter for routine gynecological examination noneactive April 21, 2025 9:10am [facility] Work Phone: [phone] Telephone encounter Note* Telephone Encounter - Gwendolyn Hewitt RN - 09/01/2024 9:16 AM EDT Reason for Call: swelling and purple foot, recently treated for an abscess, not getting better, seems to be worse. Outcome: Patient advised to go the Emergency Room now. Patient plans to go to [facility] at this time. Encouraged to pot puller and call 911 if anything worsens or changes in route. Gwendolyn Hewitt RN Reason for Disposition Purple or black skin on foot or toe Answer Assessment - Initial Assessment Questions 1. ONSET: last Monday 2. LOCATION: [place] foot between toes and to the top and side of the top of the foot 3. PAIN: 2/10 but swollen 4. WORK OR EXERCISE: has an abscess 5. CAUSE: has a treated wound that is getting worse 6. OTHER SYMPTOMS: Denies 7. : denies Protocols used: Foot [id number] [facility]10-20-2024 Miscellaneous Notes* Telephone Encounter - Gwendolyn Hewitt RN - 09/01/2024 9:16 AM EDT Reason for Call: swelling and purple foot, recently treated for an abscess, not getting better, seems to be worse. Outcome: Patient advised to go the Emergency Room now. Patient plans to go to [facility] at this time. Encouraged to pot puller and call 911 if anything worsens or changes in route. Gwendolyn Hewitt RN Reason for Disposition Purple or black skin on foot or toe Answer Assessment - Initial Assessment Questions 1. ONSET: last Monday 2. LOCATION: [place] foot between toes and to the top and side of the top of the foot 3. PAIN: 2/10 but swollen 4. WORK OR EXERCISE: has an abscess 5. CAUSE: has a treated wound that is getting worse 6. OTHER SYMPTOMS: Denies 7. : denies Protocols used: Foot [id number] [facility] NoteHNO ID: [id number] Author: JEFFY HANEY APRN.INSPECTOR FABRIC Service: ? Author Type: Nurse Practitioner Type: Progress Notes Filed: 08/30/2024 08:54 Note Text: This note was created using [facility]. Subjective Litzy Portillo is a 33 year old female. Relevant PMH and allergies reviewed: Pt is a 33 year old female who presents today with right foot pain, swelling and rash x 3 days. Pt states she noticed the rash on her foot after taking off her socks. Pt states the rash began to spread and she started to have numbness/tingling in her toes. Pt states she has is having difficulty walking due to the pain. Pt denies any trauma, changes in detergents, soaps, puncture wounds or possible exposures. Pt denies nausea, vomiting, headache, fever, chills, chest pain and SOB. Denies prior history of same Has been applying topical cream without much relief My sister who is a nurse said it looks like cellulitis The history is provided by the patient. No computer language coder was used. Rash This is a new problem. The current episode started in the past 7 days. The problem has been gradually worsening since onset. The affected locations include the right foot. The rash is characterized by pain, itchiness and redness. It is unknown if there was an exposure to a precipitant. Pertinent negatives include no congestion, cough, diarrhea, eye pain, fatigue, fever, rhinorrhea, shortness of breath, sore throat or vomiting. Treatments tried: hydrocortisone cream. The treatment provided no relief. There is no history of allergies, asthma, eczema or varicella. PAST MEDICAL HISTORY Diagnosis Date Juvenile osteochondrosis of lower extremity, excluding foot past med had a seizure after a fall in gymnastics. CT normal. 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 MEDICATIONS sulfamethoxazole-trimethoprim (BACTRIM DS) 800-160 mg per tablet Take 1 tablet by mouth two times a day for 7 days. FAMILY HISTORY Problem Relation Age of Onset Diabetes Paternal Grandfather Alzheimer's Disease Paternal Grandfather Arthritis Mother rheumatoid Diabetes Father Social History Tobacco Use Smoking status: Never Smokeless tobacco: Never Substance Use Topics Alcohol use: No Drug use: No Review of Systems Constitutional: Negative for activity change, appetite change, chills, fatigue and fever. HENT: Negative for congestion, ear discharge, ear pain, rhinorrhea, sinus pressure, sinus pain, sore throat and trouble swallowing. Eyes: Negative for pain, discharge and itching. Respiratory: Negative for cough, shortness of breath and wheezing. Cardiovascular: Negative for chest pain and palpitations. Gastrointestinal: Negative for abdominal pain, diarrhea, nausea and vomiting. Musculoskeletal: Negative for neck pain. Skin: Positive for color change and rash. Allergic/Immunologic: Negative for environmental allergies and food allergies. Neurological: Negative for headaches. Hematological: Negative for adenopathy. Does not bruise/bleed easily. Objective BP 133/79 Pulse 80 Temp 37.1 ?C (98.7 ?F) Resp 18 Wt 75.6 kg (166 lb 10.7 oz) LMP 09/13/2017 (Exact Date) SpO2 99% BMI 27.73 kg/m? Physical Exam Constitutional: General: She is not in acute distress. Appearance: Normal appearance. She is not ill-appearing. HENT: Head: Normocephalic and atraumatic. Mouth/Throat: Mouth: Mucous membranes are moist. Eyes: General: Right eye: No discharge. Left eye: No discharge. Conjunctiva/sclera: Conjunctivae normal. Pupils: Pupils are equal, round, and reactive to light. Cardiovascular: Rate and Rhythm: Normal rate and regular rhythm. Pulses: Normal pulses. Heart sounds: Normal heart sounds. Pulmonary: Effort: Pulmonary effort is normal. No respiratory distress. Breath sounds: Normal breath sounds. No wheezing or rhonchi. Abdominal: General: Abdomen is flat. Palpations: Abdomen is soft. Musculoskeletal: General: Normal range of motion. Cervical back: Normal range of motion and neck supple. No tenderness. Skin: General: Skin is warm. Capillary Refill: Capillary refill takes less than 2 seconds. Findings: Rash present. No signs of injury. Rash is macular. Rash is not crusting. Comments: Warm erythematous irregular [place] like present on web of 1st and 2nd toe and dorsal aspect of foot measuring approximately 3 cm. No abscess No petechia -no drainage -no streaking -no clear demarcation Neurological: General: No focal deficit present. Mental Status: She is alert and oriented to person, place, an (more content not included)...[facility]10-17-2024 History of Present illness Narrative* Jeffy Haney APRN.INSPECTOR FABRIC - 08/29/2024 6:19 PM EDT Images from the original note were not included. This note was created using NoteWriter. Subjective Litzy E Kassi is a 33 year old female. Relevant PMH and allergies reviewed: Pt is a 33 year old female who presents today with right foot pain, swelling and rash x 3 days. Pt states she noticed the rash on her foot after taking off her socks. Pt states the rash began to spread and she started to have numbness/tingling in her toes. Pt states she has is having difficulty walking due to the pain. Pt denies any trauma, changes in detergents, soaps, puncture wounds or possible exposures. Pt denies nausea, vomiting, headache, fever, chills, chest pain and SOB. Denies prior history of same Has been applying topical cream without much relief My sister who is a nurse said it looks like cellulitis The history is provided by the patient. No computer language coder was used. Rash This is a new problem. The current episode started in the past 7 days. The problem has been gradually worsening since onset. The affected locations include the right foot. The rash is characterized by pain, itchiness and redness. It is unknown if there was an exposure to a precipitant. Pertinent negatives include no congestion, cough, diarrhea, eye pain, fatigue, fever, rhinorrhea, shortness of breath, sore throat or vomiting. Treatments tried: hydrocortisone cream. The treatment provided no relief. There is no history of allergies, asthma, eczema or varicella. PAST MEDICAL HISTORY Diagnosis Date Juvenile osteochondrosis of lower extremity, excluding foot past med had a seizure after a fall in gymnastics. CT normal. 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 MEDICATIONS sulfamethoxazole-trimethoprim (BACTRIM DS) 800-160 mg per tablet Take 1 tablet by mouth two times aday for 7 days. FAMILY HISTORY Problem Relation Age of Onset Diabetes Paternal Grandfather Alzheimer's Disease Paternal Grandfather Arthritis Mother rheumatoid Diabetes Father Social History Tobacco Use Smoking status: Never Smokeless tobacco: Never Substance Use Topics Alcohol use: No Drug use: No Review of Systems Constitutional: Negative for activity change, appetite change, chills, fatigue and fever. HENT: Negative for congestion, ear discharge, ear pain, rhinorrhea, sinus pressure, sinus pain, sore throat and trouble swallowing. Eyes: Negative for pain, discharge and itching. Respiratory: Negative for cough, shortness of breath and wheezing. Cardiovascular: Negative for chest pain and palpitations. Gastrointestinal: Negative for abdominal pain, diarrhea, nausea and vomiting. Musculoskeletal: Negative for neck pain. Skin: Positive for color change and rash. Allergic/Immunologic: Negative for environmental allergies and food allergies. Neurological: Negative for headaches. Hematological: Negative for adenopathy. Does not bruise/bleed easily. Objective BP 133/79 Pulse 80 Temp 37.1 C (98.7 F) Resp 18 Wt 75.6 kg (166 lb 10.7 oz) LMP 09/13/2017 (Exact Date) SpO2 99% BMI 27.73 kg/m Physical Exam Constitutional: General: She is not in acute distress. Appearance: Normal appearance. She is not ill-appearing. HENT: Head: Normocephalic and atraumatic. Mouth/Throat: Mouth: Mucous membranes are moist. Eyes: General: Right eye: No discharge. Left eye: No discharge. Conjunctiva/sclera: Conjunctivae normal. Pupils: Pupils are equal, round, and reactive to light. Cardiovascular: Rate and Rhythm: Normal rate and regular rhythm. Pulses: Normal pulses. Heart sounds: Normal heart sounds. Pulmonary: Effort: Pulmonary effort is normal. No respiratory distress. Breath sounds: Normal breath sounds. No wheezing or rhonchi. Abdominal: General: Abdomen is flat. Palpations: Abdomen is soft. Musculoskeletal: General: Normal range of motion. Cervical back: Normal range of motion and neck supple. No tenderness. Skin: General: Skin is warm. Capillary Refill: Capillary refill takes less than 2 seconds. Findings: Rash present. No signs of injury. Rash is macular. Rash is not crusting. Comments: Warm erythematous irregular [place] like present on web of 1st and 2nd toe and dorsal aspect of foot measuring approximately 3 cm. No abscess No petechia -no drainage -no streaking -no clear demarcation Neurological: General: No focal deficit present. Mental Status: She is alert and oriented to person, place, and time. Psychiatric: Mood and Affect: Mood normal. Behavior: Behavior normal. Assessment and Plan ASSESSMENT/PLAN: 1. Cellulitis of right foot - ICD9: 682.7, ICD10: L03.115 -right foot pain, swelling and rash x 3 days -warm erythematous macular rash on right foot Denies trauma or injury, no xray indicated. - Begin treatment with Trimethoprim-sulfamethozazole (Bactrim) - Advised used of analgesics prn for pain -Follow up with PCP if symptoms persist or worsen Mayra Parkinson Student TEACHING PROVIDER (Physician/PA/SALES SPECIAL AGENT) NOTE OF PERSONAL INVOLVEMENT IN CARE: I have personally seen and examined the patient and performed the medical decision-making components. I have reviewed the Advanced Practice Registered Nurse (SALES SPECIAL AGENT) Student's documentation and verified the findings in the note as written. Any additions or changes are noted in bold/italics. Signature: Jeffy Haney Date: 08/30/2024 Time: 8:52 AM [facility] Discharge summary Author Mckayla Beckman [facility] January 31, 2023 8:10am Note Date/Time January 31, 2023 8:1 0am [facility] Medical Records Department [address] [place] [address] Instructions for Home/Discharge Instructions 01/31/23 [id number] MR#: [id number] Acct: [id number] Name: LITZY PORTILLO Rep #:[id number] : 1990 32 From: Mckayla Beckman CNM PCP: Dr. Chavez Devlin MD Status:ADM I N Discharge Instructions Diet Discharge Diet: No restrictions Activity May resume sexual activity in: 6-8 weeks (after seen by OB provider) Weight Bearing Status: Full weight bearing Dressing / Incision Call your doctor if you observe: Fever of 101 or Higher, Inability to urinate, Using more than 1 pad per hour (for more than 2 hours in a row or more), Shortness of breath, Dizziness, Chest pain and - (headache not controlled with tylenol, change in vision) Follow Up Care Test Results: Test results from this visit will be discussed in further detail at your follow- up appointment, if applicable. Discharge Plan Admission Admit Date/Time: 01/30/23 01:30 Primary Reason for Your Visit: Attending Provider: Chari Mg Primary Care Provider: Chavez Devlin Instructions Patient Instructions: After a Vaginal Discharge Orders/Prescriptions Prescriptions: No Action prenat.vits,monica,flb-rfxr-[id number] Tablet 1 tab PO DAILY Referrals / Follow Up: Chavez Devlin MD [Primary Care Provider] - Disposition Disposition (needs filled in before D/C Order can be placed): Home, Self Care 01/31/23 0810<Electronically signed by Mckayla Beckman CNM>Mckayla Beckman CNM CC: Dr. Chavez Devlin MD ~ Signed [facility] Work Phone: 1(785) 798-570003-21-2023 Progress note Author Mckayla [facility] January 31, 2023 8:09am Note Date/Time January 31, 2023 8:0 9am [facility] Medical Records Department [address] [place] [address] Progress Note - OBGYN 01/31/23 0804 MR#: [id number] Acct: [id number] Name: LITZY POTRILLO Rep #:[id number] : 1990 32 From: Mckayla Beckman CNM PCP: Dr. Chavez Devlin MD Status:ADM I N Location: [place] [address] Subjective Subjective Patient doing well without complaints. Tolerating PO. Ambulating and voiding without difficulty. Feeding well. Denies chest pain, shortness of breath, calf pain/swelling, fevers, chills, lightheadedness. Objective Data Objective Data Vital Signs: Vital Signs Temp Pulse Resp BP Pulse Ox O2 Del Method 97.8 F 88 16 122/80 H 100 Room Air 01/31/23 07:42 01/31/23 07:55 01/31/23 07:42 01/31/23 07:56 01/31/23 07:42 01/31/23 07:42 Oxygen Delivery Method Room Air Weight: 186 lb Body Mass Index (BMI) 30.9 Intake & Output: Intake and Output for Last 24 Hours 01/29/23 01/30/23 01/31/23 23:59 23:59 23:59 Intake Total 713.15 / 713.15 Output Total 1200 / 1200 Balance -486.85 / -486.85 Lab / Micro Data Attestation: I reviewed the patient's lab results. Result Diagrams: 01/30/23 02:05 ROS Constitutional Constitutional: Reports systems reviewed and no addt'l complaints, except as documented Cardiovascular Cardiovascular: Reports systems reviewed and no addt'l complaints, except as documented Respiratory/Chest Respiratory/Chest: Reports systems reviewed and no addt'l complaints, except as documented Gastrointestinal Gastrointestinal: Reports systems reviewed and no addt'l complaints, except as documented; Denies anorexia, constipation, diarrhea, heartburn or nausea Genitourinary Genitourinary: Reports systems reviewed and no addt'l complaints, except as documented; Denies burning urination or difficulty urinating Musculoskeletal Musculoskeletal: Reports systems reviewed and no addt'l complaints, except as documented Neurologic Neurologic: Reports systems reviewed and no addt'l complaints, except as documented Psychiatric Psychiatric: Reports systems reviewed and no addt'l complaints, except as documented; Denies anxiety or depression Physical Exam Const alert, oriented x3 and no apparent distress General Appearance: cooperative and comfortable Neck full ROM Chest inspection of chest normal Resp normal respiratory effort and normal air movement Effort and Inspection: able to speak in complete sentences GI normal to inspection, nondistended, normoactive bowel sounds, soft to palpation and non-tender external exam normal Extremity normal to inspection and full ROM Psych mental status grossly normal, thought process normal, cooperative and affect normal Assessment & Plan (1) Vaginal delivery: COMMENT: SM IAL girl Jiménez PLAN: s/p PPD # 1 1. routine post delivery care 2. breast feeding- support given 3. rh positive 4. rubella immune 01/31/23 0809 <Electronically signed by Mckayla Beckman CNM> Cosigner Signature (if applicable): CC: ~ Signed [facility] Work Phone: 1(128) 363-434903-20-[address] Mg [facility] January 30, 2023 4:13am Note Date/Time January 30, 2023 4:0 6am [facility] Medical Records Department [facility] [place] [address] Instructions for Home/Discharge Instructions 01/30/23 0406 MR#: [id number] Acct: [id number] Name: LITZY PORTILLO Rep #:[id number] : 1990 32 From: Chari randolph MD PCP: Dr. Chavez Devlin MD Status:ADM I N Discharge Instructions Diet Discharge Diet: No restrictions Activity Discharge Activity: Return to Normal Activity, May Drive, May Shower and May Take a Tub Bath (in 4 weeks) May resume sexual activity in: 6-8 weeks (after seen by OB provider) Weight Bearing Status: Full weight bearing Lifting Restrictions: none Dressing / Incision Call your doctor if you observe: Fever of 101 or Higher, Inability to urinate, Using more than 1 pad per hour (for more than 2 hours in a row or more), Shortness of breath, Dizziness, Chest pain and - (headache not controlled with tylenol, change in vision) Follow Up Care When: in 6 weeks for visit, call the office to make the appointment. If you had elevated blood pressures call the office to be seen within 1 week. Test Results: Test results from this visit will be discussed in further detail at your follow- up appointment, if applicable. Discharge Plan Admission Admit Date/Time: 01/30/23 01:30 Attending Provider: Chari Mg Primary Care Provider: Chavez Devlin Discharge Orders/Prescriptions Prescriptions: No Action prenat.vits,monica,eji-jqfx-kgfzs Tablet 1 tab PO DAILY Referrals / Follow Up: Chavez Devlin MD [Primary Care Provider] - Disposition Disposition (needs filled in before D/C Order can be placed): Home, Self Care 01/30/23412<Electronically signed by Chari Mg MD>Chari Mg MD CC: Dr. Chavez Devlin MD ~ Signed [facility] Work Phone: 1(213) 853-443803-20-2023 History and physical note Author Dr. 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 Chavez Devlin MD Status:ADM I N Location: [facility]304-1 HPI - General General Date of Admission: 01/30/23 HPI Narrative LITZY PORTILLO, is a 32 F who presents IAL delivers quick within 4 hours. Maternal Data Information LILLY Calculator Estimated Delivery Date Method Current WG Current Estimate 02/11/23 LMP (Certain) 38w 2d Other Estimates 02/08/23 Ultrasound #1 38w 5d PFSH PFSH Medical History Anxiety Melanoma Home Medications prenat.vits,monica,uwi-lfzd-tsjez 1 tab PO DAILY vitamin 06/17/19 [History Last Taken 02/04/20 08:00] Allergy/AdvReac Type Severity Reaction Status Date / Time No Known Allergies Allergy Verified 01/27/23 10:55 Family History Father Diabetes Colon cancer Surgical History s/p right ear surgery Social History adopted: No household members: spouse and children number of children: 1 current occupational status: employed current occupation: [employer] pets and animals: Yes pets and animals: dog(s) history of recent travel: No sexually active: Yes Smoking Status: Never smoker alcohol intake: former details: occasionally- not while substance use type: does not use well-balanced diet: daily or most days caffeine: No eating out: rarely or never during the past year weight has: remained stable what type of physical activity do you participate in: walking frequency: 1-2 times per week duration: 15-30 minutes/day alba/evangelical: L[employer] Day seatbelt use: always do you feel safe at home: Yes additional social history: Slishxq-Iggzib[employer]phyf[employer] 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 Date Name GA/Weeks Outcome Route Bth Weight Gen Labor Lgth Anesthesia Del Locatn Provider FOB 02/05/20 [place] 41 live - full term Male none [facility] Visit Details Expected Delivery Route/Plan Labor Preferences- CB/BF classes: no labor support person: Wilian labor intervention preferences: [] pain management options preferred: epidural cut cord/dad catch: yes, could love to catch again! : yes PP control planned: discussed discussed possible routes of delivery and associated risks: [] special requests: [] Plans Covid status: vaccinated, not boosted Flu vaccine: given Tdap vaccine: given Rhogam: NA LARC form signed: yes Problem list reviewed and updated with the most current plan of care details and appropriate orders placed. Relevant counseling for the gestational age provided. Continue routine care and follow up unless otherwise noted in visit notes/problem list details OB Flowsheet Initial Weight: Not Recorded Date -?-?-?-?-?-?-?-?-?-?-?-?- EGA Weight BP Urine Prot -?-?-?-?-?-?-?-?-?-?-?-?- Glucose FHR FuHt Pres Dilation -?-?-?-?--?-?-?-?-?-?-?-?- Effaced St Visit Note 07/12/22 -?-?-?-?-?-?-?-?-?-?-?-?- 9w 3d 176 lb 4 oz 120/70 -?-?-?-?-?-?-?-?-?-?-?-?- 175 -?-?-?-?-?-?-?-?-?-?-?-?- JV- CRL consiste nt with LMP. declines genetics. 08/12/22 -?-?-?-?-?-?-?-?-?-?--?-?- 13w 6d 172 lb 120/80 Negative -?-?-?-?-?-?-?-?-?-?-?-?- Negative 160 -?-?-?-?-?-?-?-?-?-?-?-?- SM- no vb crampi ng SM- had small episode spotti ng x 1, no crmaping 09/09/22 -?-?-?-?-?-?-?-?-?-?-?-?- 17w 6d 175 lb 6 oz 123/84 Nega tive -?-?-?-?-?-?-?-?-?-?-?-?- Negative 178 158 -?-?-?-?-?-?-?-?-?-?-?-?- JV- no lof, vagi nal bleeding, or cramping. normal labs reviewed 10/21/22 -?-?-?-?-?-?-?-?-?-?-?-?- 23w 6d 178 lb 4 oz 135/82 Nega tive -?-?-?-?-?-?-?-?-?-?-?-?- Negative 150 -?-?-?-?-?-?-?-?-?-?-?-?- JV- no lof, vagi nal bleeding, or dec fm. glucola drink ordered. no complaints. 11/09/22 -?-?-?-?-?-?-?-?-?-?-?-?- 26w 4d 179 lb 130/80 Negative -?-?-?-?-?-?-?-?-?-?-?-?- Negative 154 26 -?-?-?-?-?-?-?-?-?-?-?-?- MH-No Vb, LOF. [facility] -?-?-?-?-?-?-?-?-?-?-?-?- 28w 6d 179 lb 116/83 -?-?-?-?-?-?-?-?-?-?-?-?- 145 29 -?-?-?-?-?-?-?-?-?-?-?-?- SM- no vb lof go od fm no regular ctx 12/09/22 -?-?-?-?-?-?-?-?-?-?-?-?- 30w 6d 182 lb 149/82 121/83 Negative -?-?-?-?--?-?-?-?-?-?-?-?- Negative 147 30 -?-?-?-?-?-?-?-?-?-?-?-?- JV-no lof, vagin al bleeding, or dec fm. tdap today. 12/23/22 -?-?-?-?-?-?-?-?-?-?-?-?- 32w 6d 181 lb 8 oz 122/74 Nega tive -?-?-?-?-?-?-?-?-?-?-?-?- Negative 137 32 -?-?-?-?-?-?-?-?-?-?-?-?- LC- no lof/vb/ct x. good fm. no concerns. reviewed hx of elevated d-dimer without evidence of pe/dvt. reviewed s/sx of dvt. 01/06/23 -?-?-?-?-?-?-?-?-?-?-?-?- 34w 6d 181 lb 4 oz 124/86 Nega tive -?-?--?-?-?-?-?-?-?-?-?-?- Negative 132 33 -?-?-?-?-?-?-?-?-?-?-?-?- JV- no lof, vagi nal bleeding, or dec fm. no complaints today. normal D- dimer 01/13/23 -?-?-?-?-?-?-?-?-?-?-?-?- 35w 6d 183 lb 124/85 1+ -?-?-?-?-?-?-?-?-?-?-?-?- Negative 145 35 Cephalic -?-?-?-?-?-?-?-?-?-?-?-?- JV- +1 protein i n urine but likely dehydration. will send pr:cr and call if issues. vtx on bedside scan today. 01/20/23 -?-?-?-?-?-?-?-?-?-?-?-?- 36w 6d 182 lb 6 oz 133/86 Nega tive -?-?-?-?-?-?-?-?-?-?-?-?- Negative 120 37 Cephalic 1 -?-?-?-?-?-?-?-?-?-?-?-?- 70 -3 JV- no com plaints today. GBS collectd. 01/27/23 -?-?-?-?-?-?-?-?-?-?-?-?- 37w 6d 184 lb 4 oz 125/86 1+ -?-?-?-?-?-?-?-?-?-?-?-?- Negative 135 35 Cephalic 2 -?-?-?-?-?-?-?-?-?-?-?-?- 70 -1 JV- station dropped significantly making FH look lower. no lof ,vaginal bleeding, or dec fm. 01/30/23 -?-?-?-?-?-?-?-?-?-?-?-?- 38w 2d 186 lb 134/89 140/78 140/90 140/85 129/79 135/83 130/96 133/66 136/82 135/84 132/72 129/75 126/75 131/82 134/87 134/79 135/78 -?-?-?-?-?-?-?-?-?-?-?-?- -?-?-?-?-?-?-?-?-?-?-?-?- NST FHR Rate Baby A Baseline: 140 Variability:: Moderate Accelerations:: 15 x 15 Decelerations:: None NST Reactive:: Yes FHR Category:: Category I Uterine Activity:: q3-5 ROS Constitutional Constitutional: Reports systems reviewed and no addt'l complaints, except as documented ENT HEENT: Reports systems reviewed and no addt'l complaints, except as documented Cardiovascular Cardiovascular: Reports systems reviewed and no addt'l complaints, except as documented Respiratory/Chest Respiratory/Chest: Reports systems reviewed and no addt'l complaints, except as documented Gastrointestinal Gastrointestinal: Reports systems reviewed and no addt'l complaints, except as documented and nausea; Denies abdominal pain Genitourinary Genitourinary: Reports systems reviewed and no addt'l complaints, except as documented, contractions Details: present and frequency (regular ) and movement Details: present Musculoskeletal Musculoskeletal: Reports systems reviewed and no addt'l complaints, except as documented Integumentary Integumentary: Reports as per HPI Neurologic Neurologic: Reports systems reviewed and no addt'l complaints, except as documented Endocrine Endocrinology: Reports systems reviewed and no addt'l complaints, except as documented Vital Signs Vital Signs Vital Signs: 01/30/23 01:09 01/30/23 01:09 01/30/23 01:09 Temperature Temperature Source Pulse Rate 102 H Blood Pressure 134/89 H BP Systolic 134 BP Diastolic 89 Pulse Ox 99 01/30/23 01:09 01/30/23 01:13 01/30/23 01:13 Temperature Temperature Source Pulse Rate 87 101 H Blood Pressure BP Systolic BP Diastolic Pulse Ox 99 01/30/23 01:09 01/30/23 01:09 01/30/23 01:09 Temperature 98.2 F Temperature Source Tympanic Pulse Rate Blood Pressure BP Systolic BP Diastolic Pulse Ox 99 01/30/23 01:19 01/30/23 01:19 01/30/23 02:23 Temperature Temperature Source Pulse Rate 85 101 H Blood Pressure BP Systolic BP Diastolic Pulse Ox 99 01/30/23 02:23 01/30/23 02:28 01/30/23 02:28 Temperature Temperature Source Pulse Rate 91 Blood Pressure BP Systolic BP Diastolic Pulse Ox 100 100 01/30/23 02:30 01/30/23 02:30 01/30/23 02:32 Temperature Temperature Source Pulse Rate 74 Blood Pressure 140/78 H 140/90 H BP Systolic 140 140 BP Diastolic 78 90 Pulse Ox 01/30/23 02:33 01/30/23 02:33 01/30/23 02:37 Temperature Temperature Source Pulse Rate 99 Blood Pressure 140/85 H BP Systolic 140 BP Diastolic 85 Pulse Ox 100 01/30/23 02:38 01/30/23 02:38 01/30/23 02:39 Temperature Temperature Source Pulse Rate 77 Blood Pressure 129/79 H BP Systolic 129 BP Diastolic 79 Pulse Ox 98 01/30/23 02:39 01/30/23 02:43 01/30/23 02:43 Temperature Temperature Source Pulse Rate 76 99 Blood Pressure BP Systolic BP Diastolic Pulse Ox 92 01/30/23 02:43 01/30/23 02:43 01/30/23 02:48 Temperature Temperature Source Pulse Rate 94 87 Blood Pressure 135/83 H BP Systolic 135 BP Diastolic 83 Pulse Ox 01/30/23 02:48 03/20/23 02:52 01/30/23 02:53 Temperature Temperature Source Pulse Rate 84 Blood Pressure 130/96 H BP Systolic 130 BP Diastolic 96 Pulse Ox 99 01/30/23 02:53 01/30/23 02:58 01/30/23 02:58 Temperature Temperature Source Pulse Rate 88 Blood Pressure 133/66 H BP Systolic 133 BP Diastolic 66 Pulse Ox 96 01/30/23 02:59 01/30/23 02:59 01/30/23 02:59 Temperature Temperature Source Tympanic Pulse Rate 84 Blood Pressure BP Systolic BP Diastolic Pulse Ox 100 01/30/23 02:59 01/30/23 02:59 01/30/23 03:04 Temperature 97.1 F L Temperature Source Pulse Rate Blood Pressure 136/82 H BP Systolic 136 BP Diastolic 82 Pulse Ox 100 01/30/23 03:04 01/30/23 03:04 01/30/23 03:07 Temperature Temperature Source Pulse Rate 97 Blood Pressure 135/84 H BP Systolic 135 BP Diastolic 84 Pulse Ox 100 01/30/23 03:07 01/30/23 03:09 01/30/23 03:09 Temperature Temperature Source Pulse Rate 95 97 Blood Pressure BP Systolic BP Diastolic Pulse Ox 99 01/30/23 03:12 01/30/23 03:12 01/30/23 03:13 Temperature Temperature Source Pulse Rate 115 H Blood Pressure 132/72 H 129/75 H BP Systolic 132 129 BP Diastolic 72 75 Pulse Ox 01/30/23 03:13 01/30/23 03:14 01/30/23 03:14 Temperature Temperature Source Pulse Rate 90 97 Blood Pressure BP Systolic BP Diastolic Pulse Ox 99 01/30/23 03:17 01/30/23 03:17 01/30/23 03:19 Temperature Temperature Source Pulse Rate 84 90 Blood Pressure 126/75 H BP Systolic 126 BP Diastolic 75 Pulse Ox 01/30/23 03:19 01/30/23 03:19 01/30/23 03:19 Temperature Temperature Source Pulse Rate 92 Blood Pressure BP Systolic BP Diastolic Pulse Ox 96 94 01/30/23 03:23 01/30/23 03:24 01/30/23 03:24 Temperature Temperature Source Pulse Rate 118 H Blood Pressure 131/82 H BP Systolic 131 BP Diastolic 82 Pulse Ox 99 01/30/23 03:27 01/30/23 03:27 01/30/23 03:29 Temperature Temperature Source Pulse Rate 86 93 Blood Pressure 134/87 H BP Systolic 134 BP Diastolic 87 Pulse Ox 01/30/23 03:29 01/30/23 03:33 01/30/23 03:33 Temperature Temperature Source Pulse Rate 83 Blood Pressure 134/79 H BP Systolic 134 BP Diastolic 79 Pulse Ox 100 01/30/23 03:34 01/30/23 03:34 01/30/23 03:57 Temperature Temperature Source Pulse Rate 107 H Blood Pressure 135/78 H BP Systolic 135 BP Diastolic 78 Pulse Ox 99 01/30/23 03:57 01/30/23 04:01 01/30/23 04:01 Temperature Temperature Source Pulse Rate 96 92 Blood Pressure BP Systolic BP Diastolic Pulse Ox 100 01/30/23 03:57 Temperature 97.6 F L Temperature Source Pulse Rate Blood Pressure BP Systolic BP Diastolic Pulse Ox Weight Weight: 186 lb Body Mass Index (BMI) 30.9 Physical Exam Const alert, oriented x3 and healthy appearing Constitutional Narrative: uncomfortable with contractions HEENT normocephalic and moist oral mucous membranes Head and Scalp: atraumatic Neck full ROM, no lymphadenopathy, supple and thyroid normal General: trachea midline Thyroid: thyroid normal Lymph Lymphatic: no lymphadenopathy noted Chest inspection of chest normal Resp normal respiratory effort Cardio regular rate GI normal to inspection, nondistended, normoactive bowel sounds, soft to palpation and non-tender Inspection: gravid external exam normal Bimanual Exam - Vag & Uterus: uterus non-tender Manual OB Exam: estimated gestational size appropriate, presentation cephalic, dilated, effaced and station Extremity normal to inspection General Extremity: Negative for edema Skin no rashes or lesions noted Neuro deep tendon reflexes 2+ bilaterally Motor Exam: strength 5/5 throughout and clonus absent Psych mental status grossly normal Labs Labs Labs: Blood Type O POSITIVE Antibody Screen NEGATIVE Hct 37.1 % (37-47) Hgb 12.0 g/dL (12.0-15.0) Obstetrics US Syphilis Total Ab Non-reactive Rubella IgG Antibody Reactive (Nonreactive) Hep Bs Antigen Non-Reactive (Nonreactive) Chlamydia DNA (LIBBY) Negative (Negative) Neisseria gonorrhoeae DNA (LIBBY) Negative (Negative) HIV 1&2 Antibody Non-Reactive (Nonreactive) Glucose 1 Hr 50 gm 103 mg/dL (70-140) Rhogam given: No Miscellaneous Test Assessment & Plan (1) : QUALIFIERS: Weeks of gestation: 37 weeks Qualified Code(s): Z3A.37 - 37 weeks gestation of COMMENT: GBS neg, anatomy nl, declined NIPT & Carrier testing (2) Supervision of normal : COMMENT: [id number], LILLY 02/11/23, PC Chay, Spouse Wilian (3) Anxiety: COMMENT: no meds, counseling encouraged; stable (4) Active labor at term: PLAN: Plan Patient presents IAL, plan expectant management for , pitocin/AROM PRN if needed. Pain management: plans epidural. GBS neg. Management of any complications: none I have reviewed the [facility] and made any clinically relevant updates. 01/30/230 <Electronically signed by Chari Mg MD> Cosigner Signature (if applicable): CC: Dr. Chari Mg MD; Dr. Chavez Devlin MD~ Signed [facility] Work Phone: 1(996) 787-879203-20-2023 Procedure [facility] 07-12-2022 NotePap Smear Specimen AdequacyAugust 2021 4:08pmComment. Satisfactory for evaluation. Endocervical and/or squamous metaplasticcells (endocervical component)are present.[facility] A#[id number] Alliance Community Hospital Work Phone: Comment on above:Satisfactory for evaluation. 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 resolved Anxiety acute acute Supervision of normal [facility] Work Phone: Evaluation note* Diagnosis Onset Date Resolution Status Anxiety acute acute Supervision of normal acute Anxiety acute acute Supervision of normal acute Anxiety acute acute Supervision of normal acute Anxiety acute acute Supervision of normal acute [facility] Work Phone: evaluation note* Diagnosis Onset Date Resolution Status Anxiety acute acute Supervision of normal acute Anxiety acute acute Supervision of normal acute Anxiety acute acute Supervision of normal acute Anxiety acute acute Supervision of normal acute Anxiety acute acute Supervision of normal acute Anxiety acute acute Supervision of normal acute Anxiety acute acute Supervision of normal acute [facility] Work Phone: evaluation note* Diagnosis Onset Date Resolution Status Anxiety acute acute Supervision of normal acute Anxiety acute acute Supervision of normal acute Anxiety acute acute Supervision of normal acute Anxiety acute acute Supervision of normal acute Anxiety acute acute Supervision of normal acute Anxiety acute acute Supervision of normal acute Anxiety acute acute Supervision of normal acute Anxiety acute acute Supervision of normal acute Anxiety acute acute Supervision of normal acute [facility] Work Phone: evaluation note* Diagnosis Onset Date Resolution Status Anxiety resolved resolved Supervision of normal resolved Anxiety resolved resolved Supervision of normal resolved Anxiety resolved resolved Supervision of normal resolved Anxiety resolved resolved Supervision of normal resolved Anxiety resolved resolved Supervision of normal resolved Anxiety resolved resolved Supervision of normal resolved Anxiety resolved resolved Supervision of normal resolved Anxiety resolved resolved Supervision of normal resolved Anxiety resolved resolved Supervision of normal resolved Vaginal delivery acute Active labor at term resolve d Anxiety resolved resolved Supervision of normal resolved [facility] Work Phone: evaluhzrqw note* Diagnosis Cellulitis of right foot- Primary Cellulitis and abscess of foot, except toes documented in this encounter [facility] for referral (narrative)No reason for referral information availableArroy[facility] Work Phone: Chief Complaint and Reason for Visit Chief Complaint iud removal VIABILITY NOB LMP 05/06/2022 Reason for Visit Encounter for IUD re moval Anxiety Personal history of melanoma in-situ Supervision of normal Chief Complaint iud removal VIABILITY NOB LMP 05/06/2022 13 WK OB Reason for Visit Encounter for IUD re moval Anxiety Supervision of normal Personal history of melanoma 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 Anxiety Supervision of normal Chief Complaint 13 WK OB 17 WK OB CHEST PAIN 24wk ob 28wk ob / glucose Reason for Visit Anxiety Supervision of normal Anxiety Supervision of normal Anxiety Supervision of normal Anxiety Supervision of normal Chief Complaint 24wk ob 28wk ob / glucose 30 WK OB 32 WK OB 34 WK OB 36 WK OB 37 WK OB Reason for Visit Anxiety Supervision of normal Anxiety Supervision of normal Anxiety Supervision of normal Anxiety Supervision of normal Anxiety Supervision of normal Anxiety Supervision of normal Anxiety Supervision of normal Chief Complaint 24wk ob 28wk ob / glucose 30 WK OB 32 WK OB 34 WK OB 36 WK OB 37 WK OB 38 WK OB 39 WK OB Reason for Visit Anxiety Supervision of normal Anxiety Supervision of normal Anxiety Supervision of normal Anxiety Supervision of normal Anxiety Supervision of normal Anxiety Supervision of normal Anxiety Supervision of normal Anxiety Supervision of normal Anxiety Supervision of normal Chief Complaint 24wk ob 28wk ob / glucose 30 WK OB 32 WK OB 34 WK OB 36 WK OB 37 WK OB 38 WK OB 39 WK OB VAG VAG VAG Reason for Visit Anxiety Supervision of normal Anxiety Supervision of normal Anxiety Supervision of normal Anxiety Supervision of normal Anxiety Supervision of normal Anxiety Supervision of normal Anxiety Supervision of normal Anxiety Supervision of normal Anxiety Supervision of normal Vaginal delivery Active labor at term Anxiety Supervision of normal Chief Complaint Admit Date IUD REMOVAL (MIRENA) February 28, 2025 9: 05am Annual (TIE PULLER) April 21, 2025 9:10a m Reason for Visit Admit Date Encounter for IUD removal February 28 9:05am Encounter for routine gynecological exam ination April 21, 2025 9:10am Chief Complaint Admit Date IUD REMOVAL (MIRENA) February 28, 2025 9: 05am Annual (TIE PULLER) April 21, 2025 9:10a m OB, dysuria May 27, 2025 10:1 9am Family History Relationship Condition Age at Onset Recorded Date/T meena father Diabetes mellitus Unknown Malignant neoplasm of colon Unknown Advance Directives Advance Directive Response Recorded Date/ Time Living Will No February 05, 2020 4:12am Power of Welder Assistant No February 04 4:12am Advance Directive Response Recorded Date/ Time Living Will No September 20 6:53pm Power of Welder Assistant No September 20, 2022 6:53pm Advance Directive Response Recorded Date/ Time Living Will No September 20 7:53pm Power of Welder Assistant No September 20, 2022 7:53pm Advance Directive Response Recorded Date/ Time Living Will No January 30, 2023 1:51am Power of Welder Assistant No January 30 1:51am Summary Purpose Additional Source Comments Goals (unrecognized section and content) Goals may be documented in a n alternate sectionGoals may be documented in an alternate sectionGoals may be documented in an alternate sectionGoals may be documented in an alternate sectionGoals may be documented in an alternate sectionGoals may be documented in an alternate sectionGoals may be documented in an alternate sectionGoals may be documented in an alternate section INFORMATION SOURCE (unrecogn ized section and content) DATE CREATED AUTHOR 09/24/2022 [facility] DATE CREATED AUTHOR AUTHOR'S ORGANIZ ATION 09/01/2024 [facility] DATE CREATED AUTHOR AUTHOR'S ORGANIZ ATION 04/28/2025 [facility] Care Teams (unrecognized sec tion and content) Team Status: Active Member Role Status Dates Dr. Chavez Devlin MD Primary Care Provider Active Team Status: Inactive Member Role Status Dates Dr. Chavez Devlin MD Primary Care Provider, Referring Provider Active Dr. Akiko Ruelas DO Attending Provider Activ e Team Status: Inactive Member Role Status Dates Dr. Chavez Devlin MD Primary Care Provider, Referring Provider Active Avelina Goodson TRAVEL REGISTERED NURSE PACU, TRAVEL REGISTERED NURSE PACU-C Attending Provider Active Team Status: Inactive Member Role Status Dates Dr. Chavez Devlin MD Primary Care Provider, Referring Provider Active Dr. Chari Mg MD Attending Provider Active Team Status: Inactive Member Role Status Dates Dr. Chaevz Devlin MD Primary Care Provider, Referring Provider Active Trinity Jiménez CNM Attending Provider Active Team Status: Inactive Member Role Status Dates Dr. Chavez Devlin MD Primary Care Provider Active Dr. Akiko Ruelas DO Attending Provider, Refe rring Provider Active Team Status: Inactive Member Role Status Dates Dr. Chavez Devlin MD Primary Care Provider Active Dr. Akiko Ruelas DO Attending Provider Activ e Team Status: Active Member Role Status Dates Dr. Chavez Devlin MD Primary Care Provider Active Dr. Chari Mg MD Admit Provid er, Attending Provider, Referring Provider, Other Provider Active Team Status: Active Member Role Status Dates Dr. Chavez Devlin MD Primary Care Provider Active Dr. Chari Mg MD Admit Provid er, Referring Provider, Other Provider Active Mckayla Beckman CNM Attending Provider Active Team Status: Inactive Member Role Status Dates Dr. Chavez Devlin MD Primary Care Provider Active Dr. Chari Mg MD Admit Provid er, Attending Provider, Referring Provider Active Supervisor Webbing Relationship Specialty Start Date End Date Chavez Devlin MD [address] [place], [place] [id number] PCP - General Family Medicine 07/06/15 Supervisor Webbing Relationship Specialty Start Date End Date Chavez Devlin MD [address] [place], [place] [id number] PCP - General Family Medicine 07/06/15 Team Status: Inactive Member Role Status Dates Dr. Chavez Devlin MD Primary Care Provider Active Start: February 28, 2025 End: February 28, 2025 Dr. Chavez Devlin MD Referring Provider Active Start: February 28, 2025 End: February 28, 2025 Dr. Chari Mg MD Attending Provider Active Start: February 28, 2025 End: February 28, 2025 Team Status: Inactive Member Role Status Dates Dr. Chavez Devlin MD Primary Care Provider Active Start: April 21, 2025 End: April 21, 2025 Dr. Chavez Devlin MD Referring Provider Active Start: April 21, 2025 End: April 21, 2025 Avelina Goodson TRAVEL REGISTERED NURSE PACU, TRAVEL REGISTERED NURSE PACU-C Attending Provider Active Start: April 21, 2025 End: April 21, 2025 Team Status: Inactive Member Role Status Dates Dr. Chavez Devlin MD Primary Care Provider Active Start: April 21, 2025 End: April 21, 2025 Avelina Goodson TRAVEL REGISTERED NURSE PACU, TRAVEL REGISTERED NURSE PACU-C Attending Provider Active Start: April 21, 2025 End: April 21, 2025 Avelina Goodson TRAVEL REGISTERED NURSE PACU, TRAVEL REGISTERED NURSE PACU-C Referring Provider Active Start: April 21, 2025 End: April 21, 2025 Team Status: Active Member Role/Relationship Status Dates Dr. Chavez Devlin MD Primary Care Provider Active Team Status: Inactive Member Role/Relationship Status Dates Dr. Chavez Devlin MD Primary Care Provider Active Start: February 28, 2025 End: February 28, 2025 Dr. Chavez Devlin MD Referring Provider Active Start: February 28, 2025 End: February 28, 2025 Dr. Chari Mg MD Attending Provider Active Start: February 28, 2025 End: February 28, 2025 Team Status: Inactive Member Role/Relationship Status Dates Dr. Chavez Devlin MD Primary Care Provider Active Start: April 21, 2025 End: April 21, 2025 Dr. Chavez Devlin MD Referring Provider Active Start: April 21, 2025 End: April 21, 2025 Avelina Goodson TRAVEL REGISTERED NURSE PACU, TRAVEL REGISTERED NURSE PACU-C Attending Provider Active Start: April 21, 2025 End: April 21, 2025 Team Status: Inactive Member Role/Relationship Status Dates Dr. Chavez Devlin MD Primary Care Provider Active Start: April 21, 2025 End: April 21, 2025 Avelina Goodson TRAVEL REGISTERED NURSE PACU, TRAVEL REGISTERED NURSE PACU-C Attending Provider Active Start: April 21, 2025 End: April 21, 2025 Avelina Goodson TRAVEL REGISTERED NURSE PACU, TRAVEL REGISTERED NURSE PACU-C Referring Provider Active Start: April 21, 2025 End: April 21, 2025 Team Status: Inactive Member Role/Relationship Status Dates Dr. Chavez Devlin MD Primary Care Provider Active Start: May 27, 2025 End: May 27, 2025 Dr. Chavez Devlin MD Referring Provider Active Start: May 27, 2025 End: May 27, 2025 Avelina Goodson TRAVEL REGISTERED NURSE PACU, TRAVEL REGISTERED NURSE PACU-C Attending Provider Active Start: May 27, 2025 End: May 27, 2025 Source Comments (unrecognize d section and content) In the event this informatio n is protected by the Federal Confidentiality of Alcohol and Drug Abuse Patient Records regulations: The Federal rules restrict any use of the information to criminally investigate or prosecute any alcohol or drug abuse patient.[facility] the event this information is protected by the Federal Confidentiality of Alcohol and Drug Abuse Patient Records regulations: The Federal rules restrict any use of the information to criminally investigate or prosecute any alcohol or drug abuse patient.[facility] Reason for Visit (unrecogniz ed section and content) Reason Comments Rash In between first and second toes on R foot x3 days Reason Comments Foot Pain (Midfoot) FOR RECORDS PERTAINING TO PATIENTS WHO ARE OR HAVE BEEN ENROLLED IN A CHEMICAL DEPENDENCY/SUBSTANCEABUSE PROGRAM, SOME INFORMATION MAY BE OMITTED. This clinical summary was aggregated from multiple sources. Caution should be exercised in using it in the provision of clinical care. This summary normalizes information from multiple sources, and as a consequence, information in this document may materially change the coding, format and clinical context of patient data. In addition, data may be omitted in some cases. CLINICAL DECISIONS SHOULD BE BASED ON THE PRIMARY CLINICAL RECORDS. [facility]. provides no warranty or guarantee of the accuracy or completeness of information in this document.
--- OUTSIDE RECORDS SUMMARY | 2025-05-27 21:20 | XMS RPT_ITS | CCD ---
Author Organization [facility] CliniSyky Care Team Providers Care Security System Installer Name Role Phone Dr. Chavez Devlin Primary Care Provider [place], Dr. Crowell Referring Provider Dr. Akiko Ruelas Attending Provider [phone] Dr. Chari Mg Attending Provider [phone] CHARI MG [facility]erring [facility] MELVI GUADARRAMA Attending Unavailable CHAVEZ DEVLIN [...] Chari Mg Attending Provider [phone] ROBERT Jiménez Attending Provider [place], Dr. Crowell Primary Care [...] Marce EDWARDS, Dr. Marcelino Attending Provider [phone] Kellee ADOLESCENT COUNSELOR-C, Avelina Attending Provider Kellee ADOLESCENT COUNSELOR-C, Avelina Referring Provider Kellee ADOLESCENT COUNSELOR, Avelina Attending Unavailable [place] Referring Unavailable [facility] Chavez Primary Care Unavailable Kellee ADOLESCENT COUNSELOR, Avelina Attending Unavailable Kellee ADOLESCENT COUNSELOR, Avelina Referring Unavailable [place] Primary [place] Unavailable [facility] Chavez Primary Care Unavailable Nader Monk Attending Unavailabl e Chari Mg Attending Unavailable [facility] Referring Unavailable [facility] Unavailable Medications Current Medications Medication Drug Class(es) Dates Sig (Normalized) Sig (Original) docosahexaenoic acid 200 mg oral capsule (1 source) Start: 05-27-2025 Docosahexaenoic Acid ( Dha) 200 mg capsule Active mg PO May 27, 2025 12:00am [place] (Nk) (2 sources) Start: 02-28-2025 [place] (Nk) Active February 28, 2025 12:00am Prenat.Vits,Monica,Min-I vamshi-Folic (6 sources) Start: 06-17-2019 take 1 tablet by mouth once daily Prenat.Vits,Monica,Min- Iron-Folic Active 1 TABLET PO DAILY June 16, 2019 11:00pm Start: 06-17-2019 take 1 tablet by cande th once daily Prenat.Vits,Monica,Wjw-Jfqd-Asuim Active 1 TABLET PO DAILY June 17, [...] 2019 1:00am June 17, 2019 3:07pm levonorgestrel 0.715261 mg/hr intrauterine system (12 sources) Progestin, Progestin-containi [...] start day 1 of menstrual cycle Prenat.Vits,Monica,Mi j-Gqca-Szjgd tablet (3 sources) Start: 06-17-2019 End: 04-05-2024 Prenat.Vits,Monica,Mi r-Mpvs-Dqyqt tablet Discontinued 1 {tbl} PO DAILY June 17, 2019 12:00am April 05, 2024 9:40am vitamin Start: 06-17-2019 End: 04-05-2024 Prenat.Vits,Monica,Cdo-Kjbs-Xcq ic tablet Discontinued 1 {tbl} PO DAILY [...] on above: SM IAL girl Khanh ins [id number], LILLY 02/11/23, PC Chay, Spouse Wilian GBS [...] APTIMA 16/18,45on 04-22-2025 ADEQ Comment Normal . [facility] Comment on above: Order Comment: Speci men Comment: [id number] Specimen Comment: No. of containers..01 ThinPrep Vial Result Comment: Sati sfactory for evaluation. No endocervical component is identified. Performed By: #### L 7400.0280 #### [facility] [address] [place], [address] COMM . Normal . [facility] Comment on above: Order Comment: Speci men Comment: [id number] Specimen Comment: No. of containers..01 ThinPrep Vial Performed By: #### L 7400.0280 #### [facility] [address] [place], [address] COMMENT Comment Normal . [facility] Comment on above: Order Comment: Speci men Comment: [id number] Specimen Comment: No. of containers..01 ThinPrep Vial Result Comment: This liquid based ThinPrep(R) pap test was screened with the use of an image guided system. Performed By: #### L 7400.0280 #### [facility] [address] [place], [address] DIAG Comment Normal . [facility] Comment on above: Order Comment: Speci men Comment: [id number] Specimen Comment: No. of containers..01 ThinPrep Vial Result Comment: NEGA TIVE FOR INTRAEPITHELIAL LESION OR MALIGNANCY. Performed By: #### L 7400.0280 #### [facility] [address] [place], [address] HPV APTIMA, HR Negative Normal Negative [facility] Comment on above: Order Comment: Speci men Comment: [id number] Specimen Comment: No. of containers..01 ThinPrep Vial Result Comment: This nucleic acid amplification test detects fourteen high- risk HPV types (16,18,31,33,35,39,45,51,52,56,58,59,66,68) without differentiation. Performed By: #### L 7400.0280 #### [facility] [address] [place], [address] HPV Kelsi Rfx Comment Normal . [facility] Comment on above: Order Comment: Speci men Comment: [id number] Specimen Comment: No. of containers..01 ThinPrep Vial Result Comment: Crit eria not met, HPV Genotype not performed. Performed at: - [address] [id number] As400 Operator: Colleen Rose MD, Phone: [phone] Performed at: = - [facility] [address] [facility], [place] [id number] [place] Operator: Colleen Rose MD, Phone: [phone] Performed By: #### L 7400.0280 #### [facility] [address] [place], [place], [id number] PAPSMR Comment Normal . [facility] Comment on above: Order Comment: Speci men Comment: [id number] Specimen Comment: No. of containers..01 ThinPrep Vial Result Comment: The Pap smear is a screening test designed to aid in the detection of premalignant and malignant conditions of the uterine cervix. It is not a diagnostic procedure and should not be used as the sole means of detecting cervical cancer. Both false-positive and false-negative reports do occur. Performed By: #### L 7400.0280 #### [facility] [address] [place], [place], [id number] PERFORM Comment Normal . [facility] Comment on above: Order Comment: Speci men Comment: [id number] Specimen Comment: No. of containers..01 ThinPrep Vial Result Comment: Tres Hodgson Hematology Specialist (ASCP) Performed By: #### L 7400.0280 #### [facility] [address] [place], [place], [address] Cervical or vaginal specimen microscopic examination by liquid based cytology (reportOrdered By: Avelina Goodson on 04-21-2025 Cytology report Cyto stain.thin prep Doc (Cvx/Vag) Comment . [facility] Comment on above: Criteria not met, HP V Genotype not performed.Performed at: - [address], [place] [id number] Director: Colleen Rose MD, Phone: [phone] at: =G - [facility] [address] [place]it [place] [id number] Director: Colleen Rose MD, Phone: [phone] Cervical or vagninal specime n microscopic examination by cytology stain (reported asOrdered By: Avelina Goodson on 04-21-2025 Cytology report Cyto stain Doc (Cvx/Vag) Comment . [facility] Comment on above: The Pap smear [...] DNA Probe+sig amp Ql (Cvx) Negative Negative [facility] Comment on above: This nucleic acid am plification test detects fourteen high- risk HPV types (16,18,31,33,35,39,45,51,52,56,58,59,66,68)without differentiation. Laboratory - CytologyOrdered By: Avelina Goodson on 04-21-2025 Hematology Specialist Cyto stain Nom (Cvx/Vag) [ID] Comment . [facility] Comment on above: Miguel Hodgson, Cyto logist (ASCP) Laboratory - Miscellaneous t estsOrdered By: Avelina Goodson on 04-21-2025 Service comment (Unsp spec) [Interp] . . [facility] No Panel InformationOrdered By: Avelina Goodson on 04-21-2025 Pap Smear Specimen Adequacy Comment . [facility] Comment on above: Satisfactory for durga luation. No endocervical component is identified. 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 Normal [facility] Manager Market Research Office Visit Reporton 02-28-2025 Manager Market Research Office Visit Report [facility] [address], [address] [place] [address] OFFICE VISIT Date of Service: 02/28/25 MR#: [id number] Acct: [id number] Name: LITZY PORTILLO Rep #: [id number] : 1990 Provider: Dr. Chari proctor MD Age/Sex: 34/F [place] [facility] [place] Signed with Addenda ADDENDUM by Dr. 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 Chavez Devlin MD Status:DEP ER Location: ED HPI History of Present Illness Chief Complaint: Cellulitis Narrative Narrative: Chief complaint and HPI: Right foot cellulitis. 33-year-old female presents for evaluation of right foot cellulitis. Patient states that she went to [place] couple days ago and noticed redness at [...] intact Psych: Cooperative, appropriate mood and affect PFSCOX MONETT Medical History Vaginal delivery Melanoma Anxiety Home [...] 2 current occupational status: employed current occupation: 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 [place] ordered for pain. X-ray of the right [...] 09/01/24 10:35 (more content not included)... Normal [facility] Foot min 3 Viewson 4 Foot min 3 Views [facility] [address] [place] [address] Foot min 3 Views MR#: [id number] Acct: [id number] Name: LITZY PORTILLO Rep #: [id number] : 1990 F 33 From: Beth rodriguez MD PCP: Dr. Chavez Devlin MD Status: REG ER Study: Foot min 3 Views Date of Exam: 09/01/24 Exam# [id number] Ordering Dr: Nader Monk DO [id number] HISTORY: Pain. TECHNIQUE: XR Foot Min 3 [...] Nader Monk DO; Dr. Chavez Devlin MD Insulation Inspector: [facility] Office Visit (UCWSTR ) -------- LITZY PORTILLO ([id number]) 1990 F Date Time Provider Department 08/29/24 6:00 PM JEFFY HANEY [facility] During your visit today, we recorded the following information about you: Temperature Pulse Respiration Blood pressure 98.7 degrees 80/minute 18/minute 133/79 Weight 75.6 kg Jeffy Haney APRN.WATER USE INSPECTOR 08/30/2024 8:54 AM Signed This note was [...] history is provided by the patient. No speech language pathologist assistant was used. Rash This is a new [...] irregular cir (more content not included)... Normal [facility] Absolute lymphocyte countOrd ered By: Dr. Mg on 01-30-2023 Lymphocytes Auto (Unsp spec) [#/Vol] 1.95 10*3/uL 0.83-4.51 [facility] Basophil percentageOrdered B y: Dr. Mg on 01-30-2023 Basophils/100 WBC (Bld) 0.8 % 0-1 [facility] Eosinophils/100 WBC (Bld) 0.7 % 0-5 [facility] Neutrophils (Bld) [#/Vol] 5.6 10*3/uL 2.0-7.7 [facility] Neutrophils/100 WBC (Bld) 66.8 % 47-70 [facility] WBC (Bld) [#/Vol] 8.4 10*3/uL 4.4-11.0 [facility] Blood erythrocytes count (nu mber/volume)Ordered By: Dr. Mg on 01-30-2023 RBC (Bld) [#/Vol] 4.14 10*6/uL 4.2-5.4 [facility] Blood hemoglobin measurement (mass/volume)Ordered By: Dr. Mg on 01-30-2023 Hemoglobin (Bld) [Mass/Vol] 12.0 g/dL 12.0-15.0 [facility] Blood lymphocytes/100 leukoc ytesOrdered By: Dr. Mg on 01-30-2023 Lymphocytes/100 WBC (Bld) 23.2 % 19-41 [facility] Blood monocytes/100 leukocyt esOrdered By: Dr. Mg on 01-30-2023 Monocytes/100 WBC (Bld) 7.7 % 0-10 [facility] Blood platelet mean volumeOr dered By: Dr. Mg on 01-30-2023 Platelet mean volume (Bld) [Entitic vol] 12.5 fL 6.2-12.0 [facility] Determination of erythrocyte mean corpuscular volume (MCV)Ordered By: Dr. Mg on 01-30-2023 MCV (RBC) [Entitic vol] 89.6 fL 81-99 [facility] Hematocrit Auto (Bld) [Volum e fraction]Ordered By: Dr. Mg on 01-30-2023 Hematocrit (Bld) [Volume fraction] 37.1 % 37-47 [facility] - Hematology and Cell countsOrdered By: Dr. Mg on 01-30-2023 Erythrocyte distribution width (RBC) [Entitic vol] 41.8 fL 35.1-43.9 [facility] Erythrocyte distribution width (RBC) [Ratio] 12.8 % 11.6-14.6 [facility] Immature granulocytes/100 WBC (Bld) 0.800 % 0.0-0.9 [facility] Comment on above: IG% - Immature Granu locytes (promyelocytes, myelocytes and metamyelocytes) > 1% indicates that a LEFT SHIFT is Present. MCH (RBC) [Entitic mass] 29.0 pg 27.0-32.0 [facility] Nucleated RBC/100 WBC (Bld) [Ratio] 0 % 0-5 [facility] MCHC Auto (RBC) [Mass/Vol]Or dered By: Dr. Mg on 01-30-2023 MCHC (RBC) [Mass/Vol] 32.3 g/dL 32-36 [facility] Platelets bldOrdered By: Dr. Mg on 01-30-2023 Platelets (Bld) [#/Vol] 148 10*3/uL 150-450 [facility] Serum Treponema species anti body detectionOrdered By: Dr. Mg on 01-30-2023 Treponema sp Ab Ql (S) Non-Reactive [facility] - Chemistry and C hemistry - challengeon 01-27-2023 Glucose Ql (U) Negative [facility] - Urinalysison Protein Ql (U) 1+ [facility] No Panel InformationOrdered By: Dr. Hobbs on 01-23-2023 Group B Streptococcus Culture Group B Beta Streptococcus is not isolated. [facility] - Chemistry and C hemistry - challengeon 01-20-2023 Glucose Ql (U) Negative [facility] - Urinalysison Protein Ql (U) Negative [facility] - Chemistry and C hemistry - challengeon 01-13-2023 Glucose Ql (U) Negative [facility] - Urinalysison Protein Ql (U) 1+ [facility] Urine creatinine measurement (mass/volume)Ordered By: Dr. Hobbs on 01-13-2023 Creatinine (U) [Mass/Vol] 596.00 mg/dL NO RANGE EST. [facility] Urine protein measurement (m ass/volume)Ordered By: Dr. Hobbs on 01-13-2023 Protein (U) [Mass/Vol] 78.5 mg/dL 0.0-11.8 [facility] Urine protein/creatinine mas s ratioOrdered By: Dr. Hobbs on 01-13-2023 Protein/Creatinine (U) [Mass ratio] 132 mg/g CRE 0-200 [facility] - Chemistry and C hemistry - challengeon 01-06-2023 Glucose Ql (U) Negative [facility] - Urinalysison Protein Ql (U) Negative [facility] - Chemistry and C hemistry - challengeon 12-23-2022 Glucose Ql (U) Negative [facility] - Urinalysison Protein Ql (U) Negative [facility] - Chemistry and C hemistry - challengeon 12-09-2022 Glucose Ql (U) Negative [facility] - Urinalysison Protein Ql (U) Negative [facility] Absolute lymphocyte countOrd ered By: Dr. Hobbs on 11-09-2022 Lymphocytes Auto (Unsp spec) [#/Vol] 1.33 10*3/uL 0.83-4.51 [facility] Basophil percentageOrdered B y: Dr. Hobbs on 11-09-2022 Basophils/100 WBC (Bld) 0.4 % 0-1 [facility] Eosinophils/100 WBC (Bld) 1.2 % 0-5 [facility] Neutrophils (Bld) [#/Vol] 5.4 10*3/uL 2.0-7.7 [facility] Neutrophils/100 WBC (Bld) 73.9 % 47-70 [facility] WBC (Bld) [#/Vol] 7.3 10*3/uL 4.4-11.0 [facility] Blood erythrocytes count (nu mber/volume)Ordered By: Dr. Hobbs on 11-09-2022 RBC (Bld) [#/Vol] 4.10 10*6/uL 4.2-5.4 [facility] Blood hemoglobin measurement (mass/volume)Ordered By: Dr. Hobbs on 11-09-2022 Hemoglobin (Bld) [Mass/Vol] 12.8 g/dL 12.0-15.0 [facility] Blood lymphocytes/100 leukoc ytesOrdered By: Dr. Hobbs on 11-09-2022 Lymphocytes/100 WBC (Bld) 18.2 % 19-41 [facility] Blood monocytes/100 leukocyt esOrdered By: Dr. Hobbs on 11-09-2022 Monocytes/100 WBC (Bld) 5.6 % 0-10 [facility] Blood platelet mean volumeOr dered By: Dr. Hobbs on 11-09-2022 Platelet mean volume (Bld) [Entitic vol] 10.8 fL 6.2-12.0 [facility] Determination of erythrocyte mean corpuscular volume (MCV)Ordered By: Dr. Hobbs on 11-09-2022 MCV (RBC) [Entitic vol] 91.2 fL 81-99 [facility] Gestational diabetes screen 1-hour screen with 50g oral glucose loadOrdered By: Dr. Hobbs on 11-09-2022 Glucose 1 Hr post 50 g glucose PO [Mass/Vol] 103 mg/dL 70-140 [facility] HIV 1 and HIV-2 antibody ass ay with HIV-1 p24 antigen detectionOrdered By: Dr. Hobbs on 11-09-2022 HIV 1+2 Ab+HIV1 p24 Ag IA Ql Non-Reactive Nonreactive [facility] Hematocrit Auto (Bld) [Volum e fraction]Ordered By: Dr. Hobbs on 11-09-2022 Hematocrit (Bld) [Volume fraction] 37.4 % 37-47 [facility] - Chemistry and C hemistry - challengeon 11-09-2022 Glucose Ql (U) Negative [facility] - Hematology and Cell countsOrdered By: Dr. Hobbs on 11-09-2022 Erythrocyte distribution width (RBC) [Entitic vol] 43.2 fL 35.1-43.9 [facility] Erythrocyte distribution width (RBC) [Ratio] 13.2 % 11.6-14.6 [facility] Immature granulocytes/100 WBC (Bld) 0.700 % 0.0-0.9 [facility] Comment on above: IG% - Immature Granu locytes (promyelocytes, myelocytes and metamyelocytes) > 1% indicates that a LEFT SHIFT is Present. MCH (RBC) [Entitic mass] 31.2 pg 27.0-32.0 [facility] Nucleated RBC/100 WBC (Bld) [Ratio] 0 % 0-5 [facility] - Urinalysison Protein Ql (U) Negative [facility] MCHC Auto (RBC) [Mass/Vol]Or dered By: Dr. Hobbs on 11-09-2022 MCHC (RBC) [Mass/Vol] 34.2 g/dL 32-36 [facility] Platelets bldOrdered By: Dr. Hobbs on 11-09-2022 Platelets (Bld) [#/Vol] 197 10*3/uL 150-450 [facility] Serum Treponema species anti body detectionOrdered By: Dr. Hobbs on 11-09-2022 Treponema sp Ab Ql (S) Non-Reactive [facility] - Chemistry and C hemistry - challengeon 10-21-2022 Glucose Ql (U) Negative [facility] - Urinalysison Protein Ql (U) Negative [facility] Absolute lymphocyte counton 09-20-2022 Lymphocytes Auto (Unsp spec) [#/Vol] 1.82 10*3/uL 0.83-4.51 [facility] Work Phone: Basophil percentageon 2021 Basophils/100 WBC (Bld) 0.5 % 0-1 [facility] Work Phone: Chloride [Moles/Vol] 107 mmol/L 98-107 [facility] Work Phone: Eosinophils/100 WBC (Bld) 1.2 % 0-5 [facility] Work Phone: Glucose [Mass/Vol] 82 mg/dL 74-106 [facility] Work Phone: Neutrophils (Bld) [#/Vol] 5.0 10*3/uL 2.0-7.7 [facility] Work Phone: Neutrophils/100 WBC (Bld) 66.2 % 47-70 [facility] Work Phone: Potassium [Moles/Vol] 3.7 mmol/L 3.5-5.1 [facility] Work Phone: Sodium [Moles/Vol] 137 mmol/L 136-145 [facility] Work Phone: WBC (Bld) [#/Vol] 7.5 10*3/uL 4.4-11.0 [facility] Work Phone: Blood erythrocytes count (nu mber/volume)on 09-20-2022 RBC (Bld) [#/Vol] 3.85 10*6/uL 4.2-5.4 [facility] Work Phone: Blood hemoglobin measurement (mass/volume)on 09-20-2022 Hemoglobin (Bld) [Mass/Vol] 11.5 g/dL 12.0-15.0 [facility] Work Phone: Blood lymphocytes/100 leukoc yteson 09-20-2022 Lymphocytes/100 WBC (Bld) 24.2 % 19-41 [facility] Work Phone: Blood monocytes/100 leukocyt eson 09-20-2022 Monocytes/100 WBC (Bld) 7.4 % 0-10 [facility] Work Phone: Blood platelet mean volumeon 09-20-2022 Platelet mean volume (Bld) [Entitic vol] 10.3 fL 6.2-12.0 [facility] Work Phone: Determination of erythrocyte mean corpuscular volume (MCV)on 09-20-2022 MCV (RBC) [Entitic vol] 87.0 fL 81-99 [facility] Work Phone: Hematocrit Auto (Bld) [Volum e fraction]on 09-20-2022 Hematocrit (Bld) [Volume fraction] 33.5 % 37-47 [facility] Work Phone: Laboratory - Chemistry and C hemistry - challengeon 09-20-2022 CO2 [Moles/Vol] 21.0 mmol/L 21.0-32.0 [facility] Work Phone: Urea nitrogen/Creatinine [Mass ratio] 19.1 mg/mg 10-20 [facility] Work Phone: Laboratory - Hematology and Cell countson 09-20-2022 Erythrocyte distribution width (RBC) [Entitic vol] 39.7 fL 35.1-43.9 [facility] Work Phone: Erythrocyte distribution width (RBC) [Ratio] 12.6 % 11.6-14.6 [facility] Work Phone: [phone] Immature granulocytes/100 WBC (Bld) 0.500 % 0.0-0.9 [facility] Work Phone: Comment on above: IG% - Immature Granu locytes (promyelocytes, myelocytes and metamyelocytes) > 1% indicates that a LEFT SHIFT is Present. MCH (RBC) [Entitic mass] 29.9 pg 27.0-32.0 [facility] Work Phone: Nucleated RBC/100 WBC (Bld) [Ratio] 0 % 0-5 [facility] Work Phone: MCHC Auto (RBC) [Mass/Vol]on 09-20-2022 MCHC (RBC) [Mass/Vol] 34.3 g/dL 32-36 [facility] Work Phone: No Panel Informationon 09-20 D-Dimer Quantitative (PE/DVT) 2.27 FEU/ug/m 0.27-0.49 [facility] Work Phone: Comment on above: CRITICAL VALUE VERIF IED. CALLED TO BRIDGET COONEY RN ED09/20/221937 Ryan Yi.RESULTS READ BACK BY SAME . D-Dimer ELEVATED (>0.49): Additional studies and clinicalassessments are indicated to conclude diagnosis of:Deep Vein Thrombosis (DVT) or Pulmonary Embolism (PE) Estimated Creatinine Clearance Calc 95.76 ml/min [facility] Work Phone: Estimated GFR (MDRD) Amer 111 mL/min >60 [facility] Work Phone: Comment on above: GFR Calc Estimated GFR (MDRD) Non-Af Amer 92 mL/min >60 [facility] Work Phone: Comment on above: Non- GFR Calc Troponin I High Sensitivity < 3 pg/mL 3.0-54.0 [facility] Work Phone: Comment on above: Please Note: New Soc[place] t Units and Gender Specific Reference Ranges. For more information see Policy Stat Procedure [place] High Sensitivity Troponin (TNIH) and attachments. Platelets bldon 09-20-2022 Platelets (Bld) [#/Vol] 163 10*3/uL 150-450 [facility] Work Phone: Serum or plasma calcium roxie urement (mass/volume)on 09-20-2022 Calcium [Mass/Vol] 8.7 mg/dL 8.5-10.1 [facility] Work Phone: Serum or plasma creatinine m easurement (mass/volume)on 09-20-2022 Creatinine [Mass/Vol] 0.78 mg/dL 0.55-1.02 [facility] Work Phone: Comment on above: The validity of the calculated GFR & GFRAA in patients over 70 years has not been determined. Clinical correlation is essential. Serum or plasma urea nitroge n measurement (mass/volume)on 09-20-2022 Urea nitrogen [Mass/Vol] 15 mg/dL 7-18 [facility] Work Phone: Thin prep Papanicolaou smear with manual screeningon 09-20-2022 Thin prep Papanicolaou smear with manual screening 9 5-15 [facility] Work Phone: Laboratory - Chemistry and C hemistry - challengeon 09-09-2022 Glucose Ql (U) Negative [facility] Work Phone: Laboratory - Urinalysison Protein Ql (U) Negative [facility] Work Phone: Absolute lymphocyte counton 08-12-2022 Lymphocytes Auto (Unsp spec) [#/Vol] 1.82 10*3/uL 0.83-4.51 [facility] Work Phone: Basophil percentageon 2021 Basophils/100 WBC (Bld) 0.5 % 0-1 [facility] Work Phone: Eosinophils/100 WBC (Bld) 0.9 % 0-5 [facility] Work Phone: Neutrophils (Bld) [#/Vol] 4.2 10*3/uL 2.0-7.7 [facility] Work Phone: Neutrophils/100 WBC (Bld) 64.5 % 47-70 [facility] Work Phone: WBC (Bld) [#/Vol] 6.5 10*3/uL 4.4-11.0 [facility] Work Phone: Blood erythrocytes count (nu mber/volume)on 08-12-2022 RBC (Bld) [#/Vol] 4.15 10*6/uL 4.2-5.4 [facility] Work Phone: Blood hemoglobin measurement (mass/volume)on 08-12-2022 Hemoglobin (Bld) [Mass/Vol] 12.4 g/dL 12.0-15.0 [facility] Work Phone: Blood lymphocytes/100 leukoc yteson 08-12-2022 Lymphocytes/100 WBC (Bld) 28.0 % 19-41 [facility] Work Phone: Blood monocytes/100 leukocyt eson 08-12-2022 Monocytes/100 WBC (Bld) 5.8 % 0-10 [facility] Work Phone: Blood platelet mean volumeon 08-12-2022 Platelet mean volume (Bld) [Entitic vol] 10.4 fL 6.2-12.0 [facility] Work Phone: Determination of erythrocyte mean corpuscular volume (MCV)on 08-12-2022 MCV (RBC) [Entitic vol] 87.2 fL 81-99 [facility] Work Phone: HIV 1 and HIV-2 antibody ass ay with HIV-1 p24 antigen detectionon 08-12-2022 HIV 1+2 Ab+HIV1 p24 Ag IA Ql Non-Reactive Nonreactive [facility] Work Phone: Hematocrit Auto (Bld) [Volum e fraction]on 08-12-2022 Hematocrit (Bld) [Volume fraction] 36.2 % 37-47 [facility] Work Phone: Laboratory - Chemistry and C hemistry - challengeon 08-12-2022 Glucose Ql (U) Negative [facility] Work Phone: Laboratory - Hematology and Cell countson 08-12-2022 Erythrocyte distribution width (RBC) [Entitic vol] 38.9 fL 35.1-43.9 [facility] Work Phone: Erythrocyte distribution width (RBC) [Ratio] 12.2 % 11.6-14.6 [facility] Work Phone: Immature granulocytes/100 WBC (Bld) 0.300 % 0.0-0.9 [facility] Work Phone: Comment on above: IG% - Immature Granu locytes (promyelocytes, myelocytes and metamyelocytes) > 1% indicates that a LEFT SHIFT is Present. MCH (RBC) [Entitic mass] 29.9 pg 27.0-32.0 [facility] Work Phone: Nucleated RBC/100 WBC (Bld) [Ratio] 0 % 0-5 [facility] Work Phone: Laboratory - Urinalysison Protein Ql (U) Negative [facility] Work Phone: MCHC Auto (RBC) [Mass/Vol]on 08-12-2022 MCHC (RBC) [Mass/Vol] 34.3 g/dL 32-36 [facility] Work Phone: No Panel Informationon 08-12 Hepatitis B Surface Antigen Non-Reactive Nonreactive [facility] Work Phone: Hepatitis C Antibody Non-Reactive Nonreactive [facility] Work Phone: Comment on above: Non Reactive: < 0.8 Equivocal: >/= 0.8 to < 1.0 Reactive: >/= 1.0The CDC recommends that a reactive/equivocal HCV antibody result be followed up by the HCV Nucleic Acid Amplificationtest (249322) Rubella IgG Antibody Reactive Nonreactive [facility] Work Phone: Comment on above: Antibody Results Int erpretation of Immune Status Non Reactive Presumed Non-Immune Equivocal Equivocal Reactive Presumed Immune Platelets bldon 08-12-2022 Platelets (Bld) [#/Vol] 189 10*3/uL 150-450 [facility] Work Phone: Serum Treponema species anti body detectionon 08-12-2022 Treponema sp Ab Ql (S) Non-Reactive [facility] Work Phone: Cervical or vagninal specime n microscopic examination by cytology stain (reported ason 07-12-2022 Cytology report Cyto stain Doc (Cvx/Vag) Comment . [facility] Work Phone: Comment on above: The [...] rRNA LIBBY+probe Ql (Unsp spec) Negative Negative [facility] Work Phone: Laboratory - Cytologyon 06-15 Hematology Specialist Cyto stain Nom (Cvx/Vag) [ID] Comment . [facility] Work Phone: Comment on above: [address] Cytote chnologist (ASCP) Laboratory - Drug toxicology on 07-12-2022 Amphetamines Ql (U) Negative <1000 ng/mL [facility] Work Phone: Benzodiazepines Ql (U) Negative < 200 ng/mL [facility] Work Phone: Cannabinoids Screen Ql (U) Negative < 50 ng/mL [facility] Work Phone: Cocaine Ql (U) Negative < 300 ng/mL [facility] Work Phone: Opiates Ql (U) Negative < 300 ng/mL [facility] Work Phone: Laboratory - Microbiology an d Antimicrobial susceptibilityon 07-12-2022 N. gonorrhoeae DNA LIBBY+probe Ql (Unsp spec) Negative Negative [facility] Work Phone: Comment on above: Performed at: =[facility] Rosalind jacobo [address] [id number] Director: Colleen Rose MD, Phone: [phone] Laboratory - Miscellaneous t estson 07-12-2022 Service comment (Unsp spec) [Interp] Comment . [facility] Work Phone: Comment on above: This liquid based Th inPrep(R) pap test was screened withthe use of an image guided system. Service comment (Unsp spec) [Interp] . . [facility] Work Phone: No Panel Informationon 07-12 Human Papillomavirus Screen Comment . [facility] Work Phone: Comment on above: The HPV DNA reflex c riteria were not met with this specimenresult therefore, no HPV testing was performed.Performed at: [address] [id number] Director: Colleen Rose MD, Phone: [phone] MDMA (Ecstasy) Screen Negative < 500 ng/mL [facility] Work Phone: Pathology report final diagnosis Narrative Comment . [facility] Work Phone: Comment on above: NEGATIVE FOR INTRAEP ITHELIAL LESION OR MALIGNANCY. Urine Barbiturates Screen Negative < 200 ng/mL [facility] Work Phone: Urine Drug Screen Comment [facility] Work Phone: Comment on above: CONFIRMATORY [...] Urine Methadone Screen Negative < 300 ng/mL [facility] Work Phone: Urine phencyclidine (PCP) de tectionon 07-12-2022 Phencyclidine Ql (U) Negative < 25 ng/mL [facility] Work Phone: Serum or plasma choriogonado tropin detectionon 06-24-2022 HCG ( test) [place]l 41826 mIU/mL <4 [facility] Work Phone: Comment on above: hCG levels with Gest ational AgeGestational Age hCG mIU/mL (IU/L)0.2 - 1 week 5 - 501-2 weeks 50 - 5002-3 weeks 100 - 46419-1 weeks 500 - 579262-7 weeks 1000 - 455389-1 weeks 07418 - 100,0006-8 weeks 29915 - 200,0002-3 months 30726 - 100,000 Culture, urine Bacteria identified Cx Nom (U) Positive [facility] Work Phone: Vital Signs Date Time Vital Sign Value Performing Clinician Facility 05-27-2025 08:06-0400 Body height 165.[address] Chavez Devlin MD Work Phone: 9(142)387-560875 [place] [address] 05-27-2025 08:06-0400 Body mass index (BMI) [Ratio] 29 kg/m2 Dr. Chavez Devlin MD Work Phone: 1(959)717-251475 [place] [address] 05-27-2025 08:06-0400 Body weight 78.[address] Chavez Devlin MD Work Phone: 6(890)189-480975 [place] [address] 05-27-2025 08:06-0400 Diastolic blood pressure 85 mm[Hg] Dr. Chavez Devlin MD Work Phone: 0(525)076-868075 [place] [address] 05-27-2025 08:06-0400 Systolic blood pressure 122 mm[Hg] Dr. Chavez Devlin MD Work Phone: 3(868)595-980214 [place] [address] 04-21-2025 09:16-0400 Body height 165.[address] Chavez Devlin MD Work Phone: 7(517)654-612975 [place] [address] 04-21-2025 09:11-0400 Body mass index (BMI) [Ratio] 28.4 kg/m2 Dr. Chavez Devlin MD Work Phone: 5(419)334-806914 [place] [address] 04-21-2025 09:11-0400 Body weight 77.[address] Chavez Devlin MD Work Phone: 7(128)714-255875 [place] [address] 04-21-2025 09:11-0400 Diastolic blood pressure 84 mm[Hg] Dr. Chavez Devlin MD Work Phone: [facility] 04-21-2025 09:11-0400 Systolic blood pressure 122 mm[Hg] Dr. Chavez Devlin MD Work Phone: [facility] 02-28-2025 09:14-0400 Body mass index (BMI) [Ratio] 29 kg/m2 Dr. Chavez Devlin MD Work Phone: [facility] 02-28-2025 09:14-0400 Body weight 79.[address] Chavez Devlin MD Work Phone: [facility] 02-28-2025 09:14-0400 Diastolic blood pressure 84 mm[Hg] Dr. Chavez Devlin MD Work Phone: [facility] 02-28-2025 09:14-0400 Systolic blood pressure 117 mm[Hg] Dr. Chavez Devlin MD Work Phone: [facility] 08-29-2024 18:03-0400 Body mass index (BMI) [Ratio] 27.73 kg/m2 Jeffy Haney SUSTAINABILITY ANALYST.WATER USE INSPECTOR Work Phone: [facility] 08-29-2024 18:03-0400 Body temperature 98.71 [degF] Jeffy Haney SUSTAINABILITY ANALYST.WATER USE INSPECTOR Work Phone: [facility] 08-29-2024 18:03-0400 Body weight 75.6 kg Jeffy Haney SUSTAINABILITY ANALYST.WATER USE INSPECTOR Work Phone: [facility] 08-29-2024 18:03-0400 Diastolic blood pressure 79 mm[Hg] Jeffy Haney SUSTAINABILITY ANALYST.WATER USE INSPECTOR Work Phone: [facility] 08-29-2024 18:03-0400 Heart rate 80 /min Jeffy Haney SUSTAINABILITY ANALYST.WATER USE INSPECTOR Work Phone: [facility] 08-29-2024 18:03-0400 Respiratory rate 18 /min Jeffy Haney SUSTAINABILITY ANALYST.WATER USE INSPECTOR Work Phone: [facility] 08-29-2024 18:03-0400 SaO2% (BldA) [Mass fraction] 99 % Jeffy Haney SUSTAINABILITY ANALYST.WATER USE INSPECTOR Work Phone: [facility] 08-29-2024 18:03-0400 Systolic blood pressure 133 mm[Hg] Jeffy Haney SUSTAINABILITY ANALYST.WATER USE INSPECTOR Work Phone: [facility] 01-31-2023 07:56-0400 Diastolic blood pressure 80 mm[Hg] Dr. Chavez Devlin Work Phone: [facility] 01-31-2023 07:56-0400 Systolic blood pressure 122 mm[Hg] Dr. Chavez Devlin Work Phone: [facility] 01-31-2023 07:55-0400 Heart rate 88 /min Dr. Chavez Devlin Work Phone: 4(666)175-033574 [address] 01-31-2023 07:42-0400 Body temperature 97.8 [degF] Dr. Chavez Devlin Work Phone: 1(324)531-514014 [place] [address] 01-31-2023 07:42-0400 Respiratory rate 16 /min Dr. Chavez Devlin Work Phone: [facility] 01-31-2023 07:42-0400 SaO2% (BldA) [Mass fraction] 100 % Dr. Chavez Devlin Work Phone: 3(493)594-585114 [place] [address] 01-30-2023 01:18-0400 Body height 165.[address] Chavez Devlin Work Phone: [facility] 01-30-2023 01:18-0400 Body mass index (BMI) [Ratio] 30.9 kg/m2 Dr. Chavez Devlin Work Phone: 6(103)182-740114 [place] [address] 01-30-2023 01:18-0400 Body weight 84.[address] Chavez Devlin Work Phone: 3(169)012-735314 [place] [address] 01-27-2023 10:56-0400 Body height 165.[address] Chavez Devlin Work Phone: 3(337)985-917414 [place] [address] 01-27-2023 10:56-0400 Body mass index (BMI) [Ratio] 30.7 kg/m2 Dr. Chavez Devlin Work Phone: 9(502)048-973675 [place] [address] 01-27-2023 10:56-0400 Body weight 83.[address] Chavez Devlin Work Phone: 0(488)248-569075 [place] [address] 01-27-2023 10:56-0400 Diastolic blood pressure 86 mm[Hg] Dr. Chavez Devlin Work Phone: 5(034)496-376875 [place] [address] 01-27-2023 10:56-0400 Systolic blood pressure 125 mm[Hg] Dr. Chavez Devlin Work Phone: 5(118)373-572275 [place] [address] 01-20-2023 09:33-0500 Body mass index (BMI) [Ratio] 30.3 kg/m2 Dr. Chavez Devlin Work Phone: 9(707)265-067475 [place] [address] 01-20-2023 09:33-0500 Body weight 82.[address] Chavez Devlin Work Phone: 8(582)965-864475 [place] [address] 01-20-2023 09:33-0500 Diastolic blood pressure 86 mm[Hg] Dr. Chavez Devlin Work Phone: 6(852)869-272375 [place] [address] 01-20-2023 09:33-0500 Systolic blood pressure 133 mm[Hg] Dr. Chavez Devlin Work Phone: 9(219)970-549475 [place] [address] 01-13-2023 09:20-0500 Body height 165.[address] Chavez Devlin Work Phone: 2(502)191-494475 [place] [address] 01-13-2023 09:20-0500 Body mass index (BMI) [Ratio] 30.4 kg/m2 Dr. Chavez Devlin Work Phone: 5(588)340-749475 [place] [address] 01-13-2023 09:20-0500 Body weight [address] Chavez Devlin Work Phone: 5(826)059-048975 [place] [address] 01-13-2023 09:20-0500 Diastolic blood pressure 85 mm[Hg] Dr. Chavez Devlin Work Phone: 8(963)812-995575 [place] [address] 01-13-2023 09:20-0500 Systolic blood pressure 124 mm[Hg] Dr. Chavez Devlin Work Phone: 4(270)521-680975 [place] [address] 01-06-2023 09:28-0500 Body mass index (BMI) [Ratio] 30.1 kg/m2 Dr. Chavez Devlin Work Phone: 7(602)790-500375 [place] [address] 01-06-2023 09:28-0500 Body weight 82.[address] Chavez Devlin Work Phone: 2(617)313-422975 [place] [address] 01-06-2023 09:28-0500 Diastolic blood pressure 86 mm[Hg] Dr. Chavez Devlin Work Phone: 1(659)382-234275 [place] [address] 01-06-2023 09:28-0500 Systolic blood pressure 124 mm[Hg] Dr. Chavez Devlin Work Phone: 4(933)057-506675 [place] [address] 12-23-2022 10:33-0500 Body mass index (BMI) [Ratio] 30.2 kg/m2 Dr. Chavez Devlin Work Phone: 8(227)646-549975 [place] [address] 12-23-2022 10:33-0500 Body weight 82.[address] Chavez Devlin Work Phone: 3(824)962-860875 [place] [address] 12-23-2022 10:33-0500 Diastolic blood pressure 74 mm[Hg] Dr. Chavez Devlin Work Phone: 8(792)768-372275 [place] [address] 12-23-2022 10:33-0500 Systolic blood pressure 122 mm[Hg] Dr. Chavez Devlin Work Phone: 6(195)303-090075 [place] [address] 12-09-2022 13:24-0500 Diastolic blood pressure 83 mm[Hg] Dr. Chavez Devlin Work Phone: 6(219)584-685775 [place] [address] 12-09-2022 13:24-0500 Systolic blood pressure 121 mm[Hg] Dr. Chavez Devlin Work Phone: 5(771)726-879875 [place] [address] 12-09-2022 13:11-0500 Body mass index (BMI) [Ratio] 30.2 kg/m2 Dr. Chavez Devlin Work Phone: 2(823)850-681875 [place] [address] 12-09-2022 13:11-0500 Body weight 82.[address] Chavez Devlin Work Phone: 4(350)057-878975 [place] [address] 11-25-2022 10:05-0500 Diastolic blood pressure 83 mm[Hg] Dr. Chavez Devlin Work Phone: 1(062)719-822475 [place] [address] 11-25-2022 10:05-0500 Systolic blood pressure 116 mm[Hg] Dr. Chavez Devlin Work Phone: 5(239)732-565475 [place] [address] 11-25-2022 09:10-0500 Body mass index (BMI) [Ratio] 29.7 kg/m2 Dr. Chavez Devlin Work Phone: 6(954)428-339475 [place] [address] 11-25-2022 09:10-0500 Body weight 81.[address] Chavez Devlin Work Phone: 2(326)904-540775 [place] [address] 11-09-2022 09:44-0500 Body height 165.[address] Chavez Devlin Work Phone: 4(226)412-512675 [place] [address] Work Phone: 11-09-2022 09:44-0500 Body mass index (BMI) [Ratio] 29.7 kg/m2 Dr. Chavez Devlin Work Phone: 3(824)029-523775 [place] [address] 11-09-2022 09:44-0500 Body weight 81.[address] Chavez Devlin Work Phone: 9(787)053-693475 [place] [address] 11-09-2022 09:44-0500 Diastolic blood pressure 80 mm[Hg] Dr. Chavez Devlin Work Phone: 4(535)535-658775 [place] [address] 11-09-2022 09:44-0500 Systolic blood pressure 130 mm[Hg] Dr. Chavez Devlin Work Phone: 4(583)010-183775 [place] [address] 10-21-2022 13:56-0500 Body mass index (BMI) [Ratio] 29.6 kg/m2 Dr. Chavez Devlin Work Phone: 8(635)691-571375 [place] [address] 10-21-2022 13:56-0500 Body weight 80.[address] Chavez Devlin Work Phone: 9(321)054-581975 [place] [address] 10-21-2022 13:56-0500 Diastolic blood pressure 82 mm[Hg] Dr. Chavez Devlin Work Phone: [facility] 10-21-2022 13:56-0500 Systolic blood pressure 135 mm[Hg] Dr. Chavez Devlin Work Phone: [facility] 09-20-2022 20:43-0500 Body temperature 98.5 [degF] Dr. Chavez Devlin Work Phone: [facility] Work Phone: 09-20-2022 20:43-0500 Diastolic blood pressure 84 mm[Hg] Dr. Chavez Devlin Work Phone: [facility] Work Phone: 09-20-2022 20:43-0500 Heart rate 86 /min Dr. Chavez Devlin Work Phone: [facility] Work Phone: 09-20-2022 20:43-0500 Respiratory rate 20 /min Dr. Chavez Devlin Work Phone: [facility] Work Phone: 09-20-2022 20:43-0500 SaO2% (BldA) [Mass fraction] 99 % Dr. Chavez Devlin Work Phone: [facility] Work Phone: 09-20-2022 20:43-0500 Systolic blood pressure 118 mm[Hg] Dr. Chavez Devlin Work Phone: [facility] Work Phone: 09-20-2022 18:07-0500 Body mass index (BMI) [Ratio] 29.2 kg/m2 Dr. Chavez Devlin Work Phone: [facility] Work Phone: 09-20-2022 18:07-0500 Body weight 79.[address] Chavez Delvin Work Phone: [facility] Work Phone: 09-09-2022 15:32-0400 Body mass index (BMI) [Ratio] 29.2 kg/m2 Dr. Chavez Devlin Work Phone: [facility] Work Phone: 09-09-2022 15:32-0400 Body weight 79.[address] Chavez Devlin Work Phone: [facility] Work Phone: 09-09-2022 15:32-0400 Diastolic blood pressure 84 mm[Hg] Dr. Chavez Devlin Work Phone: [facility] Work Phone: 09-09-2022 15:32-0400 Systolic blood pressure 123 mm[Hg] Dr. Chavez Devlin Work Phone: [facility] Work Phone: 08-12-2022 10:19-0400 Body height 165.[address] Chavez Devlin Work Phone: [facility] Work Phone: 08-12-2022 10:18-0400 Body mass index (BMI) [Ratio] 28.6 kg/m2 Dr. Chavez Devlin Work Phone: [facility] Work Phone: 08-12-2022 10:18-0400 Body weight 78.[address] Chavez Devlin Work Phone: [facility] Work Phone: 08-12-2022 10:18-0400 Diastolic blood pressure 80 mm[Hg] Dr. Chavez Devlin Work Phone: [facility] Work Phone: 08-12-2022 10:18-0400 Systolic blood pressure 120 mm[Hg] Dr. Chavez Devlin Work Phone: [facility] Work Phone: 07-12-2022 14:21-0400 Body height 165.[address] Chavez Devlin Work Phone: [facility] Work Phone: 07-12-2022 14:20-0400 Body mass index (BMI) [Ratio] 29.3 kg/m2 Dr. Chavez Devlin Work Phone: [facility] Work Phone: 07-12-2022 14:20-0400 Body weight 79.[address] Chavez Devlin Work Phone: [facility] Work Phone: 07-12-2022 14:20-0400 Diastolic blood pressure 70 mm[Hg] Dr. Chavez Devlin Work Phone: [facility] Work Phone: 07-12-2022 14:20-0400 Systolic blood pressure 120 mm[Hg] Dr. Chavez Devlin Work Phone: [facility] Work Phone: 04-19-2022 14:10-0400 Body mass index (BMI) [Ratio] 29 kg/m2 Dr. Chavez Devlin Work Phone: [facility] Work Phone: 04-19-2022 14:10-0400 Body weight 79.[address] Chavez Devlin Work Phone: [facility] Work Phone: 04-19-2022 14:10-0400 Diastolic blood pressure 79 mm[Hg] Dr. Chavez Devlin Work Phone: [facility] Work Phone: 04-19-2022 14:10-0400 Systolic blood pressure 146 mm[Hg] Dr. Chavez Devlin Work Phone: [facility] Work Phone: Encounters Encounter Date Encounter Type Care Provider Facility Start: 05-27-2025 End: 05-27-[address] Chavez Devlin MD Work Phone: -[facility] Start: 05-27-2025 End: 05-27-2025 Patient encounter procedure Avelina CADENA -[facility] Work Phone: Start: 04-21-2025 End: 04-21-[address] Chavez Devlin MD Work Phone: [facility] Work Phone: Start: 04-21-2025 End: 04-21-2025 Patient encounter procedure Avelina Goodson ADOLESCENT COUNSELOR-C -Laboratory Specimen Work Phone: Start: 04-21-2025 End: 04-21-2025 Patient encounter procedure Avelina Goodson ADOLESCENT COUNSELOR-C -[facility] Work Phone: Start: 04-21-2025 End: 04-21-2025 Patient encounter status Avelina Goodson ADOLESCENT COUNSELOR-C [facility] Start: 04-21-2025 End: 04-21-[address] Chavez Devlin MD Work Phone: [facility] Work Phone: Start: 04-21-2025 End: 04-21-2025 ambulatory Avelina Goodson ADOLESCENT COUNSELOR Facility:[facility] Start: 02-28-2025 End: 02-28-[address] Chari Mg MD -[facility] Work Phone: Start: 02-28-2025 End: 02-28-2025 ambulatory Chari Mg Facility:[facility] Start: 09-01-2024 End: 09-01-2024 ambulatory Gwendolyn Hewitt RN NURSE ICU REGISTERED NURSE Comment on above: Foot Pain (Midfoot) Start: 09-01-2024 End: 09-01-2024 Emergency department patient visit Chavez Devlin Facility:[facility] Start: 08-29-2024 End: 08-29-2024 ambulatory CHAVEZ DEVLIN Facility:[facility] Start: 08-29-2024 End: 08-29-2024 Patient encounter procedure Jeffy Haney APRN.WATER USE INSPECTOR Work Phone: [facility] Comment on above: Cellulitis of right foot (Primary Dx) Start: 01-31-2023 Non-patient / Non-visit Dr. Chavez Devlin Work Phone: [facility] Start: 01-30-2023 Non-patient / Non-visit Dr. Chavez Devlin Work Phone: [facility] Start: 01-30-2023 End: 01-31-2023 Evaluation and management of inpatient Dr. Chavez Philip Phone: [facility] Start: 01-27-2023 End: 01-27-[address] Chavez Devlin Work Phone: [facility] Start: 01-20-2023 End: 01-20-[address] Chavez Devlin Work Phone: [facility] Work Phone: Start: 01-20-2023 End: 01-20-[address] [facility] Start: 01-20-2023 End: 01-20-[address] Chavez Devlin Work Phone: [facility] Start: 01-13-2023 End: 01-13-[address] Chavez Devlin Work Phone: [facility] Work Phone: Start: 01-13-2023 End: 01-13-[address] [facility] Start: 01-13-2023 End: 01-13-[address] Chavez Devlin Work Phone: [facility] Start: 01-06-2023 End: 01-06-[address] Chavez Devlin Work Phone: [facility] Start: 12-23-2022 End: 12-23-[address] Chavez Devlin Work Phone: [facility] Start: 12-09-2022 End: 12-09-[address] Chavez Devlin Work Phone: [facility] Start: 11-25-2022 End: 11-25-[address] Chavez Devlin Work Phone: [facility] Start: 11-09-2022 End: 11-09-[address] Chavez Devlin Work Phone: [facility] Work Phone: Start: 11-09-2022 End: 11-09-[address] Chavez Devlin Work Phone: [facility] Start: 10-21-2022 End: 10-21-[address] Chavez Devlin Work Phone: [facility] Start: 09-23-2022 End: 09-23-2022 ambulatory [facility] Start: 09-20-2022 End: 09-20-2022 Emergency department patient visit Dr. Chavez Devlin Work Phone: [facility] Start: 09-09-2022 End: 09-09-[address] Chavez Devlin Work Phone: [facility] Start: 08-12-2022 End: 08-12-[address] Chavez Devlin Work Phone: [facility] Work Phone: Start: 08-12-2022 End: 08-12-[address] Chavez Devlin Work Phone: [facility] Start: 07-12-2022 End: 07-12-[address] Chavez Devlin Work Phone: [facility] Work Phone: Start: 07-12-2022 End: 07-12-[address] Chavez Devlin Work Phone: [facility] Start: 07-12-2022 End: 07-12-[address] Chavez Devlin Work Phone: [facility] Start: 06-24-2022 End: 06-24-[address] Chavez Devlin Work Phone: [facility] Start: 04-19-2022 End: 04-19-[address] Chavez Devlin Work Phone: [facility] Procedures Date Procedure Procedure Detail Performing Clinician [...] DTaP,Tdap,Td Vaccine (9 - Td or Tdap) [facility] Start: 07-12-2027 Screening for malignant neoplasm of cervix Cervical Cancer Screening [facility] Start: 07-14-2024 Covid-19 Vaccine () Covid-19 Vaccine () [facility] Start: 07-14-2024 Influenza vaccination Influenza Vaccine (#1) [facility] Start: 01-31-2023 Patient discharge [facility] Start: 01-30-2023 Administration of medication [facility] Start: 01-30-2023 Application of ice collar, cap or bag [facility] Start: 01-30-2023 Catheterization of vein [facility] Start: 01-30-2023 Introduction of urinary catheter [facility] Start: 01-30-2023 Measuring intake and output [facility] Start: 01-30-2023 Notification of physician [facility] Start: 01-30-2023 Procedure discontinued [facility] Start: 01-30-2023 Provision of activity privileges [facility] Start: 01-30-2023 Vital signs measurements [facility] Start: 01-30-2023 [facility] Start: 01-30-2023 Admission procedure [facility] Start: 09-20-2022 [facility] Work Phone: Start: 07-12-2022 Chlamydia deoxyribonucleic acid detection [facility] Work Phone: Start: 07-12-2022 Liquid based cervical cytology screening [facility] Work Phone: Start: 2010 Depression Screening Depression Screening [facility] Start: 2010 Hepatitis C screening Hepatitis C Screening [facility] Start: 2010 HIV screening HIV Screening [facility] Start: 08-07-2006 Hepatitis B Vaccine (3 of 3 - 3-dose series) Hepatitis B Vaccine (3 of 3 - 3-dose series) [facility] CBC W Auto Different ial panel - Blood [facility] Work Phone: Hepatitis B surface antigen measurement [facility] Work Phone: Hepatitis C antibody measurement [facility] Work Phone: HIV 1+2 Ab+HIV1 p24 Ag [Presence] in Serum or Plasma by Immunoassay [facility] Work Phone: Liquid based cervica l cytology screening [facility] Neisseria gonorrhoea e rRNA [Presence] in Unspecified specimen by LIBBY with probe detection [facility] Work Phone: Path report.final Dx Spec [facility] Work Phone: Patient Education [facility] Work Phone: Patient referral [facility] Work Phone: PCR test for Chlamyd ia trachomatis [facility] Work Phone: Rubella IgG measurement [facility] Work Phone: Streptococcus agalac tiae [Presence] in Unspecified specimen by Organism specific culture [facility] Treponema sp Ab [Pre sence] in Serum [facility] Work Phone: [facility] Immunizations Immunization Date Immunization Notes Care Provider Fa cility 12-09-2022 tetanus toxoid, reduced diphtheria toxoid, and acellular pertussis vaccine, adsorbed Dr. Chavez Devlin Work Phone: [facility] 11-07-2019 tetanus toxoid, reduced diphtheria toxoid, and acellular pertussis vaccine, adsorbed Dr. Chavez Devlin Work Phone: [facility] 09-13-2019 influenza virus vaccine, unspecified formulation Jeffy Haney SUSTAINABILITY ANALYST.WATER USE INSPECTOR Work Phone: [facility] 08-16-[address] Chavez Devlin Work Phone: [facility] 09-21-2017 influenza, seasonal, injectable Jeffy Haney SUSTAINABILITY ANALYST.WATER USE INSPECTOR Work Phone: [facility] 06-12-2006 hepatitis B vaccine, pediatric or pediatric/adolescent dosage Jeffy Haney SUSTAINABILITY ANALYST.WATER USE INSPECTOR Work Phone: [facility] 06-12-2006 tetanus toxoid, reduced diphtheria toxoid, and acellular pertussis vaccine, adsorbed Jeffy Haney SUSTAINABILITY ANALYST.WATER USE INSPECTOR Work Phone: [facility] 06-02-2005 hepatitis B vaccine, pediatric or pediatric/adolescent dosage Jeffy Haney SUSTAINABILITY ANALYST.WATER USE INSPECTOR Work Phone: [facility] 06-02-2005 measles, mumps and rubella virus vaccine Jeffy Haney SUSTAINABILITY ANALYST.WATER USE INSPECTOR Work Phone: [facility] 07-08-1997 diphtheria, tetanus toxoids and acellular pertussis vaccine Jeffy Haney SUSTAINABILITY ANALYST.WATER USE INSPECTOR Work Phone: [facility] 07-08-1997 haemophilus influenz ae type b vaccine, HbOC conjugate Jeffy Haney SUSTAINABILITY ANALYST.WATER USE INSPECTOR Work Phone: [facility] 07-08-1997 trivalent poliovirus vaccine, live, oral Jeffy Haney SUSTAINABILITY ANALYST.WATER USE INSPECTOR Work Phone: [facility] 09-13-1996 chicken pox (disease) Tootie a Haney SUSTAINABILITY ANALYST.WATER USE INSPECTOR Work Phone: [facility] Work Phone: 07-09-1996 diphtheria, tetanus toxoids and acellular pertussis vaccine Jeffy Haney SUSTAINABILITY ANALYST.WATER USE INSPECTOR Work Phone: [facility] 07-09-1996 trivalent poliovirus vaccine, live, oral Jeffy Haney SUSTAINABILITY ANALYST.WATER USE INSPECTOR Work Phone: [facility] 03-17-1994 diphtheria, tetanus toxoids and acellular pertussis vaccine Jeffy Haney SUSTAINABILITY ANALYST.WATER USE INSPECTOR Work Phone: [facility] 03-17-1994 haemophilus influenz ae type b vaccine, HbOC conjugate Jeffy Haney SUSTAINABILITY ANALYST.WATER USE INSPECTOR Work Phone: [facility] 03-17-1994 measles, mumps and rubella virus vaccine Jeffy Haney SUSTAINABILITY ANALYST.WATER USE INSPECTOR Work Phone: [facility] 03-17-1994 trivalent poliovirus vaccine, live, oral Jeffy Haney SUSTAINABILITY ANALYST.WATER USE INSPECTOR Work Phone: [facility] 01-28-1993 diphtheria, tetanus toxoids and acellular pertussis vaccine Jeffy Haney SUSTAINABILITY ANALYST.WATER USE INSPECTOR Work Phone: [facility] Work Phone: 01-28-1993 haemophilus influenz ae type b vaccine, HbOC conjugate Jeffy Haney SUSTAINABILITY ANALYST.WATER USE INSPECTOR Work Phone: [facility] 01-28-1993 trivalent poliovirus vaccine, live, oral Jeffy Haney SUSTAINABILITY ANALYST.WATER USE INSPECTOR Work Phone: [facility] Work Phone: NEGATED: Highlighted row has not occurred!09-24-2007 hepatitis B vaccine, pediatric or pediatric/adolescent dosage Jeffy Haney SUSTAINABILITY ANALYST.WATER USE INSPECTOR Work Phone: [facility] Work Phone: Comment on above: Deferred: Postponed NEGATED: Highlighted row has not occurred!09-24-2007 Meningococcal, MCV4, unspecified conjugate formulation(groups A, C, Y and W-135) Jeffy Bailey SUSTAINABILITY ANALYST.WATER USE INSPECTOR Work Phone: [facility] Comment on above: Deferred: Postponed Payers Date Payer Category Payer Self-pay [id number] 2023 Unknown MMO MMO [employer] PPO [id number] 2023-Present [phone] [address] [place] [address] PPO [id number] 2023 Unknown [id number] 2010 Private Health Insurance [id number] 1992 Unknown [id number] Unknown ANTHEM [id number] [facility] [id number] Unknown [id number] Unknown [id number] Unknown [id number] Unknown [id number] Social History Date Type Detail Facility Start: 07-12-2022 End: 01-30-2023 Tobacco smoking status NHIS Unknown if ever smoked [facility] Start: 1990 Sex Assigned At Female [facility] Start: 09-01-2024 End: 05-27-2025 Tobacco smoking status NHIS Never smoked tobacco [facility] Start: 08-29-2024 Alcoholic beverage intake Current non-drinker of alcohol (finding) [facility] Start: 10-21-2020 End: 08-29-2024 History of Social function [facility] Start: 10-21-2020 End: 08-29-2024 Tobacco use panel [facility] National Score (1-10 0), lower number is lower risk Not on file [facility] Start: 1990 [facility] at [facility] Goals Date Patient Goal Desired Activity /State Mental Status Date Assessment Result Facility 09-20-2022 Cognitive function Voice/Name [facility] Work Phone: Clinical Notes 07-12-2022 to 02-28-2025 Note Date & Type Note Facility 02-28-2025 Evaluation note Diagnosis Onset Date Resolution Encounter for IUD removal noneactive February 28, 2025 9:05am Encounter for routine gynecological examination noneactive April 21, 2025 9:10am [facility] Work Phone: [phone] Telephone encounter Note* Telephone Encounter - Gwendolyn Hewitt RN - 09/01/2024 9:16 AM EDT Reason for Call: swelling and purple foot, recently treated for an abscess, not getting better, seems to be worse. Outcome: Patient advised to go the Emergency Room now. Patient plans to go to [facility] at this time. Encouraged to test puller and call 911 if anything worsens [...] Denies 7. : denies Protocols used: Foot [id number] [facility]10-20-2024 Miscellaneous Notes* Telephone Encounter - Gwendolyn Hewitt RN - 09/01/2024 9:16 AM EDT Reason for Call: swelling and purple foot, recently treated for an abscess, not getting better, seems to be worse. Outcome: Patient advised to go the Emergency Room now. Patient plans to go to [facility] at this time. Encouraged to test puller and call 911 if anything worsens [...] Denies 7. : denies Protocols used: Foot [id number] [facility]2024 NoteHNO ID: [id number] Author: JEFFY HANEY APRN.WATER USE INSPECTOR Service: ? Author Type: Nurse Practitioner Type: Progress Notes Filed: 08/30/2024 08:54 Note Text: This note was created using [employer]tracks Radioriter. Subjective Litzy Portillo is a 33 year [...] history is provided by the patient. No speech language pathologist assistant was used. Rash This is a new [...] is not crusting. Comments: Warm erythematous irregular [place] croix like present on web of 1st and 2nd toe and dorsal aspect of foot measuring approximately 3 cm. No abscess No petechia -no drainage -no streaking -no clear demarcation Neurological: General: No focal deficit present. Mental Status: She is alert and oriented to person, place, an (more content not included)...[facility]10-17-2024 History of Present illness Narrative* Jeffy Haney APRN.WATER USE INSPECTOR - 08/29/2024 6:19 PM EDT Images from [...] history is provided by the patient. No speech language pathologist assistant was used. Rash This is a new [...] is not crusting. Comments: Warm erythematous irregular [place] croix like present on web of 1st and [...] or worsen Mayra Parkinson Student TEACHING PROVIDER (Physician/PA/SUSTAINABILITY ANALYST) NOTE OF PERSONAL INVOLVEMENT IN CARE: I have personally seen and examined the patient and performed the medical decision-making components. I have reviewed the Advanced Practice Registered Nurse (SUSTAINABILITY ANALYST) Student's documentation and verified the findings in the note as written. Any additions or changes are noted in bold/italics. Signature: Jeffy Haney Date: 08/30/2024 Time: 8:52 AM [facility]23 Discharge summary Author Mckayla Beckman [facility] January 31, 2023 8:10am Note Date/Time January 31, 2023 8:1 0am [facility] Medical Records Department [address] [place] [address] Instructions for Home/Discharge Instructions 01/31/23 0809 MR#: [id number] Acct: [id number] Name: LITZY PORTILLO Rep #:[id number] : 1990 32 From: Mckayla Beckman CNM [...] a Vaginal Discharge Orders/Prescriptions Prescriptions: No Action prenat.vits,monica,yhs-hsyu-rvzgs Tablet 1 tab PO DAILY Referrals / Follow Up: Chavez Devlin MD [Primary Care Provider] - Disposition Disposition (needs filled in before D/C Order can be placed): Home, Self Care 01/31/23 0810<Electronically signed by Mckayla Beckman CNM>Mckayla Beckman CNM CC: Dr. Chavez Devlin MD ~ Signed [facility] Work Phone: 1(432) 182-286103-21-2023 Progress note Author [facility] January 31, 2023 8:09am Note Date/Time January 31, 2023 8:0 9am [facility] Medical Records Department [address] [place] [address] Progress Note - OBGYN 01/31/23 0804 MR#: [id number] Acct: [id number] Name: LITZY PORTILLO Rep #:[id number] : 1990 32 From: Mckayla Beckman CNM PCP: Dr. Chavez Devlin MD Status:ADM I N Location: [place] [address] Subjective Subjective Patient doing well without complaints. [...] Cosigner Signature (if applicable): CC: ~ Signed [facility] Work Phone: 1(529) 437-807203-20-[address] Mg [facility] January 30, 2023 4:13am Note Date/Time January 30, 2023 4:0 6am [facility] Medical Records Department [facility] [place] [address] Instructions for Home/Discharge Instructions 01/30/23 0406 MR#: [id number] Acct: [id number] Name: LITZY PORTILLO Rep #:[id number] : 1990 32 From: Chari randolph MD [...] Chavez Devlin Discharge Orders/Prescriptions Prescriptions: No Action prenat.vits,monica,zce-ibfc-weoxt Tablet 1 tab PO DAILY Referrals / Follow Up: Chavez Devlin MD [Primary Care Provider] - Disposition Disposition (needs filled in before D/C Order can be placed): Home, Self Care 01/30/23412<Electronically signed by Chari Mg MD>Chari Mg MD CC: Dr. Chavez Devlin MD ~ Signed [facility] Work Phone: 1(563) 186-821803-20-2023 History and physical note Author Dr. 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 Chavez Devlin MD Status:ADM I N Location: SC920-3 HPI - General General Date of Admission: 01/30/23 HPI Narrative LITZY PORTILLO, is a 32 F who presents IAL delivers quick within 4 hours. Maternal Data Information LILLY Calculator Estimated Delivery Date Method Current WG Current Estimate 02/11/23 LMP (Certain) 38w 2d Other Estimates 02/08/23 Ultrasound #1 38w 5d PFSH PFSH Medical History Anxiety Melanoma Home Medications prenat.vits,monica,gty-mpad-sbuln 1 tab PO DAILY vitamin 06/17/19 [History Last Taken 02/04/20 08:00] Allergy/AdvReac Type Severity Reaction Status Date / Time No Known Allergies Allergy Verified 01/27/23 10:55 Family History Father Diabetes Colon cancer Surgical History s/p right ear surgery Social History adopted: No household members: spouse and children number of children: 1 current occupational status: employed current occupation: 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 Date Name GA/Weeks Outcome Route Bth Weight Gen Labor Lgth Anesthesia Del Locatn Provider FOB 02/05/20 [place] 41 live - full term Male none [facility] Visit Details Expected Delivery Route/Plan Labor [...] [facility]. [facility]?-?-?-?-?-?-?-?-?-?-?-?- 28w 6d 179 lb [...] testing (2) Supervision of normal : COMMENT: [id number], LILLY 02/11/23, PC Chay, Spouse Wilian (3) Anxiety: COMMENT: no meds, counseling encouraged; stable (4) Active labor at term: PLAN: Plan Patient presents IAL, plan expectant management for , pitocin/AROM PRN if needed. Pain management: plans epidural. GBS neg. Management of any complications: none I have reviewed the [facility] and made any clinically relevant updates. 01/30/230 <Electronically signed by Chari Mg MD> Cosigner Signature (if applicable): CC: Dr. Chari Mg MD; Dr. Chavez Devlin MD~ Signed [facility] Work Phone: 1([phone]) 440-150503-20-2023 Procedure [facility] 07-12-2022 NotePap Smear Specimen AdequacyAugust 2021 4:08pmComment. Satisfactory for evaluation. Endocervical and/or squamous metaplasticcells (endocervical component)are present.[facility]ED A#[id number] Work Phone: Comment on above:Satisfactory for evaluation. Endocervical and/or squamous metaplasticcells (endocervical component)are present.Evaluation note* Diagnosis Onset Date Resolution Status Encounter for IUD removal ac jasmina Anxiety acute Personal history of melanoma in-situ acute acute Supervision of normal [facility] Work Phone: Evaluation note* Diagnosis Onset Date Resolution Status Encounter for IUD removal re solved Anxiety acute acute Supervision of normal acute Personal history of melanoma in-situ resolved Anxiety acute acute Supervision of normal [facility] Work Phone: Evaluation note* Diagnosis Onset Date Resolution Status Anxiety acute acute Supervision of normal acute Anxiety acute acute Supervision of normal acute Anxiety acute acute Supervision of normal acute Anxiety acute acute Supervision of normal acute [facility] Work Phone: evaluation note* Diagnosis Onset Date Resolution Status Anxiety acute acute Supervision of normal acute Anxiety acute acute Supervision of normal acute Anxiety acute acute Supervision of normal acute Anxiety acute acute Supervision of normal acute Anxiety acute acute Supervision of normal acute Anxiety acute acute Supervision of normal acute Anxiety acute acute Supervision of normal acute [facility] Work Phone: evaluation note* Diagnosis Onset [...] Anxiety acute acute Supervision of normal acute [facility] Work Phone: evaluation note* Diagnosis Onset [...] Anxiety resolved resolved Supervision of normal resolved [facility] Work Phone: evaluhsbws note* Diagnosis Cellulitis of right foot- Primary Cellulitis and abscess of foot, except toes documented in this encounter [facility] for referral (narrative)No reason for referral information [facility]City [facility] Work Phone: Chief Complaint and Reason for [...] (MIRENA) February 28, 2025 9: 05am Annual (CHECKOUT SUPERVISOR) April 21, 2025 9:10a m Reason for Visit Admit Date Encounter for IUD removal February 28 9:05am Encounter for routine gynecological exam ination April 21, 2025 9:10am Chief Complaint Admit Date IUD REMOVAL (MIRENA) February 28, 2025 9: 05am Annual (CHECKOUT SUPERVISOR) April 21, 2025 9:10a m OB, dysuria May 27, 2025 10:1 9am Family History Relationship Condition Age at Onset Recorded Date/T meena father Diabetes mellitus Unknown Malignant neoplasm of colon Unknown Advance Directives Advance Directive Response Recorded Date/ Time Living Will No February 05, 2020 4:12am Power of Visual Coordinator No February 04 4:12am Advance Directive Response Recorded Date/ Time Living Will No September 20 6:53pm Power of Visual Coordinator No September 20, 2022 6:53pm Advance Directive Response Recorded Date/ Time Living Will No September 20 7:53pm Power of Visual Coordinator No September 20, 2022 7:53pm Advance Directive Response Recorded Date/ Time Living Will No January 30, 2023 1:51am Power of Visual Coordinator No January 30 1:51am Summary Purpose Additional [...] section and content) DATE CREATED AUTHOR 09/24/2022 [facility] DATE CREATED AUTHOR AUTHOR'S ORGANIZ ATION 09/01/2024 [facility] DATE CREATED AUTHOR AUTHOR'S ORGANIZ ATION 04/28/2025 [facility] Care Teams (unrecognized sec tion and [...] Care Provider, Referring Provider Active Avelina Goodson ADOLESCENT COUNSELOR, ADOLESCENT COUNSELOR-C Attending Provider Active Team Status: Inactive Member [...] Provid er, Attending Provider, Referring Provider Active Security System Installer Relationship Specialty Start Date End Date Chavez Devlin MD [address] [place], [place] [id number] PCP - General Family Medicine 07/06/15 Security System Installer Relationship Specialty Start Date End Date Chavez Devlin MD [address] [place], [place] [address] PCP - General Family Medicine 07/06/15 Team [...] 2025 End: April 21, 2025 Avelina Goodson ADOLESCENT COUNSELOR, ADOLESCENT COUNSELOR-C Attending Provider Active Start: April 21, 2025 End: April 21, 2025 Team Status: Inactive Member Role Status Dates Dr. Chavez Devlin MD Primary Care Provider Active Start: April 21, 2025 End: April 21, 2025 Avelnia Goodson ADOLESCENT COUNSELOR, ADOLESCENT COUNSELOR-C Attending Provider Active Start: April 21, 2025 End: April 21, 2025 Avelina Goodson ADOLESCENT COUNSELOR, ADOLESCENT COUNSELOR-C Referring Provider Active Start: April 21, 2025 [...] 2025 End: April 21, 2025 Avelina Goodson ADOLESCENT COUNSELOR, ADOLESCENT COUNSELOR-C Attending Provider Active Start: April 21, 2025 End: April 21, 2025 Team Status: Inactive Member Role/Relationship Status Dates Dr. Chavez Devlin MD Primary Care Provider Active Start: April 21, 2025 End: April 21, 2025 Avelina Goodson ADOLESCENT COUNSELOR, ADOLESCENT COUNSELOR-C Attending Provider Active Start: April 21, 2025 End: April 21, 2025 Avelina Goodson ADOLESCENT COUNSELOR, ADOLESCENT COUNSELOR-C Referring Provider Active Start: April 21, 2025 End: April 21, 2025 Team Status: Inactive Member Role/Relationship Status Dates Dr. Chavez Devlin MD Primary Care Provider Active Start: May 27, 2025 End: May 27, 2025 Dr. Chavez Devlin MD Referring Provider Active Start: May 27, 2025 End: May 27, 2025 Avelina Goodson ADOLESCENT COUNSELOR, ADOLESCENT COUNSELOR-C Attending Provider Active Start: May 27, 2025 End: May 27, 2025 Source Comments (unrecognize d section and content) In the event this informatio n is protected by the Federal Confidentiality of Alcohol and Drug Abuse Patient Records regulations: The Federal rules restrict any use of the information to criminally investigate or prosecute any alcohol or drug abuse patient.[facility] the event this information is protected by the Federal Confidentiality of Alcohol and Drug Abuse Patient Records regulations: The Federal rules restrict any use of the information to criminally investigate or prosecute any alcohol or drug abuse patient.[facility] Reason for Visit (unrecogniz ed section and [...] BE BASED ON THE PRIMARY CLINICAL RECORDS. [employer] [facility]. provides no warranty or guarantee of the accuracy or completeness of information in this document.
== END | disposition home or self-care (01) ==
LOC: LABSPEC 12:08
PROVIDERS: PCP Family Medicine; Visit Provider Nurse Practitioner Women's Health
DX: R30.0 Dysuria (principal)
CPT/HCPCS: 87077; 87086; 87088; 87186

== ENCOUNTER → 2025-06-13 | Outpatient (CLI) | payer OTHER, SELFPAY ==
[2025-06-13 11:45] LABS: Hematocrit 36.6 % (37-47); Hemoglobin 12.5 g/dL (12.0-15.0); Immature Granulocytes Count 0.020 X10^3/uL (0.0-0.0); Mean Corp Hgb Conc 34.2 g/dL (32-36); Mean Corpuscular Volume 87.8 fL (81-99); Mean Platelet Vol. 10.9 fl (6.2-12.0); NRBC Flagged by Analyzer 0 % (0-5); Platelet Count 187 K/mm3 (150-450); RBC Distribution Width CV 12.0 % (11.6-14.6); RBC Distribution Width SD 38.5 fl (35.1-43.9); Red Blood Count 4.17 M/mm3 (4.2-5.4); White Blood Count 5.1 K/mm3 (4.4-11.0)
[2025-06-13 12:18] LABS: HIV Nonreactive (Nonreactive); Hepatitis B Surface Antigen Nonreactive (Nonreactive); Hepatitis C Antibody Nonreactive (Nonreactive); Syphilis Antibodies Nonreactive (Nonreactive)
[2025-06-16 21:07] LABS: Chlamydia By Nucleic Acid AMP Negative (Negative); Gonococcus By Nucleic Acid AMP Negative (Negative)
== END | disposition home or self-care (01) ==
LOC: BWCLAB 10:56
PROVIDERS: PCP Family Medicine; Referring Provider Advanced Practice Midwife; Visit Provider Advanced Practice Midwife
DX: Z34.90 Encounter for supervision of normal pregnancy, unspecified, unspecified trimester (principal)
CPT/HCPCS: 36415; 85025; 86703; 86762; 86780; 86803; 86850; 86900; 86901; 87086; 87340; 87491; 87591

== ENCOUNTER → 2025-09-05 | Outpatient (CLI) | payer OTHER, SELFPAY | END | disposition home or self-care (01) | PROVIDERS: PCP Family Medicine; Visit Provider Obstetrics & Gynecology | DX: Z34.90 Encounter for supervision of normal pregnancy, unspecified, unspecified trimester (principal) | CPT/HCPCS: 36415 ==

== ENCOUNTER → 2025-10-31 | Outpatient (CLI) | payer OTHER, SELFPAY ==
[2025-10-31 12:09] LABS: Hematocrit 34.9 % (37-47); Hemoglobin 11.8 g/dL (12.0-15.0); Immature Granulocytes Count 0.040 X10^3/uL (0.0-0.0); Mean Corp Hgb Conc 33.8 g/dL (32-36); Mean Corpuscular Volume 90.6 fL (81-99); Mean Platelet Vol. 11.2 fl (6.2-12.0); NRBC Flagged by Analyzer 0 % (0-5); Platelet Count 174 K/mm3 (150-450); RBC Distribution Width CV 13.3 % (11.6-14.6); RBC Distribution Width SD 43.6 fl (35.1-43.9); Red Blood Count 3.85 M/mm3 (4.2-5.4); White Blood Count 7.7 K/mm3 (4.4-11.0)
[2025-10-31 13:02] LABS: Glucose Challenge Gest 1H 50g 95 mg/dL (70-140); HIV Nonreactive (Nonreactive); Syphilis Antibodies Nonreactive (Nonreactive)
== END | disposition home or self-care (01) ==
PROVIDERS: Advanced Practice Midwife; PCP Family Medicine; Visit Provider Obstetrics & Gynecology
DX: Z34.90 Encounter for supervision of normal pregnancy, unspecified, unspecified trimester (principal); Z13.1 Encounter for screening for diabetes mellitus
CPT/HCPCS: 36415; 82950; 85025; 86703; 86780